=== PATIENT | male | born 1995 | race Caucasian/White ===

== ENCOUNTER → 2020-09-26 09:52 | Outpatient (CLI) | payer OTHER, SELFPAY ==
[2020-09-26 11:02] LABS: Erythrocyte Sedimentation Rate 7 mm/hr (0-20)
[2020-09-26 11:04] LABS: Absolute Lymphocyte Count 2.52 X10^3/uL (0.83-4.51); Absolute Neutrophil Count 4.2 X10^3/uL (2.0-7.7); Basophil# 0.08 X10^3/uL; Eosinophils% 3.9 % (0-5); Hematocrit 46.2 % (40-54); Lymphocyte # 2.52 X10^3/ul (4.0); Lymphocyte % 32.4 % (19-41); Mean Corp Hgb Conc 32.5 g/dL (32-36); Mean Corpuscular Hgb 28.1 pg (27.0-32.0); Mean Corpuscular Volume 86.7 fL (80-94); Mean Platelet Vol. 12.1 fl (6.2-12.0); Monocyte# 0.63 X10^3/uL; Monocyte% 8.1 % (0-10); NRBC Flagged by Analyzer 0 % (0-5); Neutrophil # 4.22 X10^3/uL (2.7-7.7); Neutrophil % 54.3 % (47-70); Platelet Count 230 K/mm3 (150-450); RBC Distribution Width CV 13.8 % (11.6-14.6); Red Blood Count 5.33 M/mm3 (4.6-6.2); White Blood Count 7.8 K/mm3 (4.4-11.0)
[2020-09-26 11:26] LABS: ALB/GLOB Ratio 1.4 RATIO (0.9-2.4); AST(SGOT) 19 U/L (15-37); Alanine Aminotransfer ALT/SGPT 36 U/L (16-61); Albumin, Serum 4.6 g/dL (3.2-5.0); Alkaline Phosphatase 58 U/L (45-117); Anion Gap 4 (5-15); BUN 12 mg/dL (7-18); BUN/Creat Ratio 13.7 RATIO (10-20); Calcium,Total 9.7 mg/dL (8.5-10.1); Chloride 107 mmol/L (98-107); Creatinine, Serum 0.88 mg/dL (0.70-1.30); EST Glomerular Filtration Rate 111 mL/min (>60); Est Glom Filt Rate - Afr Amer 134 mL/min (>60); Globulin 3.2 g/dL (2.2-4.2); Glucose 92 mg/dL (74-106); Potassium 3.8 mmol/L (3.5-5.1); Protein, Total 7.8 g/dL (6.4-8.2); Sodium Level 138 mmol/L (136-145)
[2020-09-27 16:08] LABS: Endomysial Antibody IgA Negative (Negative)
[2020-09-27 16:44] LABS: Immunoglobulin A 175 mg/dL (90-386); t-Transglutaminase IgA <2 U/mL (0-3)
== END ==
DX: R10.9 Unspecified abdominal pain (principal); R10.84 Generalized abdominal pain; R63.4 Abnormal weight loss
CPT/HCPCS: 36415; 80053; 82784; 83516; 85025; 85652; 86255

== ENCOUNTER 2021-09-11 15:45 | Emergency (ER) | payer OTHER, SELFPAY ==
[2021-09-11 15:46] VITALS: BP 162/94; PULSE 125; RESP 18; TEMP 36.7; O2SAT 97; BMI 30.8
[2021-09-11 16:06] LABS: Absolute Lymphocyte Count 1.36 X10^3/uL (0.83-4.51); Absolute Neutrophil Count 7.6 X10^3/uL (2.0-7.7); Basophil# 0.03 X10^3/uL; Basophil% 0.3 % (0-1); Hematocrit 45.6 % (40-54); Hemoglobin 15.7 g/dL (13.0-16.5); Lymphocyte # 1.36 X10^3/ul (0.83-4.51); Lymphocyte % 14.2 % (19-41); Mean Corp Hgb Conc 34.4 g/dL (32-36); Mean Corpuscular Hgb 28.8 pg (27.0-32.0); Mean Corpuscular Volume 83.7 fL (80-94); Mean Platelet Vol. 10.8 fl (6.2-12.0); Monocyte# 0.52 X10^3/uL; Monocyte% 5.4 % (0-10); NRBC Flagged by Analyzer 0 % (0-5); Neutrophil # 7.62 X10^3/uL (2.7-7.7); Neutrophil % 79.7 % (47-70); Platelet Count 296 K/mm3 (150-450); RBC Distribution Width CV 13.4 % (11.6-14.6); RBC Distribution Width SD 41.1 fl (35.1-43.9); Red Blood Count 5.45 M/mm3 (4.6-6.2); White Blood Count 9.6 K/mm3 (4.4-11.0)
[2021-09-11 16:19] LABS: Anion Gap 9 (5-15); BUN 12 mg/dL (7-18); BUN/Creat Ratio 11.3 RATIO (10-20); Calcium,Total 9.7 mg/dL (8.5-10.1); Chloride 103 mmol/L (98-107); Creatinine, Serum 1.06 mg/dL (0.70-1.30); EST Glomerular Filtration Rate 89 mL/min (>60); Est Glom Filt Rate - Afr Amer 107 mL/min (>60); Estimated Creatinine Clearance 108.08 ml/min; Glucose 106 mg/dL (74-106); Potassium 3.8 mmol/L (3.5-5.1); Sodium Level 137 mmol/L (136-145)
--- NOTE | 2021-09-11 16:30 | EDS_ITS ---
HPI HPI - GI History of Present Illness Chief Complaint: Abd Pain Detail of Chief Complaint: Abdominal pain Informant: patient Narrative Narrative: Is the emergency department complaint of abdominal pain that started this morning. Patient states that he has a history of chronic abdominal pain that he has been dealing with for about 6 and half years. Patient used to see a hemodialysis patient care specialist in [place] and that he moved to this area about a year ago. He was seeing a hemodialysis patient care specialist and [place] but then his insurance changed and he would like to follow-up with somebody here locally. Patient states that he has intermittent bouts of severe abdominal pain monthly or bimonthly. This pain is similar to other bouts he had in the past. Patient states that he had an upper and lower scope about 6 months ago that showed the beginning of ulcers in his stomach and some polyps that he had removed from his colon. Patient takes daily pantoprazole. Patient currently rates his pain a 6 out of 10. He describes nausea and vomiting. Patient also with history of chronic diarrhea. He denies any fevers. Patient states that normally he does not go to the hospital he gets these episodes. Patient also states that typically GI cocktail seem to be quite helpful in treating his pain. Prior similar symptoms: Yes PFSH PFSH Medical History no medical history Home Medications dicyclomine 20 mg PO TIDAC #20 capsule 09/11/21 [Rx Last Taken Unknown] lidocaine HCl [Lidocaine Viscous] 15 ml MUCOUS MEMBRANE Q8H PRN #100 ml 09/11/21 [Rx Last Taken Unknown] Allergy/AdvReac Type Severity Reaction Status Date / Time No Known Allergies Allergy Verified 09/11/21 15:48 Social History Smoking Status: Unknown if ever smoked ROS [facility] ED Constitutional Constitutional ED: Reports systems reviewed and no addt'l complaints, except as documented; Denies body ache(s), change in weight or chills Eyes Eyes: Denies acute decrease in peripheral vision, change in vision, double vision or loss of vision ENT ENT ED: Reports none; Denies ear pain, lip swelling, loss taste/smell, neck pain, otalgia or sore throat Cardiovascular Cardiovascular: Reports none; Denies abdominal pain, chest pain with activity, leg edema, lightheadedness, palpitations, rapid heart rate or syncope Respiratory/Chest Respiratory/Chest: Reports none; Denies change in mental status, dry cough, dyspnea, hemoptysis, shortness of breath at rest or shortness of breath with exertion Gastrointestinal Gastrointestinal: Reports none, abdominal pain, diarrhea, nausea and vomiting; Denies change in stool character, hematemesis, hematochezia, melena or rectal bleeding Genitourinary Genitourinary ED: Reports none; Denies abdominal discomfort, anuria, dysuria, genital pain or polyuria Musculoskeletal Musculoskeletal: Reports none; Denies arthralgias, back pain, difficulty walking, extremity pain, muscle weakness or myalgias Integumentary Reports none; Denies abscess or rash Neurologic Neurologic: Reports none; Denies abnormal gait, confusion, focal weakness, frequent falls, headache(s), loss of vision, numbness, paresthesias, radicular pain, vertigo or weakness Psychiatric Psychiatric: Reports systems reviewed and no addt'l complaints, except as documented and none; Denies behavioral changes, confusion, difficulty concentrating, hallucinations, suicidal ideation, tactile hallucinations or visual hallucinations Endocrine Endocrinology: Denies none, cold intolerance, excessive sweating, fatigue or heat intolerance Hematologic/Lymphatic Hematologic/Lymphatic: Reports none; Denies anemia, easy bleeding or easy bruising Allergic/Immunologic Allergic/Immunologic ED: Denies as per HPI, none, lip swelling, mouth swelling, throat swelling, tongue swelling or hives EXAM Physical Exam Const Vital Signs: 09/11/21 15:46 Temperature 98.1 F Temperature Source Temporal Pulse Rate 125 H Respiratory Rate 18 Blood Pressure 162/94 H Blood Pressure Mean 116 Pulse Ox 97 Oxygen Delivery Method Room Air Positive well nourished and well developed General Appearance ED: well developed and NAD HEENT Reports TM's clear and moist mucous membranes normocephalic and atraumatic; Negative for trauma or tenderness Tympanic Membrane ED: Yes TM's clear Eyes PERRL and EOMs intact bilaterally General Eye ED: Negative for pale conjunctiva or scleral icterus Neck no lymphadenopathy, supple and no JVD General: Negative for tenderness Chest Wall inspection of chest normal and palpation of chest normal Chest: Negative for tenderness Resp normal respiratory effort and clear to auscultation bilaterally Effort and Inspection: Negative for respiratory distress or pain with movement Auscultation: Negative for rhonchi, wheezes or diminished lung sounds Cardio regular rate, regular rhythm, S1 normal heart sound, S2 normal heart sound and no murmurs Peripheral Pulses: pulses 2+ throughout GI normal to inspection, nondistended, normoactive bowel sounds, soft to palpation, non-distended and no masses GI Narrative: Patient with diffuse tenderness over the epigastric region as well as the abdomen diffusely. There is no rebound, rigidity, or peritoneal signs. Palpation: tender Back/Spine no CVA tenderness and no thoracic nor lumbar tenderness Extremity normal to inspection General Extremety ED: Negative for edema General Extremity: Negative for edema Neuro oriented x3, CN's II-XII intact bilaterally, no sensory deficits noted and gait normal Sensorium / Orientation: awake, alert, oriented to person, oriented to place and oriented to time Motor Exam: strength 5/5 throughout and strength abnormal Psych mental status grossly normal Skin no rashes or lesions noted and no wounds MDM MDM MDM Narrative Medical decision making narrative: IV line established on arrival. Patient did receive a GI cocktail which did seem to help his pain but then the pain started come back and received 4 mg of morphine and [address] scan of the abdomen pelvis without contrast showed some thickening of the descending colon and sigmoid colon which could represent colitis versus nondistended bowel. Clinically I do not feel patient has colitis. Patient states that presentation of his symptoms are similar to what he has had over the last 6-1/2 years and typically the only thing that seems to help his GI cocktails. Patient used to be on Bentyl and ran out. Patient will be given a prescription for GI cocktails as well as Bentyl and referral to GI for follow-up. Patient advised to return if worsening pain, fever, bloody stools, or condition should worsen anyway. Lab Data Attestation: I reviewed the patient's lab results. Labs: Laboratory Results - last 24 hr 09/11/21 09/11/21 09/11/21 15:56 15:56 15:56 WBC 9.6 RBC 5.45 Hgb 15.7 Hct 45.6 MCV 83.7 MCH 28.8 MCHC 34.4 RDW Std Deviation 41.1 RDW Coeff of Misty 13.4 Plt Count 296 MPV 10.8 Immature Gran % (Auto) 0.400 Neut % (Auto) 79.7 H Lymph % (Auto) 14.2 L [place] % (Auto) 5.4 Eos % (Auto) 0.0 Baso % (Auto) 0.3 Absolute Neuts (auto) 7.6 Absolute Lymphs (auto) 1.36 Nucleated RBC % 0 Sodium 137 Potassium 3.8 Chloride 103 Carbon Dioxide 25.0 Anion Gap 9 BUN 12 Creatinine 1.06 Estim Creat Clear Calc 108.08 Est GFR (MDRD) Af Amer 107 Est GFR (MDRD) Non-Af 89 BUN/Creatinine Ratio 11.3 Glucose 106 Calcium 9.7 Total Bilirubin 0.40 Direct Bilirubin 0.12 AST 17 ALT 34 Alkaline Phosphatase 61 Total Protein 8.1 Albumin 4.7 Globulin 3.4 Lipase Urine Color Urine Clarity Urine pH Ur Specific [place] Urine Protein Urine Glucose (UA) Urine Ketones Urine Occult Blood Urine Nitrite Urine Bilirubin Urine Urobilinogen Ur Leukocyte Esterase Urine RBC Urine WBC Ur Squamous Epith Cells Urine Bacteria Urine Mucus 09/11/21 09/11/21 15:56 17:25 WBC RBC Hgb Hct MCV MCH MCHC RDW Std Deviation RDW Coeff of Misty Plt Count MPV Immature Gran % (Auto) Neut % (Auto) Lymph % (Auto) [place] % (Auto) Eos % (Auto) Baso % (Auto) Absolute Neuts (auto) Absolute Lymphs (auto) Nucleated RBC % Sodium Potassium Chloride Carbon Dioxide Anion Gap BUN Creatinine Estim Creat Clear Calc Est GFR (MDRD) Af Amer Est GFR (MDRD) Non-Af BUN/Creatinine Ratio Glucose Calcium Total Bilirubin Direct Bilirubin AST ALT Alkaline Phosphatase Total Protein Albumin Globulin Lipase 96 Urine Color Yellow Urine Clarity Clear Urine pH 7.0 Ur Specific [place] 1.010 Urine Protein 15 H Urine Glucose (UA) Normal Urine Ketones 15 H Urine Occult Blood Negative Urine Nitrite Negative Urine Bilirubin Negative Urine Urobilinogen Normal Ur Leukocyte Esterase Negative Urine RBC 0 SEEN Urine WBC 0 SEEN Ur Squamous Epith Cells 0 SEEN Urine Bacteria RARE Urine Mucus 0 SEEN Radiography Diagnostic Testing: Clinical Impression(s) from Imaging Studies Abdomen/Pelvis CT 09/11/21 17:53 IMPRESSION: Colitis of the descending and rectosigmoid colon versus artifact of under distention. Individualized dose optimization techniques were used for this CT. at 1847 Reported and signed by: Richmond Andrea MD Electronically Signed: Richmond Andrea MD at 18:46 EST Reading Location ID and State: [address] [place] [address] Tel , Service support , Discharge Plan Triage Chief Complaint: Abd Pain ED Provider: Barron Salazar Dx/Rx/DC Orders Clinical Impression: Abdominal pain Instructions: ED Abdominal Pain Unkn Cause Male... Prescriptions: New dicyclomine 10 MG capsule 20 mg PO TIDAC Qty: 20 RF: 0 lidocaine HCl [Lidocaine Viscous] 2 % solution 15 ml mucous membrane Q8H PRN (Reason: pain) Qty: 100 RF: 0 [facility] Referrals: Dov Mendoza DO [STAFF PHYSICIAN] - 3-[address] [facility] V[facility] [Primary Care Provider] - Disposition Disposition: Home, Self Care
[2021-09-11] MEDS: 0.9% Normal Saline 1,000 ML 999 ML IV (17:01)
[2021-09-11] MEDS: Ondansetron 4 MG/2 ML Vial IV ×2 (17:08→18:09)
[2021-09-11] MEDS: Mag Hydrox/Al Hydrox/Simeth 30 ML UDC PO (17:08)
[2021-09-11 17:28] LABS: AST(SGOT) 17 U/L (15-37); Alanine Aminotransfer ALT/SGPT 34 U/L (16-61); Albumin, Serum 4.7 g/dL (3.2-5.0); Alkaline Phosphatase 61 U/L (45-117); Bilirubin, Direct 0.12 mg/dL (0.00-0.30); Globulin 3.4 g/dL (2.2-4.2); Protein, Total 8.1 g/dL (6.4-8.2)
[2021-09-11 17:32] LABS: Lipase 96 U/L (73-393)
[2021-09-11 17:37] LABS: Mucous, Urine 0 SEEN /hpf (<or=2+); Red Blood Cells-Urine 0 SEEN /hpf (0-5); Squamous Epithelial Cells - UA 0 SEEN /hpf (0-5); White Blood Cells 0 SEEN /hpf (0-5)
--- NOTE | 2021-09-11 17:53 | CT_ITS ---
HISTORY: abdominal pain EXAMINATION: CT Abdomen And Pelvis W/O Contrast Injection TECHNIQUE: Multiple axial images were obtained of the abdomen and pelvis without oral or IV contrast. A radiation dose optimization technique was used for this scan. IV Contrast dosage and agent: None. Oral contrast: None. COMPARISON: None FINDINGS: LOWER CHEST: Lung bases are clear. No cardiomegaly or pericardial effusion. LIVER: Homogeneous. No focal mass. GALLBLADDER AND BILIARY TREE: No calcified gallstones. No gallbladder distension or wall edema. No intra- or extrahepatic biliary ductal dilation. PANCREAS: No focal cystic or solid mass. SPLEEN: Normal size without focal cystic or solid mass. ADRENAL GLANDS: No nodules. KIDNEYS AND URETERS: Normal renal size and position. No hydronephrosis or nephrolithiasis. PERITONEUM: No ascites or free air. BOWEL: Normal appendix. No stomach or bowel distension. Diffuse colonic wall thickening and minimal pericolonic stranding of the underdistended descending and rectosigmoid colon. LYMPH NODES: No enlarged mesenteric or retroperitoneal lymph nodes. VESSELS: Aorta is non-dilated. URINARY BLADDER: Unremarkable. REPRODUCTIVE ORGANS: No pelvic masses. ABDOMINAL WALL: No discrete abdominal or pelvic wall hernia. BONES: No acute or aggressive abnormality. CT/Abdomen/Pelvis without Cont IMPRESSION: Colitis of the descending and rectosigmoid colon versus artifact of under distention. Individualized dose optimization techniques were used for this CT. at 1847 Reported and signed by: Richmond Andrea MD Electronically Signed: Richmond Andrea MD at 18:46 EST ,
[2021-09-11 17:54] LABS: Color, Urine Yellow (Yellow); Glucose, Dipstick Normal (Normal); Ketone-Dipstick 15 mg/dl (Negative); Leukocyte Esterase-Dipstick Negative /ul (Negative); Nitrite-Dipstick Negative (Negative); Occult Blood-Urine Negative /ul (Negative); Protein-Dipstick 15 mg/dl (Negative); Urine Bilirubin Dipstick Negative (Negative); Urine Clarity Clear (Clear); Urine Urobilinogen Normal (Normal)
[2021-09-11] MEDS: Morphine 4 MG/ML Syringe IV (18:07)
[2021-09-11 18:10] LABS: Bacteria RARE /hpf (None Seen)
[2021-09-11 19:36] VITALS: BP 135/78; PULSE 90; RESP 18; O2SAT 98
== END 2021-09-11 19:37 | disposition home or self-care (01) ==
PROVIDERS: Emergency Provider Emergency Medicine; Visit Provider Emergency Medicine
DX: R10.9 Unspecified abdominal pain (principal); Z87.19 Personal history of other diseases of the digestive system; K52.9 Noninfective gastroenteritis and colitis, unspecified
CPT/HCPCS: 74176; 80048; 80076; 81001; 83690; 85025; 96361; 96374; 96375; 96376; 99283; A4216; J2405

== ENCOUNTER 2021-09-21 16:20 | Emergency (ER) | payer OTHER, SELFPAY ==
[2021-09-21 16:20] VITALS: BP 161/114; PULSE 103; RESP 18; TEMP 36.2; O2SAT 99; BMI 31.5
[2021-09-21 17:29] VITALS: BP 183/116; PULSE 83; RESP 19; TEMP 36.8; O2SAT 100
--- NOTE | 2021-09-21 17:50 | ED.VIS.GI ---
HPI HPI - GI History of Present Illness Chief Complaint: Abd Pain Informant: patient Abdominal Pain/Flank Pain Onset: Today Context: Sudden Onset Timing: Continuous Quality: Cramping Location: Epigastric and LLQ Worsened by: Nothing Relieved by: - (GI cocktail) Nausea/Vomiting/Emesis GI Symptom: Positive for Nausea and Vomiting Diarrhea/Melena/Hematochezia GI Symptom: Positive for Diarrhea Associated Symptoms Associated Symptoms: Negative for Dysuria, Frequency and Hematuria Narrative Narrative: Patient presents with abdominal pain that began today. Patient states he has had ongoing episodes of this for the past several years. Patient states his pain is cramping. Patient states it is over the left lower quadrant and epigastric area. Patient was seen here approximately 10 days ago and was given GI cocktail and IV medication at that time which helped. Patient states she is unable to keep anything down today. Patient states he is having dark emesis and is concerned about blood in his emesis. Patient states his stools have been somewhat dark as well. Patient denies any dysuria or hematuria. Patient denies any fevers or chills. PFSH PFS Medical History Colon wall thickening Home Medications lidocaine HCl [Lidocaine Viscous] 15 ml MUCOUS MEMBRANE Q8H PRN #100 ml 09/11/21 [Rx Last Taken Unknown] buspirone mg 09/21/21 [History Last Taken Unknown] dextroamphetamine-amphetamine PO 09/21/21 [History Last Taken Unknown] hydrocodone-acetaminophen 1 tab PO Q6H PRN PRN 3 Days #10 tablet 09/21/21 [Rx Last Taken Unknown] Allergy/AdvReac Type Severity Reaction Status Date / Time No Known Allergies Allergy Verified 09/21/21 16:22 Social History Smoking Status: Current every day smoker tobacco type: e-cigarettes ROS ROS ED Constitutional Constitutional ED: Denies chills or fever(s) Eyes Eyes: Denies blurry vision or change in vision ENT ENT ED: Denies rhinorrhea or sore throat Cardiovascular Cardiovascular: Denies chest pain or palpitations Respiratory/Chest Respiratory/Chest: Denies cough or dyspnea Gastrointestinal Gastrointestinal: Reports abdominal pain, diarrhea, nausea and vomiting Genitourinary Genitourinary ED: Denies dysuria or hematuria Musculoskeletal Musculoskeletal: Denies back pain or neck pain Integumentary Denies abscess or rash Neurologic Neurologic: Reports headache(s); Denies weakness Allergic/Immunologic Allergic/Immunologic ED: Denies mouth swelling or urticaria EXAM Physical Exam Const Vital Signs: 09/21/21 16:20 09/21/21 17:29 09/21/21 19:10 Temperature 97.1 F L 98.3 F Temperature Source Temporal Oral Pulse Rate 103 H 83 82 Respiratory Rate 18 19 H 16 Blood Pressure 161/114 H 183/116 H 154/116 H Blood Pressure Mean 129 138 128 Pulse Ox 99 100 97 Oxygen Delivery Method Room Air Room Air Room Air 09/21/21 21:20 Temperature Temperature Source Pulse Rate 92 Respiratory Rate 23 H Blood Pressure 144/96 H Blood Pressure Mean 112 Pulse Ox 98 Oxygen Delivery Method Room Air Positive well nourished and well developed General Appearance ED: well developed HEENT Reports moist mucous membranes Neck supple and no JVD Resp normal respiratory effort and clear to auscultation bilaterally Cardio regular rate, regular rhythm and no murmurs GI normal to inspection, nondistended, normoactive bowel sounds Palpation: soft and tender epigastric and LLQ; Negative for guarding or rebound tenderness present Extremity normal to inspection General Extremety ED: Negative for edema or tenderness General Extremity: Negative for edema Neuro oriented x3, CN's II-XII intact bilaterally and no sensory deficits noted Sensorium / Orientation: alert Motor Exam: strength 5/5 throughout Psych mental status grossly normal Skin no rashes or lesions noted MDM MDM MDM Narrative Medical decision making narrative: Patient was given IV fluids, morphine, Bentyl, and Zofran initially. CBC was within normal limits. Comprehensive metabolic profile showed a mild hypokalemia 3.2. Urinalysis shows urine ketones of 150 but there is no evidence of urinary tract infection. CT scan of the abdomen and pelvis was obtained. There is no acute intra-abdominal abnormality. This was interpreted by the radiologist and reviewed by myself. Patient still complaining of some pain and nausea after this. Patient was given a repeat dose of morphine and Zofran. Patient was advised of his findings. Patient states he has an appoint with Dr. Mendoza, card hand, at the end of this month. Patient was given a prescription for a short course of [place]. Patient was instructed to continue his pantoprazole as previously prescribed. Patient understood and was agreeable with the plan. All questions were answered. Lab Data Attestation: I reviewed the patient's lab results. Labs: Laboratory Results - last 24 hr 09/21/21 09/21/21 09/21/21 17:25 17:25 20:57 WBC 9.0 RBC 5.39 Hgb 15.2 Hct 45.7 MCV 84.8 MCH 28.2 MCHC 33.3 RDW Std Deviation 42.0 RDW Coeff of Misty 13.5 Plt Count 286 MPV 10.6 Immature Gran % (Auto) 0.200 Neut % (Auto) 85.3 H Lymph % (Auto) 9.3 L [place] % (Auto) 4.7 Eos % (Auto) 0.3 Baso % (Auto) 0.2 Absolute Neuts (auto) 7.7 Absolute Lymphs (auto) 0.83 Nucleated RBC % 0 Sodium 139 Potassium 3.2 L Chloride 105 Carbon Dioxide 27.0 Anion Gap 7 BUN 12 Creatinine 1.04 Estim Creat Clear Calc 110.16 Est GFR (MDRD) Af Amer 110 Est GFR (MDRD) Non-Af 91 BUN/Creatinine Ratio 11.5 Glucose 111 H Calcium 9.8 Total Bilirubin 0.60 Direct Bilirubin 0.19 AST 27 ALT 46 Alkaline Phosphatase 67 Total Protein 8.1 Albumin 4.6 Globulin 3.5 Albumin/Globulin Ratio 1.3 Urine Color Yellow Urine Clarity Sl. Cloudy Urine pH 8.0 Ur Specific [place] 1.015 Urine Protein 15 H Urine Glucose (UA) Normal Urine Ketones 150 A* Urine Occult Blood 10 H Urine Nitrite Negative Urine Bilirubin Negative Urine Urobilinogen Normal Ur Leukocyte Esterase Negative Urine RBC 0-5 SEEN Urine WBC 0 SEEN Ur Squamous Epith Cells 0-5 SEEN Amorphous Sediment 1+ PHOS Urine Bacteria 0 SEEN Urine Mucus 0 SEEN Radiography Diagnostic Testing: Clinical Impression(s) from Imaging Studies Abdomen/Pelvis CT 09/21/21 19:40 IMPRESSION: No acute intra-abdominal process. Small hiatal hernia. Electronically Signed: Vilma Espinoza MD at 20:02 EST , Discharge Plan Triage Chief Complaint: Abd Pain ED Provider: Schwiger,Jack Dx/Rx/DC Orders Clinical Impression: Abdominal pain of unknown cause Instructions: ED Abdominal Pain Unkn Cause Male... Prescriptions: New hydrocodone-acetaminophen [hydrocodone-acetaminophen] 1 TABLET tablet 1 tab PO Q6H PRN PRN (Reason: Pain) 3 Days Qty: 10 RF: 0 No Action lidocaine HCl [Lidocaine Viscous] 2 % solution 15 ml mucous membrane Q8H PRN (Reason: pain) Qty: 100 RF: 0 buspirone 10 mg tablet RF: 0 dextroamphetamine-amphetamine 25 mg capsule,extended release 24hr PO RF: 0 [facility] Referrals: Friend,DO Dov [STAFF PHYSICIAN] - Keep [place] [facility] - 3-5 Days Disposition Disposition: Home, Self Care
[2021-09-21 17:51] LABS: Absolute Lymphocyte Count 0.83 X10^3/uL (0.83-4.51); Absolute Neutrophil Count 7.7 X10^3/uL (2.0-7.7); Basophil# 0.02 X10^3/uL; Basophil% 0.2 % (0-1); Eosinophil# 0.03 X10^3/uL; Eosinophils% 0.3 % (0-5); Hematocrit 45.7 % (40-54); Hemoglobin 15.2 g/dL (13.0-16.5); Lymphocyte # 0.83 X10^3/ul (0.83-4.51); Lymphocyte % 9.3 % (19-41); Mean Corp Hgb Conc 33.3 g/dL (32-36); Mean Corpuscular Hgb 28.2 pg (27.0-32.0); Mean Corpuscular Volume 84.8 fL (80-94); Mean Platelet Vol. 10.6 fl (6.2-12.0); Monocyte# 0.42 X10^3/uL; Monocyte% 4.7 % (0-10); NRBC Flagged by Analyzer 0 % (0-5); Neutrophil # 7.65 X10^3/uL (2.7-7.7); Neutrophil % 85.3 % (47-70); Platelet Count 286 K/mm3 (150-450); RBC Distribution Width CV 13.5 % (11.6-14.6); Red Blood Count 5.39 M/mm3 (4.6-6.2)
[2021-09-21 17:58] LABS: ALB/GLOB Ratio 1.3 RATIO (0.9-2.4); AST(SGOT) 27 U/L (15-37); Alanine Aminotransfer ALT/SGPT 46 U/L (16-61); Albumin, Serum 4.6 g/dL (3.2-5.0); Alkaline Phosphatase 67 U/L (45-117); Anion Gap 7 (5-15); BUN 12 mg/dL (7-18); BUN/Creat Ratio 11.5 RATIO (10-20); Bilirubin, Direct 0.19 mg/dL (0.00-0.30); Calcium,Total 9.8 mg/dL (8.5-10.1); Chloride 105 mmol/L (98-107); Creatinine, Serum 1.04 mg/dL (0.70-1.30); EST Glomerular Filtration Rate 91 mL/min (>60); Est Glom Filt Rate - Afr Amer 110 mL/min (>60); Estimated Creatinine Clearance 110.16 ml/min; Globulin 3.5 g/dL (2.2-4.2); Glucose 111 mg/dL (74-106); Potassium 3.2 mmol/L (3.5-5.1); Protein, Total 8.1 g/dL (6.4-8.2); Sodium Level 139 mmol/L (136-145)
[2021-09-21] MEDS: Ondansetron 4 MG/2 ML Vial IV ×2 (18:01→19:57)
[2021-09-21] MEDS: Morphine 4 MG/ML Syringe IV ×2 (18:01→19:57)
[2021-09-21] MEDS: 0.9% Normal Saline 1,000 ML 1000 ML IV (18:02)
[2021-09-21] MEDS: Dicyclomine 20 MG/2 ML Vial IM (18:06)
--- NOTE | 2021-09-21 18:28 | ED.RN ---
PER PT REQUEST, THIS RN CONTACTED GIRLFRIEND DANIEL AT INFORMED HER OF PT DEPARTMENT IN ED.
[2021-09-21 19:10] VITALS: BP 154/116; PULSE 82; RESP 16; O2SAT 97
--- NOTE | 2021-09-21 19:40 | CT_ITS ---
STUDY: CT ABDOMEN AND PELVIS WITH CONTRAST REASON FOR EXAM: Male, 26 years old. Abdominal pain -- IV PO Contrast RADIATION DOSAGE (If Supplied By Facility): CTDIvol = ( 15.69 ) mGy, DLP = ( 1126.21 ) mGycm TECHNIQUE: Transaxial images were obtained from the dome of the diaphragm to the symphysis pubis without oral contrast. Oral and amp; IV Gastrografin and amp; 100mL Isovue-370 was administered. Sagittal and coronal images were reconstructed. Individualized dose optimization techniques were used for this CT. COMPARISON: 09/11/2021 FINDINGS: The visualized lung bases are unremarkable. The visualized portions of the heart are within normal limits. Normal liver. Normal gallbladder and extrahepatic biliary system. Normal spleen. Normal pancreas. Normal bilateral adrenal glands. Normal right kidney. Normal left kidney. There is a small hiatal hernia. Normal small intestine. Normal colon. The appendix is visualized and appears normal. Normal abdominal aorta. Normal inferior vena cava. Normal retroperitoneum. Normal urinary bladder. Normal abdominal wall. Normal osseous structures. CT/Abdomen/Pelvis WITH Contrast IMPRESSION: No acute intra-abdominal process. Small hiatal hernia. Electronically Signed: Vilma Espinoza MD at 20:02 EST ,
[2021-09-21 21:06] LABS: Bacteria 0 SEEN /hpf (None Seen); Mucous, Urine 0 SEEN /hpf (<or=2+); White Blood Cells 0 SEEN /hpf (0-5)
[2021-09-21 21:12] LABS: Color, Urine Yellow (Yellow); Glucose, Dipstick Normal (Normal); Leukocyte Esterase-Dipstick Negative /ul (Negative); Nitrite-Dipstick Negative (Negative); Occult Blood-Urine 10 /ul (Negative); Protein-Dipstick 15 mg/dl (Negative); Specific Gravity, Urine 1.015 (1.002-1.030); Urine Bilirubin Dipstick Negative (Negative); Urine Clarity Sl. Cloudy (Clear); Urine Urobilinogen Normal (Normal)
[2021-09-21 21:20] VITALS: BP 144/96; PULSE 92; RESP 23; O2SAT 98
[2021-09-21 21:20] LABS: Ketone-Dipstick 150 mg/dl (Negative)
[2021-09-21 21:21] LABS: Amorphous Sediment 1+ PHOS; Red Blood Cells-Urine 0-5 SEEN /hpf (0-5); Squamous Epithelial Cells - UA 0-5 SEEN /hpf (0-5)
[2021-09-21 23:31] VITALS: BP 129/89; PULSE 72; RESP 16; TEMP 36.9; O2SAT 98
== END 2021-09-21 23:32 | disposition home or self-care (01) ==
PROVIDERS: Emergency Provider Emergency Medicine; Visit Provider Emergency Medicine
DX: R10.9 Unspecified abdominal pain (principal); F17.210 Nicotine dependence, cigarettes, uncomplicated; R11.2 Nausea with vomiting, unspecified; R19.7 Diarrhea, unspecified; E87.6 Hypokalemia; K92.1 Melena
CPT/HCPCS: 74177; 80048; 80053; 80076; 81001; 85025; 96361; 96372; 96374; 96375; 96376; 99284; J7030; J7050; Q9967; A4216; J2405

== ENCOUNTER 2021-10-04 11:31 | Outpatient (CLI) | payer OTHER, SELFPAY ==
[2021-10-04 16:42] LABS: Absolute Lymphocyte Count 2.42 X10^3/uL (0.83-4.51); Absolute Neutrophil Count 3.6 X10^3/uL (2.0-7.7); Basophil# 0.05 X10^3/uL; Basophil% 0.7 % (0-1); Eosinophil# 0.13 X10^3/uL; Eosinophils% 1.9 % (0-5); Hematocrit 44.2 % (40-54); Hemoglobin 14.7 g/dL (13.0-16.5); Lymphocyte # 2.42 X10^3/ul (0.83-4.51); Lymphocyte % 35.4 % (19-41); Mean Corp Hgb Conc 33.3 g/dL (32-36); Mean Corpuscular Hgb 28.2 pg (27.0-32.0); Mean Corpuscular Volume 84.8 fL (80-94); Monocyte# 0.63 X10^3/uL; Monocyte% 9.2 % (0-10); NRBC Flagged by Analyzer 0 % (0-5); Neutrophil % 52.7 % (47-70); Platelet Count 286 K/mm3 (150-450); RBC Distribution Width CV 13.5 % (11.6-14.6); RBC Distribution Width SD 42.3 fl (35.1-43.9); Red Blood Count 5.21 M/mm3 (4.6-6.2); White Blood Count 6.8 K/mm3 (4.4-11.0)
[2021-10-04 17:18] LABS: Erythrocyte Sedimentation Rate 3 mm/hr (0-20)
[2021-10-04 17:32] LABS: ALB/GLOB Ratio 1.2 RATIO (0.9-2.4); AST(SGOT) 30 U/L (15-37); Alanine Aminotransfer ALT/SGPT 44 U/L (16-61); Albumin, Serum 4.1 g/dL (3.2-5.0); Alkaline Phosphatase 68 U/L (45-117); Anion Gap 3 (5-15); BUN 17 mg/dL (7-18); BUN/Creat Ratio 16.7 RATIO (10-20); CRP < 2.90 mg/L (0.0-3.0); Calcium,Total 8.8 mg/dL (8.5-10.1); Chloride 105 mmol/L (98-107); Creatinine, Serum 1.02 mg/dL (0.70-1.30); EST Glomerular Filtration Rate 93 mL/min (>60); Est Glom Filt Rate - Afr Amer 112 mL/min (>60); Globulin 3.5 g/dL (2.2-4.2); Glucose 93 mg/dL (74-106); LDH 224 U/L (87-241); Potassium 3.9 mmol/L (3.5-5.1); Protein, Total 7.6 g/dL (6.4-8.2); Sodium Level 138 mmol/L (136-145)
[2021-10-07 16:07] LABS: Anti-Centromere B Ab <0.2 AI (0.0-0.9); Anti-Chromatin <0.2 AI (0.0-0.9); Anti-Jo <0.2 AI (0.0-0.9); Anti-Scleroderma-70 AB <0.2 AI (0.0-0.9); RNP Ab <0.2 AI (0.0-0.9); SJOGREN'S Anti-SS-A test < 0.2 AI (0.0-0.9); SJOGREN'S Anti-SS-B test < 0.2 AI (0.0-0.9); Smith Ab <0.2 AI (0.0-0.9)
[2021-10-07 16:14] LABS: Anti-dsDNA Ab 1 IU/mL (0-9)
[2021-10-11 12:09] LABS: Albumin 4.4 g/dL (2.9-4.4); Alpha-1-Globulins 0.3 g/dL (0.0-0.4); Alpha-2-Globulins 0.7 g/dL (0.4-1.0); Endomysial Antibody IgA Negative (Negative); Gamma Globulin 0.9 g/dL (0.4-1.8); Immunoglobulin A 198 mg/dL (90-386); Immunoglobulin G 748 mg/dL (603-1613); Immunoglobulin M 80 mg/dL (20-172); PROEL- TOTAL PROTEIN 7.3 g/dL (6.0-8.5)
[2021-10-11 18:47] LABS: Cytoplasmic Ab (C-ANCA) <1:20 titer (Neg:<1:20); Immunoglobulin E 116 IU/mL (6-495); Perinuclear Ab (P-ANCA) <1:20 titer (Neg:<1:20); t-Transglutaminase IgA <2 U/mL (0-3)
== END 2021-10-04 23:59 | disposition home or self-care (01) ==
LOC: LAB 11:34
PROVIDERS: Visit Provider Internal Medicine Gastroenterology
DX: R10.9 Unspecified abdominal pain (principal)
CPT/HCPCS: 36415; 80053; 82784; 82785; 83516; 83615; 84165; 85025; 85652; 86140; 86225; 86235; 86255; 86256; 86334

== ENCOUNTER 2021-10-09 11:46 | Day surgery (SDC) | payer OTHER, SELFPAY ==
[2021-10-09] VITALS (7 sets, daily range): BP systolic 111–120; BP diastolic 70–80; PULSE 58–77; RESP 16–17; TEMP 36.3–36.6; O2SAT 97–100; BMI 32.8
[2021-10-09] MEDS: Lactated Ringers 1,000 ML 15 ML IV (13:02)
--- NOTE | 2021-10-09 13:15 | COLBX_PTH ---
PATIENT: ANGY CONWAY LOC: EN U#:[id number] AGE/SX: 26/M ROOM: RE10/09/[address]: Dr. Dov Mendoza DO : 1995 BED: DIS: 10/09/2021 SPEC #: [id number] RECD: 10/09/21 16:15 STATUS: BRANDEN PEYTON #: [id number] DARY: 10/09/21 13:[address]: Dov Mendoza DEPT: SURGICAL PATHOLOGY RECD BY: Christina Sousa ENTERED: 10/10/21 09:00 SP TYPE: COLON BX OTHR DR: [facility] Tissues: A - Ileum, NOS B - COLON BIOPSY Procedures: Surgery Specimen Level IV HEADER OPERATION: Colonoscopy (MAC), biopsy PRE-OP DIAGNOSIS: Ulcerative colitis TISSUE SUBMITTED: A ? Terminal ileum, B ? Random colonic biopsy MICROSCOPIC DIAGNOSIS A. Terminal ileum, biopsy: Fragments of small intestinal mucosa, no pathologic diagnosis. B. Colon, random biopsy: Fragments of colonic mucosa, no pathologic diagnosis. SONIA:gregorio 10/11/2021 MICROSCOPIC DESCRIPTION Slides are reviewed. GROSS DESCRIPTION A - Received in fixative is one container labeled with the patient's name and designated terminal ileum biopsy. The specimen consists of multiple irregular fragments of light [place] soft tissue that in aggregate measure 1 x 0.6 x 0.1 cm. The specimen is totally submitted in one cassette. B - Received in fixative is one container labeled with the patient's name and designated random colonic biopsy. The specimen consists of multiple irregular fragments of light [place] soft tissue that in aggregate measure 2 x 1 x 0.1 cm. The specimen is totally submitted in one cassette. / SONIA:gregorio 10/10/2021 TC:4 CPT: 06686 x2
--- NOTE | 2021-10-09 13:47 | HP.PCM_ITS ---
History and Physical Date of Admission: 10/09/21 HÉCTOR CONWAY, is a 26 M who presents to the office today for Evaluation of abdominal pain. Héctor has presented to [facility] ED 2.09.01 and 09.21.21 for abdominal pain/cramping that has been ongoing since approximately which flares one to two times a month. With abdominal pain he gets nausea and vomiting (sometimes dark), chills and afterward he will have diarrhea. Reports that showers used to help. Reports that not eating late help a lot. Food triggers are beer, whiskey, salads, undercooked red meat. Reports he does smoke marijuana 1-2 times a day, he has attempted to stop for six months and this made no difference. Previously seen by bike technician in [facility], however with insurance change he would like to be local. Currently taking protonix and sucralfate and finds this somewhat helpful. EGD and colonoscopy performed at another location in the summer of 2020 finding ulcers of the stomach and polyps in the colon. Unsure of results. CT abd/pel 2.09.01 found diffuse colonic wall thickening and minimal pericolonic stranding of the descending and rectosigmoid colon. Remaining exam without acute or chronic remark. CT abd/pel .07.02 found small hiatal hernia and normal small intestine and colon. Remaining exam without acute or chronic remark. Reports gastric emptying test about four years ago because he threw up the eggs for the test. ROS Const Constitutional: No anorexia, fatigue, fever(s), weight change or sleep problems Eyes Eyes: No change in vision ENT ENT: No abnormal hearing, difficulty swallowing, mouth lesions, tongue swelling or throat swelling Resp Respiratory: No cough or shortness of breath Cardio Cardiology: No chest pain at rest, chest pain with exertion, shortness of breath or dyspnea on exertion Gastro GI: No difficulty swallowing Genitourinary Male: No difficulty urinating or burning urination Musc Musculoskeletal: No joint pain, joint swelling, muscle weakness or decreased muscle mass Skin Skin: No hair loss in leg, yellowing of the eye, itchy eyes, rash, skin ulcer or skin swelling Neuro Neurology: No abnormal hearing, abnormal movements, confusion, unsteady gait/balance or memory loss Psych Psychiatric: No anxiety, No confusion and No memory loss Endo Endocrine: No fatigue or weight change Aller/Imm Allergy/Immunologic: No itchy eyes, throat swelling or tongue swelling Diallo/Lymp Hematologic/Lymphatic: No easy bleeding, easy bruising or enlarged lymph nodes Exam Const General: cooperative and comfortable Nutritional Appearance: average body habitus and well nourished [facility] Head: normal to inspection Ears: hearing grossly normal bilaterally Nose: external nose normal Face and sinus: normal facial exam Mouth: oral mucosae normal Throat: posterior oropharynx normal Eyes General: appearance normal, both eyes and all related structures Neck Neck: normal visual inspection Chest Chest palpation & inspection: normal inspection of the chest and normal palpation of entire chest wall Resp Effort & Inspection: normal respiratory effort Auscultation: Bilateral: Clear to Auscultation Cardio Palpation: normal PMI Rate: regular rate Rhythm: regular rhythm GI Inspection: normal to inspection Auscultation: normal bowel sounds Percussion: normal to percussion Palpation: no hepatosplenomegaly Skin General: no rashes or lesions noted Neuro General: patient alert Extrem General: normal to inspection Psych Affect: normal affect Quality Reporting Tobacco Screening ([facility] 138) Smoking Status: Current every day smoker Assessment and Plan Assessment and Plan (1) Ulcerative colitis: Status: Acute Plan - Dr. Monae Friend, DO: We will evaluate his colon due to the abnormalities that was seen on the CT scan. It showed putting partial thickening of the left side of the colon with loss of haustra. (2) Cannabis hyperemesis syndrome concurrent with and due to cannabis abuse: Status: Acute Plan - Dr. Monae Friend, DO: Patient says he will try to stop smoking marijuana I have re-examined the patient. There are no clinical changes since date of exam.
--- NOTE | 2021-10-09 14:17 | OP.COLON_ITS ---
Patient Name: Héctor Bah Procedure Date: 10/09/2021 1:40 PM Date of : 1995 Age: 26 Procedure: Colonoscopy Indications: Generalized abdominal pain, Generalized abdominal distress Providers: Dov Mendoza DO Medicines: See the Anesthesia note for documentation of the administered medications Patient Profile: This is a 26 year old male. Refer to note in patient chart for documentation of history and physical. Last Colonoscopy: none. The patient's first colonoscopy is today. Complications: No immediate complications. Procedure: Pre-Anesthesia Assessment: - Prior to the procedure, a History and Physical was performed, and patient medications and allergies were reviewed. The patient is competent. The risks and benefits of the procedure and the sedation options and risks were discussed with the patient. All questions were answered and informed consent was obtained. Patient identification and proposed procedure were verified by the physician in the pre-procedure area. Mental Status Examination: alert and oriented. Airway Examination: normal oropharyngeal airway and neck mobility. Respiratory Examination: clear to auscultation. CV Examination: normal. Prophylactic Antibiotics: The patient does not require prophylactic antibiotics. Prior Anticoagulants: The patient has taken no previous anticoagulant or antiplatelet agents. ASA Grade Assessment: II - A patient with mild systemic disease. After reviewing the risks and benefits, the patient was deemed in satisfactory condition to undergo the procedure. The anesthesia plan was to use moderate sedation / analgesia (conscious sedation). Immediately prior to administration of medications, the patient was re-assessed for adequacy to receive sedatives. The heart rate, respiratory rate, oxygen saturations, blood pressure, adequacy of pulmonary ventilation, and response to care were monitored throughout the procedure. The physical status of the patient was re-assessed after the procedure. After I obtained informed consent, the scope was passed under direct vision. Throughout the procedure, the patient's blood pressure, pulse, and oxygen saturations were monitored continuously. The pediatric colonoscope was introduced through the anus and advanced to the terminal ileum. The colonoscopy was performed without difficulty. The patient tolerated the procedure well. The quality of the bowel preparation was good. Moderate Sedation: Moderate (conscious) sedation was administered by the endoscopy nurse and supervised by the endoscopist. The patient's oxygen saturation, heart rate, blood pressure and response to care were monitored. Total physician intraservice time was 15 minutes. Scope In: 1:52:16 PM Scope Withdrawal Time 0 hours 9 minutes 38 seconds Scope Out: 2:10:01 PM Total Procedure Duration Time 0 hours 17 minutes 45 seconds Findings: The perianal and digital rectal examinations were normal. The colon (entire examined portion) appeared normal. Biopsies for histology were taken with a cold forceps from the ascending colon, right colon, left colon, transverse colon, right transverse colon, left transverse colon, descending colon, sigmoid colon, rectum and rectosigmoid colon for evaluation of microscopic colitis. Verification of patient identification for the specimen was done by the physician. Estimated blood loss was minimal. A scattered area of the terminal ileum was congested. Biopsies were taken with a cold forceps for histology. Verification of patient identification for the specimen was done. Estimated blood loss was minimal. Impression: - The entire examined colon is normal. Biopsied. - Congested mucosa in the terminal ileum. Biopsied. Recommendation: - Discharge patient to home. - Resume previous diet. - Continue present medications. - Await pathology results. - Repeat colonoscopy is recommended for surveillance. The colonoscopy date will be determined after pathology results from today's exam become available for review. Procedure Code(s): --- Professional --- 82932, Colonoscopy, flexible; with biopsy, single or multiple 14229, 59, Moderate sedation services provided by the same physician or other qualified health care coordination manager performing the diagnostic or therapeutic service that the sedation supports, requiring the presence of an independent trained observer to assist in the monitoring of the patient's level of consciousness and physiological status; initial 15 minutes of intraservice time, patient age 5 years or older CPT copyright 2017 [employer]. All rights reserved. The codes documented in this report are preliminary and upon tar roofer review may be revised to meet current compliance requirements. Dov Mendoza DO 10/09/2021 2:17:00 PM This report has been signed electronically. Number of Addenda: 1 Note Initiated On: 10/09/2021 1:40 PM Addendum Number: 1 Addendum Date: 05/08/2022 6:43:08 AM MAC was used as sedation for this procedure. Dov Mendoza DO 05/08/2022 6:43:12 AM This report has been signed electronically.
--- NOTE | 2021-10-09 14:18 | OP.CCLET_ITS ---
05/08/2022 Olive Vásquez [facility] Re : Colonoscopy procedure for [facility]ctor [facility] This procedure was performed on Saturday, October 09, 2021. My impressions and recommendations are as follows: Impressions : - The entire examined colon is normal. Biopsied. - Congested mucosa in the terminal ileum. Biopsied. Recommendations : - Discharge patient to home. - Resume previous diet. - Continue present medications. - Await pathology results. - Repeat colonoscopy is recommended for surveillance. The colonoscopy date will be determined after pathology results from today's exam become available for review. My findings are described in the full procedure note, which is enclosed. If I can be of further assistance, please feel free to contact me at . Sincerely, Dov Mendoza, 10/09/2021 2:17:00 PM This report has been signed electronically.
== END 2021-10-09 23:59 | disposition home or self-care (01) ==
LOC: EN 11:48 → AC 11:53
PROVIDERS: Visit Provider Internal Medicine Gastroenterology
PROC: 0DJD8ZZ Inspection of Lower Intestinal Tract, Via Natural or Artificial Opening Endoscopic (ICD-10-PCS; CPT 45378; principal; 2021-10-09 13:10)
DX: K51.90 Ulcerative colitis, unspecified, without complications (principal); F12.188 Cannabis abuse with other cannabis-induced disorder; F17.200 Nicotine dependence, unspecified, uncomplicated; F41.9 Anxiety disorder, unspecified; J45.909 Unspecified asthma, uncomplicated; F32.A Depression, unspecified; K21.9 Gastro-esophageal reflux disease without esophagitis; G25.81 Restless legs syndrome; Z79.899 Other long term (current) drug therapy
CPT/HCPCS: 45380; 88305; J7120

== ENCOUNTER 2022-10-14 12:57 | Emergency (ER) | payer MEDICAID, SELFPAY ==
[2022-10-14 12:57] VITALS: BP 179/121; PULSE 105; RESP 16; TEMP 36.3; O2SAT 100; BMI 35.3
--- NOTE | 2022-10-14 13:13 | US_ITS ---
STUDY: ABDOMINAL ULTRASOUND - RIGHT UPPER QUADRANT REASON FOR VISIT: Male, 27 years old . Sharp abdominal pain. TECHNIQUE: Ultrasound evaluation of the right upper quadrant was performed with real-time and static mckinney-scale imaging. TECHNICAL QUALITY: Adequate. COMPARISON: None. FINDINGS: Liver: The liver measures 16.6 cm. There is normal echogenicity of the liver. The bile ducts are within normal limits. There is hepatic color flow. The direction of portal flow is hepatopetal. There is no demonstrated mass lesion. Gallbladder: Normal distended gallbladder. The gallbladder wall measures 1.2 mm. There is a positive sonographic Owen''s sign. There is no pericholecystic fluid. There are no gallstones. Common Bile Duct (C.B.D.): The common bile duct measures 3.0 mm. Pancreas: Normal size of the head, body and tail of the pancreas. There is increased echogenicity of the pancreas. There is no demonstrated pancreatic mass or cyst. Right Kidney: Normal size of the right kidney. The right kidney measures 11.1 cm x 6.6 x 6.6 cm. Normal renal cortex. The right cortex measures 1.1 cm. There is no demonstrated renal mass or cyst. There is no right hydronephrosis. US/Gallbladder IMPRESSION: Positive sonographic Owen''s sign. No evidence of gallstones. Electronically Signed: Albert Del Real MD at 14:37 EST ,
--- NOTE | 2022-10-14 13:14 | EDS_ITS ---
HPI HPI - GI History of Present Illness Chief Complaint: Abd Pain Narrative Narrative: 27-year-old male states he has longstanding problems with abdominal pain. He is a patient of Dr. Fonseca but has not seen him in quite some time because he lost his insurance. He complains that this morning he ate a bowl of cereal and now has epigastric to right upper quadrant pain. He has nausea and vomiting and has vomited a few times. He states that when he had endoscopy performed he had ulcers previously. He used to take ondansetron and pantoprazole, but no longer takes ondansetron because he is out. He presents because of the nausea, vomiting, and upper abdominal pain, mainly epigastric to right upper quadrant. PFSH PFSH Medical History Alcohol use Anxiety Asthma Cannabis hyperemesis syndrome concurrent with and due to cannabis abuse Colon wall thickening Depression Gastric reflux History of ulceration Injury of back Injury of head and neck Marijuana use Nausea and vomiting Restless legs Vapes nicotine containing substance Home Medications buspirone 10 mg tablet 10 mg PO BID 09/21/21 [History Last Taken Unknown] hydroxyzine pamoate 50 mg capsule (Vistaril) 50 mg PO QHS 10/04/21 [History Last Taken Unknown] dextroamphetamine-amphetamine 5 mg tablet (Adderall) 5 mg PO 1500 10/05/21 [History Last Taken Unknown] dextroamphetamine-amphetamine ER 25 mg 24hr capsule,extend release (Adderall XR) 25 mg PO DAILY 10/05/21 [History Last Taken Unknown] lidocaine HCl 2 % mucosal solution 15 ml PO DAILY PRN pain #100 mL 10/26/21 [Rx Last Taken Unknown] dicyclomine 20 mg tablet 40 mg PO BID #360 tabs 12/11/21 [Rx Last Taken Unknown] ondansetron 8 mg disintegrating tablet 8 mg PO Q8H PRN nausea and vomiting #90 tabs 12/11/21 [Rx Last Taken Unknown] pantoprazole 40 mg tablet,delayed release 40 mg PO DAILY #90 tabs 12/11/21 [Rx Last Taken Unknown] dicyclomine 20 mg tablet 20 mg PO TID PRN abdominal pain #20 tabs 10/14/22 [Rx Last Taken Unknown] ondansetron 4 mg disintegrating tablet 4 mg PO Q6H PRN nausea and vomiting #20 tabs 10/14/22 [Rx Last Taken Unknown] Allergy/AdvReac Type Severity Reaction Status Date / Time No Known Allergies Allergy Verified 10/14/22 12:59 Surgical History History of esophagogastroduodenoscopy (EGD) History of shoulder surgery Hx of colonoscopy with polypectomy Social History Smoking Status: Current every day smoker tobacco type: e-cigarettes ROS ROS ED ROS Narrative Constitutional: No fever, no chills. HEENT: No sore throat. No neck pain. No loss of vision. No rhinorrhea. Cardiovascular: No chest pain. No palpitations. No pedal edema. Respiratory: No cough, no shortness of breath. Abdominal: Positive epigastric to right upper quadrant abdominal pain, positive nausea and vomiting. Pain in right upper quadrant radiates to back. Genitourinary: No dysuria. No hematuria. Musculoskeletal: No myalgias. No arthralgias. Neurologic: No headaches. No dizziness. No lightheadedness. Skin: No rash. No change in color. Psychiatric: No depression. No anxiety. EXAM Physical Exam Narrative Exam Narrative: Afebrile. Vital signs noted. HEENT: Normocephalic. Atraumatic. PERRL, EOMI. Neck soft and supple. No point tenderness or step off. Cardiovascular: Regular rate and rhythm. No murmurs, rubs, or gallops smith reciated. Respiratory: No tachypnea. Lungs clear to auscultation bilaterally. Gastrointestinal: Abdomen soft, mild tenderness to palpation right upper quadrant and epigastrium, negative Owen sign with normoactive bowel sounds. No rebound or guarding. Neurological: Awake. Alert. Nonfocal, nonlateralizing. Skin: No rash. Normal color. No pallor. Musculoskeletal: No pedal edema. Full range of motion extremities. Const Vital Signs: 10/14/22 12:57 Temperature 97.4 F L Temperature Source Temporal Pulse Rate 105 H Respiratory Rate 16 Blood Pressure 179/121 H Blood Pressure Mean 140 Pulse Ox 100 Oxygen Delivery Method Room Air MDM MDM MDM Narrative Medical decision making narrative: I reviewed the patient's prior ED records. Last year, he had the same symptoms, but mainly in the epigastrium and left lower quadrant. CT was negative at that time. I am concerned with pancreatitis versus gallbladder pathology/cholecystitis. Patient is intermittently tachycardic here. He will be given morphine and ondansetron. I will obtain a CBC, CMP, and lipase to look for signs of choledocholithiasis. Ultrasound imaging will be obtained. I do not feel CT imaging is indicated because he is not having pain in the lower quadrants, and it seems to be mainly epigastrium to right upper quadrant. In review of his laboratory work, he does have elevated white count of 16.4 which I think may be demargination from his vomiting. Hemoglobin normal at 15.4 with hematocrit 46.8. Normal platelet count of 370. CMP was reviewed and he has a glucose of 121 but a normal anion gap of 6. LFTs are normal with an AST of 22 and an ALT of 47, alk phos normal at 74. Lipase normal at 89. Ultrasound of the gallbladder report was reviewed and he does have a sonographic Owen sign, but common bile duct is nondilated. Gallbladder wall not thickened, no pericholecystic fluid, no gallstones. He states he pulled a muscle in his back when he was vomiting so he was administered Toradol. I discussed the patient with Dr. Enriquez with general surgery. He will follow-up as an outpatient. He was told he may need a HIDA scan for his right upper quadrant abdominal pain. Patient requested a GI cocktail and Zofran prior to discharge. He also requested a note for work. He did not want narcotic pain medications, stating he preferred not to have them. Hence, he will be given Bentyl and Zofran prescriptions. At this point in time, I do feel he can be discharged safely home with follow-up to general surgery as needed for his epigastric to right upper quadrant pain. Of note, he does have history of cannabis hyperemesis syndrome. I feel he can be discharged safely home. Return instructions were reviewed. Disposition is discharged in stable condition. History & Record Review Discussion w/independent historian: Patient Additional record(s) reviewed:: Prior ED visit and Prior labs Lab Data Attestation: I reviewed the patient's lab results. Labs: Laboratory Results - last 24 hr 10/14/22 10/14/22 10/14/22 13:03 13:03 15:15 WBC 16.4 H RBC 5.55 Hgb 15.4 Hct 46.8 MCV 84.3 MCH 27.7 MCHC 32.9 RDW Std Deviation 40.8 RDW Coeff of Misty 13.2 Plt Count 370 MPV 10.5 Immature Gran % (Auto) 0.500 Neut % (Auto) 86.3 H Lymph % (Auto) 9.4 L [place] % (Auto) 3.1 Eos % (Auto) 0.2 Baso % (Auto) 0.5 Absolute Neuts (auto) 14.2 H Absolute Lymphs (auto) 1.54 Nucleated RBC % 0 Sodium 138 Potassium 3.7 Chloride 102 Carbon Dioxide 30.0 Anion Gap 6 BUN 13 Creatinine 1.15 Estim Creat Clear Calc 98.74 Est GFR (MDRD) Af Amer 97 Est GFR (MDRD) Non-Af 80 BUN/Creatinine Ratio 11.3 Glucose 121 H Calcium 10.2 H Total Bilirubin 0.60 AST 22 ALT 47 Alkaline Phosphatase 74 Total Protein 8.3 H Albumin 4.5 Globulin 3.8 Albumin/Globulin Ratio 1.2 Lipase 89 Urine Color Yellow Urine Clarity Sl. Cloudy Urine pH 8.0 Ur Specific [place] 1.015 Urine Protein Negative Urine Glucose (UA) Normal Urine Ketones Negative Urine Occult Blood Negative Urine Nitrite Negative Urine Bilirubin Negative Urine Urobilinogen Normal Ur Leukocyte Esterase Negative Urine RBC 0 SEEN Urine WBC 0 SEEN Ur Squamous Epith Cells 0-5 SEEN Amorphous Sediment 2+ Urine Bacteria 0 SEEN Urine Mucus 0 SEEN Radiography Diagnostic Testing: Clinical Impression(s) from Imaging Studies Gallbladder Ultrasound 10/14/22 13:13 IMPRESSION: Positive sonographic Owen''s sign. No evidence of gallstones. Electronically Signed: Albert Del Real MD at 14:37 EST , Discharge Plan Triage Chief Complaint: Abd Pain ED Provider: Arnulfo Coon Dx/Rx/DC Orders Clinical Impression: Nausea and vomiting, Abdominal pain, Abdominal pain, RUQ Instructions: ED Pain, Acute, Uncertain Cause, ED Epigastric Pain Uncertain Cause, ED Abdominal Pain Unkn Cause Male... Prescriptions: New ondansetron 4 mg tablet,disintegrating 4 mg PO Q6H PRN (Reason: nausea and vomiting) Qty: 20 0RF dicyclomine 20 mg tablet 20 mg PO TID PRN (Reason: abdominal pain) Qty: 20 0RF No Action hydroxyzine pamoate [Vistaril] 50 mg capsule 50 mg PO QHS lidocaine HCl 2 % solution 15 ml PO DAILY PRN (Reason: pain) Qty: 100 2RF ondansetron 8 mg tablet,disintegrating 8 mg PO Q8H PRN (Reason: nausea and vomiting) Qty: 90 2RF pantoprazole 40 mg tablet,delayed release (DR/EC) 40 mg PO DAILY Qty: 90 3RF dicyclomine 20 mg tablet 40 mg PO BID Qty: 360 2RF buspirone 10 mg tablet 10 mg PO BID Label Comments: TAKE 1 TABLET BY MOUTH TWICE DAILY dextroamphetamine-amphetamine [Adderall] 5 mg Tablet 5 mg PO 1500 dextroamphetamine-amphetamine [Adderall XR] 25 mg Capsule,Extended Release 24hr 25 mg PO DAILY [facility]: Sundar Enri[facility] MD [Med Staff - Active Staff] - As soon as possible [facility] V[facility]quez [Primary Care Provider] - Disposition Disposition: Home, Self Care Discharge Date/Time: 10/14/22 15:46
[2022-10-14 13:32] LABS: Absolute Lymphocyte Count 1.54 X10^3/uL (0.83-4.51); Absolute Neutrophil Count 14.2 X10^3/uL (2.0-7.7); Basophil# 0.08 X10^3/uL; Basophil% 0.5 % (0-1); Eosinophil# 0.03 X10^3/uL; Eosinophils% 0.2 % (0-5); Hematocrit 46.8 % (40-54); Hemoglobin 15.4 g/dL (13.0-16.5); Lymphocyte # 1.54 X10^3/ul (0.83-4.51); Lymphocyte % 9.4 % (19-41); Mean Corp Hgb Conc 32.9 g/dL (32-36); Mean Corpuscular Hgb 27.7 pg (27.0-32.0); Mean Corpuscular Volume 84.3 fL (80-94); Mean Platelet Vol. 10.5 fl (6.2-12.0); Monocyte# 0.51 X10^3/uL; Monocyte% 3.1 % (0-10); NRBC Flagged by Analyzer 0 % (0-5); Neutrophil # 14.17 X10^3/uL (2.7-7.7); Neutrophil % 86.3 % (47-70); Platelet Count 370 K/mm3 (150-450); RBC Distribution Width CV 13.2 % (11.6-14.6); RBC Distribution Width SD 40.8 fl (35.1-43.9); Red Blood Count 5.55 M/mm3 (4.6-6.2); White Blood Count 16.4 K/mm3 (4.4-11.0)
[2022-10-14] MEDS: 0.9% Normal Saline 1,000 ML 1000 ML IV (13:34)
[2022-10-14] MEDS: Ondansetron 4 MG/2 ML Vial IV ×2 (13:34→15:31)
[2022-10-14] MEDS: Morphine 4 MG/ML Syringe IV (13:34)
[2022-10-14 13:48] LABS: ALB/GLOB Ratio 1.2 RATIO (0.9-2.4); AST(SGOT) 22 U/L (15-37); Alanine Aminotransfer ALT/SGPT 47 U/L (16-61); Albumin, Serum 4.5 g/dL (3.2-5.0); Alkaline Phosphatase 74 U/L (45-117); Anion Gap 6 (5-15); BUN 13 mg/dL (7-18); BUN/Creat Ratio 11.3 RATIO (10-20); Calcium,Total 10.2 mg/dL (8.5-10.1); Chloride 102 mmol/L (98-107); Creatinine, Serum 1.15 mg/dL (0.70-1.30); EST Glomerular Filtration Rate 80 mL/min (>60); Est Glom Filt Rate - Afr Amer 97 mL/min (>60); Estimated Creatinine Clearance 98.74 ml/min; Globulin 3.8 g/dL (2.2-4.2); Glucose 121 mg/dL (74-106); Lipase 89 U/L (73-393); Potassium 3.7 mmol/L (3.5-5.1); Protein, Total 8.3 g/dL (6.4-8.2); Sodium Level 138 mmol/L (136-145)
[2022-10-14] MEDS: Ketorolac 30 MG/ML Syringe IV (15:12)
[2022-10-14 15:25] LABS: Bacteria 0 SEEN /hpf (None Seen); Mucous, Urine 0 SEEN /hpf (<or=2+); Red Blood Cells-Urine 0 SEEN /hpf (0-5); White Blood Cells 0 SEEN /hpf (0-5)
[2022-10-14 15:27] LABS: Color, Urine Yellow (Yellow); Glucose, Dipstick Normal (Normal); Ketone-Dipstick Negative (Negative); Leukocyte Esterase-Dipstick Negative /ul (Negative); Nitrite-Dipstick Negative (Negative); Occult Blood-Urine Negative /ul (Negative); Protein-Dipstick Negative (Negative); Specific Gravity, Urine 1.015 (1.002-1.030); Urine Bilirubin Dipstick Negative (Negative); Urine Clarity Sl. Cloudy (Clear); Urine Urobilinogen Normal (Normal)
[2022-10-14] MEDS: Mag Hydrox/Al Hydrox/Simeth 30 ML UDC PO (15:30)
[2022-10-14 15:36] LABS: Amorphous Sediment 2+; Squamous Epithelial Cells - UA 0-5 SEEN /hpf (0-5)
== END 2022-10-14 15:46 | disposition home or self-care (01) ==
PROVIDERS: Emergency Provider Emergency Medicine; Visit Provider Emergency Medicine
DX: R10.11 Right upper quadrant pain (principal); R10.13 Epigastric pain; R11.2 Nausea with vomiting, unspecified; F17.290 Nicotine dependence, other tobacco product, uncomplicated; J45.909 Unspecified asthma, uncomplicated; Z87.19 Personal history of other diseases of the digestive system
CPT/HCPCS: 76705; 80053; 81001; 83690; 85025; 96361; 96374; 96375; 96376; 99283; J7030; A4216; J2405

== ENCOUNTER 2022-11-07 10:28 | Emergency (ER) | payer MEDICAID, SELFPAY ==
[2022-11-07 10:29] VITALS: BP 121/87; PULSE 148; RESP 20; TEMP 36.4; O2SAT 148; BMI 34.4
--- NOTE | 2022-11-07 10:45 | ED.VIS.BACK ---
HPI History of Present Illness Chief Complaint: Back Informant: patient Onset/Context/Timing Onset: Today and Yesterday Context: Gradual Onset Injury: - (Patient has chronic abdominal pain. Had nausea and vomiting and believes he pulled muscles in his back.) Timing: Continuous Quality: Aching Location: Thoracic and Lumbar Current Severity: Mild Maximum Severity: Mild Worsened by: improves with Movement and Bending Relieved by: Remaining Still Associated Symptoms Associated Symptoms: Negative for Numbness, Tingling, Radiation to Right Leg, Radiation to Left Leg, Abdominal Pain, Dysuria, Unable to Ambulate, Unable to Transfer, Urinary Retention, Constipation or Fecal Incontinence Narrative Narrative: 27-year-old male has chronic abdominal pain from colitis and ulcers. Sees Dr. Mendoza for that. States last couple days he had some nausea and vomiting ADC pulled muscles in his back he is complaining of pain on his right lower thoracic spine and his lower back. No weakness or numbness. No fever. No hematemesis or melena. Prior similar symptoms: Yes Recent Illness/Hospitalization: No PFSH PFSH Medical History Alcohol use Anxiety Asthma Cannabis hyperemesis syndrome concurrent with and due to cannabis abuse Colon wall thickening Depression Gastric reflux History of ulceration Injury of back Injury of head and neck Marijuana use Nausea and vomiting Restless legs Vapes nicotine containing substance Home Medications buspirone 10 mg tablet 10 mg PO BID 09/21/21 [History Last Taken Unknown] hydroxyzine pamoate 50 mg capsule (Vistaril) 50 mg PO QHS 10/04/21 [History Last Taken Unknown] dextroamphetamine-amphetamine 5 mg tablet (Adderall) 5 mg PO 1500 10/05/21 [History Last Taken Unknown] dextroamphetamine-amphetamine ER 25 mg 24hr capsule,extend release (Adderall XR) 25 mg PO DAILY 10/05/21 [History Last Taken Unknown] lidocaine HCl 2 % mucosal solution 15 ml PO DAILY PRN pain #100 mL 10/26/21 [Rx Last Taken Unknown] dicyclomine 20 mg tablet 40 mg PO BID #360 tabs 12/11/21 [Rx Last Taken Unknown] ondansetron 8 mg disintegrating tablet 8 mg PO Q8H PRN nausea and vomiting #90 tabs 12/11/21 [Rx Last Taken Unknown] pantoprazole 40 mg tablet,delayed release 40 mg PO DAILY #90 tabs 12/11/21 [Rx Last Taken Unknown] dicyclomine 20 mg tablet 20 mg PO TID PRN abdominal pain #20 tabs 10/14/22 [Rx Last Taken Unknown] ondansetron 4 mg disintegrating tablet 4 mg PO Q6H PRN nausea and vomiting #20 tabs 10/14/22 [Rx Last Taken Unknown] metaxalone 800 mg tablet 800 mg PO TID 7 days #21 tabs 11/07/22 [Rx Last Taken Unknown] Allergy/AdvReac Type Severity Reaction Status Date / Time No Known Allergies Allergy Verified 11/07/22 10:46 Surgical History History of esophagogastroduodenoscopy (EGD) History of shoulder surgery Hx of colonoscopy with polypectomy Social History Smoking Status: Current every day smoker tobacco type: e-cigarettes ROS ROS ED ROS Narrative Back pain. Nausea and vomiting. Review of Systems ROS Unobtainable: Denies due to encephalopathy Constitutional Constitutional ED: Denies chills or fever(s) Eyes Eyes: Denies blurry vision ENT ENT ED: Denies ear pain Cardiovascular Cardiovascular: Denies chest pain Respiratory/Chest Respiratory/Chest: Denies dyspnea or dyspnea on exertion Gastrointestinal Gastrointestinal: Reports abdominal pain, nausea and vomiting Genitourinary Genitourinary ED: Denies dysuria or hematuria Musculoskeletal Musculoskeletal: Reports back pain; Denies arthralgias or neck pain Integumentary Denies abscess Neurologic Neurologic: Denies headache(s) Psychiatric Psychiatric: Denies anxiety or depression Endocrine Endocrinology: Denies cold intolerance or heat intolerance Hematologic/Lymphatic Hematologic/Lymphatic: Denies easy bleeding or easy bruising Allergic/Immunologic Allergic/Immunologic ED: Denies mouth swelling or tongue swelling EXAM Physical Exam Narrative Exam Narrative: Well-appearing 27-year-old male. Vital signs are stable. He is afebrile. He does not look septic or toxic. Initial blood pressure 121/87. H EENT exam unremarkable. Neck nontender. Lungs clear to auscultation bilaterally. Heart regular rhythm rate about 100. Abdomen soft, nontender, nondistended normal bowel sounds no peritoneal signs. Chest wall is nontender except his left lower rib cage. There is no signs of trauma. Moving all 4 extremities. Neurovascular intact. Nontender no edema. Normal muscle strength and sensation. Back is reproducible musculoskeletal pain consistent with a muscle strain on his lower thoracic spine on the right. Parathoracic. And also along his iliac crest. Neurologically is awake and alert with normal motor strength and sensation. Const Vital Signs: 11/07/22 10:29 Temperature 97.5 F L Temperature Source Temporal Pulse Rate 148 H Respiratory Rate 20 H Blood Pressure 121/87 H Blood Pressure Mean 98 Pulse Ox 148 Oxygen Delivery Method Room Air Positive well nourished and well developed; Negative for obese, cachectic, contractures or unkempt General Appearance ED: well developed; Negative for unkempt, cachectic, contractures or pallor Nutritional Appearance: Negative for cachectic or obese HEENT Reports moist mucous membranes; Denies dry mucous membranes Negative for trauma or tenderness Mouth ED: No dry mucous membranes Mouth: No dry mucous membranes Eyes PERRL and EOMs intact bilaterally General Eye ED: Negative for pale conjunctiva or scleral icterus Neck no lymphadenopathy, supple and no JVD General: Negative for tenderness Thyroid: Negative for other Chest Wall Chest: Negative for other Resp normal respiratory effort and clear to auscultation bilaterally Resp Narrative: Left lower rib cage chest wall tenderness consistent with a myofascial strain. No bony deformity. No crepitus. Auscultation: Negative for rales, rhonchi or wheezes Cardio regular rate, regular rhythm, S1 normal heart sound, S2 normal heart sound and no murmurs Cardio Narrative: Rates around 100. I think the triage vital signs are tachycardia I will have them recheck that. GI normal to inspection, nondistended, normoactive bowel sounds, soft to palpation, non-tender, non-distended and no masses Inspection: Negative for abdominal distention Auscultation: Negative for hyperactive bowel sounds Palpation: Negative for tender or guarding Back/Spine normal to inspection and no thoracic nor lumbar tenderness Back/Spine Narrative: Parathoracic soft tissue tenderness on the right and also along the iliac crest consistent with a myofascial strain. No bruising or signs of trauma. No spine tenderness. No redness or warmth. Cervical Spine: Negative for cervical spine tenderness Thoracic Spine / Upper Back: paraspinal muscle tenderness Lumbar Spine / Lower Back: straight leg raise negative bilaterally Extremity normal to inspection and no clubbing, cyanosis or edema General Extremety ED: Negative for edema or tenderness General Extremity: Negative for edema Neuro oriented x3 and no sensory deficits noted Sensorium / Orientation: alert; Negative for confused, lethargic or stuporous Motor Exam: strength 5/5 throughout; Negative for strength abnormal Psych mental status grossly normal Appearance: Negative for unkempt Attitude: No agitated Mood & Affect: Negative for depressed, sad or tearful Skin no rashes or lesions noted and no wounds General Skin Exam: Negative for jaundice or pallor Lesions: No lesion noted Rashes: No rashes noted Trauma: Negative for abrasion or puncture Wounds: Negative for wounds noted Image ED - Body Diagram Man: 1. Right lower parathoracic soft tissue tenderness 2. Lower paralumbar soft tissue tenderness. MDM MDM MDM Narrative Medical decision making narrative: 19-year-old male has chronic abdominal pain with nausea vomiting. Its not new. Pulled his back with vomiting the other day. His exam is consistent with parathoracic and paralumbar soft tissue strain and spasm. Been written for prescription of Skelaxin. He does not use NSAIDs due to his GI issues. He does not need any imaging or blood work. Other than soft tissue tenderness exam is benign. History & Record Review Discussion w/independent historian: Patient Discharge Plan Triage Chief Complaint: Back ED Provider: Kash Frederick Dx/Rx/DC Orders Clinical Impression: Muscle strain, Back spasm Instructions: ED Back Spasm, No Trauma Prescriptions: New metaxalone 800 mg tablet 800 mg PO TID 7 Days Qty: 21 0RF No Action hydroxyzine pamoate [Vistaril] 50 mg capsule 50 mg PO QHS lidocaine HCl 2 % solution 15 ml PO DAILY PRN (Reason: pain) Qty: 100 2RF ondansetron 8 mg tablet,disintegrating 8 mg PO Q8H PRN (Reason: nausea and vomiting) Qty: 90 2RF pantoprazole 40 mg tablet,delayed release (DR/EC) 40 mg PO DAILY Qty: 90 3RF dicyclomine 20 mg tablet 40 mg PO BID Qty: 360 2RF buspirone 10 mg tablet 10 mg PO BID Label Comments: TAKE 1 TABLET BY MOUTH TWICE DAILY dextroamphetamine-amphetamine [Adderall] 5 mg Tablet 5 mg PO 1500 dextroamphetamine-amphetamine [Adderall XR] 25 mg Capsule,Extended Release 24hr 25 mg PO DAILY ondansetron 4 mg tablet,disintegrating 4 mg PO Q6H PRN (Reason: nausea and vomiting) Qty: 20 0RF dicyclomine 20 mg tablet 20 mg PO TID PRN (Reason: abdominal pain) Qty: 20 0RF Primary Care Provider: [facility] Olive Nguyen Referrals: [facility] Olive Nguyen [Primary Care Provider] - 1 Week if not improving Activity Restrictions/Additional Instructions: Hot shower, warm bath and massage to help relax the muscles in your back. The Muscle relaxant Skelaxin 1 pill 3 times a day for a week. Follow-up with your doctor if not improving. Disposition Disposition: Home, Self Care
== END 2022-11-07 11:30 | disposition home or self-care (01) ==
PROVIDERS: Emergency Provider Emergency Medicine; Visit Provider Emergency Medicine
DX: S39.012A Strain of muscle, fascia and tendon of lower back, initial encounter (principal); R10.9 Unspecified abdominal pain; F17.290 Nicotine dependence, other tobacco product, uncomplicated; R11.2 Nausea with vomiting, unspecified; G89.29 Other chronic pain; X58.XXXA Exposure to other specified factors, initial encounter
CPT/HCPCS: 99282

== ENCOUNTER 2022-11-20 20:38 | Emergency (ER) | payer MEDICAID, SELFPAY ==
[2022-11-20 20:39] VITALS: BP 149/99; PULSE 120; RESP 16; TEMP 36.7; O2SAT 98; BMI 35.7
--- NOTE | 2022-11-20 21:08 | RAD_ITS ---
INDICATION: Injury/Pain EXAMINATION/TECHNIQUE: X-RAY - LEFT XR Shoulder Min 2 Views 5 VIEWS COMPARISON: None. FINDINGS: SOFT TISSUES: No soft tissue swelling or gas. No radiopaque foreign body. BONES/JOINTS: No acute fracture or subluxation. Glenohumeral, acromioclavicular, coracoclavicular relationships are maintained. No sclerotic or destructive changes observed. RAD/Shoulder min 2 Views IMPRESSION: Negative. Electronically Signed: Johnny Martinez MD at 21:26 EDT ,
--- NOTE | 2022-11-20 22:16 | EDS_ITS ---
HPI History of Present Illness HPI Narrative: Patient presents with left shoulder pain that began yesterday after doing yard work. Patient states it came on rather suddenly. Patient describes as aching and stabbing. Patient states it has been constant since yesterday. Patient states it is worse with movement. Patient states nothing seems to help with the pain. Patient denies any paresthesias or weakness. Patient denies any specific trauma or injury. Chief Complaint: Upper Extremity Injury Informant: patient Onset/Context/Timing Onset: Yesterday Context: Sudden Onset Timing: Continuous Quality of Pain: Aching and Stabbing Location: Left shoulder Worsened by: Movement Relieved by: Nothing Associated Symptoms Associated Symptoms: Negative for Parasthesia, Weakness or Loss of Funtion PFSH PFSH Medical History Alcohol use Anxiety Asthma Cannabis hyperemesis syndrome concurrent with and due to cannabis abuse Colon wall thickening Depression Gastric reflux History of ulceration Injury of back Injury of head and neck Marijuana use Nausea and vomiting Restless legs Vapes nicotine containing substance Home Medications buspirone 10 mg tablet 10 mg PO BID 09/21/21 [History Last Taken Unknown] hydroxyzine pamoate 50 mg capsule (Vistaril) 50 mg PO QHS 10/04/21 [History Last Taken Unknown] dextroamphetamine-amphetamine 5 mg tablet (Adderall) 5 mg PO 1500 10/05/21 [History Last Taken Unknown] dextroamphetamine-amphetamine ER 25 mg 24hr capsule,extend release (Adderall XR) 25 mg PO DAILY 10/05/21 [History Last Taken Unknown] lidocaine HCl 2 % mucosal solution 15 ml PO DAILY PRN pain #100 mL 10/26/21 [Rx Last Taken Unknown] dicyclomine 20 mg tablet 40 mg PO BID #360 tabs 12/11/21 [Rx Last Taken Unknown] ondansetron 8 mg disintegrating tablet 8 mg PO Q8H PRN nausea and vomiting #90 tabs 12/11/21 [Rx Last Taken Unknown] pantoprazole 40 mg tablet,delayed release 40 mg PO DAILY #90 tabs 12/11/21 [Rx Last Taken Unknown] dicyclomine 20 mg tablet 20 mg PO TID PRN abdominal pain #20 tabs 10/14/22 [Rx Last Taken Unknown] ondansetron 4 mg disintegrating tablet 4 mg PO Q6H PRN nausea and vomiting #20 tabs 10/14/22 [Rx Last Taken Unknown] metaxalone 800 mg tablet 800 mg PO TID 7 days #21 tabs 11/07/22 [Rx Last Taken Unknown] Allergy/AdvReac Type Severity Reaction Status Date / Time No Known Allergies Allergy Verified 11/20/22 20:42 Surgical History History of esophagogastroduodenoscopy (EGD) History of shoulder surgery Hx of colonoscopy with polypectomy Social History Smoking Status: Former smoker ROS ROS ED Constitutional Constitutional ED: Denies chills or fever(s) Eyes Eyes: Denies blurry vision or change in vision ENT ENT ED: Denies rhinorrhea or sore throat Cardiovascular Cardiovascular: Denies chest pain or palpitations Respiratory/Chest Respiratory/Chest: Denies cough or dyspnea Gastrointestinal Gastrointestinal: Denies nausea or vomiting Genitourinary Genitourinary ED: Denies dysuria or hematuria Musculoskeletal Musculoskeletal: Denies back pain or neck pain Integumentary Denies abscess or rash Neurologic Neurologic: Denies headache(s) or weakness Allergic/Immunologic Allergic/Immunologic ED: Denies mouth swelling or urticaria EXAM Physical Exam Const Vital Signs: 11/20/22 20:39 Temperature 98.0 F Temperature Source Temporal Pulse Rate 120 H Respiratory Rate 16 Blood Pressure 149/99 H Blood Pressure Mean 115 Pulse Ox 98 Oxygen Delivery Method Room Air Positive well nourished and well developed General Appearance ED: well developed and NAD HEENT Reports moist mucous membranes Neck full ROM and supple Extremity Extremity Narrative: There is tenderness over the left shoulder. There is no edema or ecchymosis. There is no bony crepitance or step-off. Range of motion was limited in all motion to the left shoulder secondary to pain. There is no obvious deformity noted. Radial pulses are equal bilaterally. Sensation was intact to light touch in all digits. Capillary refill was less than 2 seconds in all digits. Neuro oriented x3, CN's II-XII intact bilaterally, moves all extremities, no focal motor deficits and no sensory deficits noted Sensorium / Orientation: alert Motor Exam: strength 5/5 throughout Psych mental status grossly normal MDM MDM MDM Narrative Medical decision making narrative: Differential diagnosis includes AC separation, degenerative arthritis, tendinitis, labral tear, and soft tissue injury. X-rays of the left shoulder will be obtained to assess for degenerative changes. Radiography Diagnostic Testing: Clinical Impression(s) from Imaging Studies Shoulder X-Ray 11/20/22 21:08 IMPRESSION: Negative. Electronically Signed: Johnny Martinez MD at 21:26 EDT Reading Location ID and State: [facility] / [place] Tel , Service support , X-rays of the left shoulder were obtained. There are 5 views. On my independent interpretation, there is no acute fracture or dislocation. There is no evidence of AC separation. There are no degenerative changes noted. Radiologist also interpreted the x-rays and agrees. Treatment and Re-Evaluation Narrative: Patient was advised of his findings. Patient was ordered a dose of Naprosyn here. Patient was instructed to use ice to the area. Patient was given a prescription for Naprosyn. Patient was given a referral for orthopedics. Patient was also instructed to follow-up with his primary care physician in 5 to 7 days. Patient understood and was agreeable with the plan. All questions were answered. Upon discharge, patient told the nurse that he has a history of stomach ulcers and cannot take NSAIDs. Because of this, patient was instructed to take Tylenol as needed for pain. The prescription for Naprosyn will be canceled. Patient understands and is agreeable with the plan. All questions were answered. Discharge Plan Triage Chief Complaint: Upper Extremity Injury ED Provider: Jack Contreras Dx/Rx/DC Orders Clinical Impression: Strain of left shoulder Instructions: ED Shoulder Pain, Uncertain Cause Prescriptions: No Action hydroxyzine pamoate [Vistaril] 50 mg capsule 50 mg PO QHS lidocaine HCl 2 % solution 15 ml PO DAILY PRN (Reason: pain) Qty: 100 2RF ondansetron 8 mg tablet,disintegrating 8 mg PO Q8H PRN (Reason: nausea and vomiting) Qty: 90 2RF pantoprazole 40 mg tablet,delayed release (DR/EC) 40 mg PO DAILY Qty: 90 3RF dicyclomine 20 mg tablet 40 mg PO BID Qty: 360 2RF buspirone 10 mg tablet 10 mg PO BID Label Comments: TAKE 1 TABLET BY MOUTH TWICE DAILY dextroamphetamine-amphetamine [Adderall] 5 mg Tablet 5 mg PO 1500 dextroamphetamine-amphetamine [Adderall XR] 25 mg Capsule,Extended Release 24hr 25 mg PO DAILY ondansetron 4 mg tablet,disintegrating 4 mg PO Q6H PRN (Reason: nausea and vomiting) Qty: 20 0RF dicyclomine 20 mg tablet 20 mg PO TID PRN (Reason: abdominal pain) Qty: 20 0RF metaxalone 800 mg tablet 800 mg PO TID 7 Days Qty: 21 0RF Referrals: Peewee Cesar DO [Med Staff - Active Staff] - 5-7 Days Disposition Disposition: Home, Self Care Discharge Date/Time: 11/20/22 22:44
== END 2022-11-20 22:44 | disposition home or self-care (01) ==
PROVIDERS: Emergency Provider Emergency Medicine; Visit Provider Emergency Medicine
DX: S46.912A Strain of unspecified muscle, fascia and tendon at shoulder and upper arm level, left arm, initial encounter (principal); Z87.891 Personal history of nicotine dependence; X58.XXXA Exposure to other specified factors, initial encounter
CPT/HCPCS: 73030; 99282

== ENCOUNTER 2023-01-09 08:49 | Day surgery (SDC) | payer MEDICAID, SELFPAY ==
[2023-01-09] VITALS (7 sets, daily range): BP systolic 127–154; BP diastolic 80–111; PULSE 60–91; RESP 16–18; TEMP 36.4–36.8; O2SAT 94–99; BMI 35.1
[2023-01-09] MEDS: Lactated Ringers 1,000 ML 15 ML IV ×2 (09:24→14:05)
[2023-01-09] MEDS: Cefazolin 2 GM in 0.9% Normal Saline 100 ML IV (10:48)
[2023-01-09] MEDS: Epinephrine (1 mg/ml) 1 MG/ML VIAL (11:35)
--- NOTE | 2023-01-09 14:00 | DCINST_ITS ---
Discharge Instructions Follow Up Care Test Results: Test results from this visit will be discussed in further detail at your follow- up appointment, if applicable. Discharge Plan Admission Attending Provider: Shai Beckford Primary Care Provider: Olive Vásquez Instructions Additional Instructions / Restrictions: Follow preprinted instructions from your surgeons office. Discharge Orders/Prescriptions Prescriptions: New oxycodone 5 mg tablet 5 mg PO Q4H PRN (Reason: pain) 7 Days Qty: 42 0RF Continued hydroxyzine pamoate [Vistaril] 50 mg capsule 50 mg PO BID pantoprazole 40 mg tablet,delayed release (DR/EC) 40 mg PO DAILY Qty: 90 3RF buspirone 10 mg tablet 10 mg PO BID Label Comments: TAKE 1 TABLET BY MOUTH TWICE DAILY dextroamphetamine-amphetamine [Adderall] 5 mg Tablet 5 mg PO 1500 dextroamphetamine-amphetamine [Adderall XR] 25 mg Capsule,Extended Release 24hr 30 mg PO DAILY Referrals / Follow Up: Shai Beckford DO [Med Staff - Active Staff] - Olive Vásquez [Primary Care Provider] - Disposition Disposition (needs filled in before D/C Order can be placed): Home, Self Care
--- NOTE | 2023-01-09 14:17 | OP.PCM_ITS ---
Report of Operation Date of Procedure: 01/09/23 Description of Surgical Findings:: Preoperative diagnosis: 1. Left shoulder posterior labral tear 2. Left shoulder paralabral cyst 3. Symptomatic acromioclavicular joint osteoarthritis left shoulder Postoperative diagnosis: 1. Left shoulder posterior labral tear 2. Left shoulder paralabral cyst 3. 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 Diagnostic and operative left shoulder arthroscopy with labral repair and paralabral cyst debridement 2. Mini open distal clavicle excision [place] procedure Primary Surgeon: Shai Beckford DO Database Admin: Cari Alexander PA-C Anesthesia: General LMA with interscalene block Anesthesiologist: Dr. Clement Complications: None apparent Specimen: None Estimated blood loss: 50 cc IV fluids: 1 L crystalloid Urine output: None Packing/drains: None Implants: Arthrex fiber tack anchors x3, bio composite push lock anchor x1 Intraoperative findings: 1+ posterior glenohumeral instability with exam under anesthesia, diminutive posterior labrum with tearing from the 2:00 to 5:00 positions. Visualized debris from paralabral cyst following decompression of cyst. Preoperative indications: This is a 27-year-old male seen in the outpatient setting for left shoulder pain and instability. MRI was obtained by another provider which showed posterior labral tearing and paralabral cyst formation as well as acromioclavicular joint osteoarthrosis. Patient failed nonoperative management form of immobilization, physical therapy. Patient had prior instability in his right shoulder which was treated with a labral repair. He is doing well without side. He was to proceed with labral pair on the left side. We also discussed debridement of the paralabral cyst and performing a distal clavicle excision. I reviewed the risks, benefits, alternatives the procedure with the patient. Risks included but were not limited to bleeding, infection, loss of life or limb, nonhealing labrum, persistent pain or instability, persistent weakness, stiffness, need for prolonged immobilization, prolonged therapy, DVT or PE, risk of anesthesia, neurovascular injury, need for additional surgery. Patient expressed understanding these risks and wished to proceed with surgery. Description of procedure: Patient was identified in the preoperative holding area by name, medical record number, and date of . Informed consent was confirmed with the patient. The operative extremity was marked with a surgical marker. All questions were answered to the patient's satisfaction. An interscalene block was administered prior to the procedure by the anesthesia staff. At time of his procedure, patient was was brought to the operative suite and positioned supine on a standard operating table. General anesthesia was induced and LMA placed. Patient was then positioned in the lateral decubitus position with all bony prominences well-padded and an axillary roll was placed. He was held in position with a beanbag. We spun the bed approximately 20 degrees. We then prepped and draped the operative upper extremity in a normal, sterile orthopedic fashion. We performed a timeout with all parties in attendance in agreement with the side, site, and operation be performed. No concerns were voiced and we elected to proceed. 2 g Ancef was administered prior to the incision by anesthesia staff. Operative upper extremity was placed in traction utilizing a traction sleeve. 15 pounds was applied to the left upper extremity throughout the majority of the case. I first outlined the bony landmarks of the shoulder. I established a standard posterior portal with an 11 blade scalpel. Blunt tipped trocar in cannula was inserted into the glenohumeral joint. The joint was insufflated with normal saline solution with epinephrine in the first 2 bags. Trocar was removed and diagnostic arthroscopy was commenced. I established a standard interval portal anteriorly with localization via spinal needle. Skin was sharply incised with 11 blade scalpel. I then placed a switching stick and the incision, dilated the capsulotomy and placed a rigid cannula in the anterior portal for tenodesis suture passage and hardware placement. Diagnostic arthroscopy was commenced. Rotator cuff tissue appeared pristine from the articular surface. Biceps anchor was pristine and stable. Anterior labrum appeared intact. Posterior labrum was probed and demonstrated tearing from the 2:00 to 5:00 positions. I then proceeded with placing a rigid cannula in the posterior portal. I established an accessory posterior portal under direct visualization for planned anchor placement near the 4 o'clock position of the glenoid labrum. Rigid cannula was placed in this portal as well. I then placed the arthroscope in the anterior portal. I elevated the labrum from the glenoid face. The perilabral cyst was opened with an angled tissue elevator and serosanguineous fluid and debris were evacuated from the cyst. I then proceeded with labral repair. I drilled sequentially for 3 separate fiber tack anchors in staged fashion. These were placed at the 2:00, 3:00, and 5:00 positions. Working suture was passed via the suture lasso after posterior labral tissue and posterior capsular tissue was imbricated. Suture was passed through the locking mechanism and achieved improved tension in the posterior capsule and improved bumper effect of the torn labrum. At the 4 o'clock position I was unable to achieve appropriate trajectory with the drill guide for the fiber tack and elected to place a push lock anchor at this position. In similar fashion, suture lasso was used to im bricate posterior capsule and capture the remaining posterior labrum at which time the labral tape was passed through the tissue utilizing the nitinol wire within the suture lasso. Sutures were placed within the eyelet of the push lock anchor. We drilled for the push lock anchor, tension sutures and placed the push lock anchor in standard fashion. Sutures were cut flush with the anchors. Final arthroscopic images were obtained. I then turned my attention to the subacromial space. Arthroscopic instruments were removed. I entered the subacromial space with a blunt tipped trocar. I established a standard lateral portal with a spinal needle. Significant subacromial bursitis was encountered. This tissue was significantly friable and excessive bleeding was encountered. I was unable to significantly visualize the subacromial space, likely due to fluid extrusion during labral repair. I made the decision to convert to a mini open distal clavicle excision [place] procedure. A 2 cm incision was made in line with the AC joint. Full-thickness skin flaps were developed down to level of the fascia. Hemostasis achieved with Bovie cautery. The superior AC joint capsule was opened with the Bovie cautery and carefully elevated off the distal clavicle. Approximately 8 mm of distal clavicle was removed with the arthroscopic bur and subsequent rongeur. I then repaired the AC joint capsule in [id number] fashion with an 0 Vicryl suture. Wounds were copiously irrigated with normal saline solution. [place] incision was closed with horizontal mattress 4-0 nylon suture. Prtal sites were closed in interrupted [id number] fashion with 4-0 nylon suture. Sterile compression dressing was applied. Patient was then placed in UltraSling. He was able to be safely extubated in the operative suite. He was transferred to his gurney and subsequently to PACU in stable condition. Need for skilled clinical services assistant: Cari Alexander PA-C was critical to the outcome of the case. During the course of the procedure the physician clinical services assistant played a vital role. Her intimate knowledge of my steps in the procedure aided in safe and expedient completion of the procedure. The PA played a vital role in positioning particularly in obtaining the appropriate positioning. The PA was also vital in the retraction of soft tissues during the exposure and protecting vital structures. The PA was also vital and obtaining labral reduction and assisting with hardware placement. She also played a vital role in closure and sling application with my direct supervision. Postoperative plan: Patient will be nonweightbearing to the operative extremity. He should maintain his sling at all times unless to shower. He may shower on postoperative day #2 if no significant drainage. He will follow up in approximately 2 weeks for suture removal. We will plan to initiate twice daily aspirin for DVT prophylaxis starting tomorrow. Prescription for oxycodone was sent to his pharmacy for postoperative analgesia.
[2023-01-09] MEDS: oxyCODONE 5 MG Tablet PO (15:24)
== END 2023-01-09 16:01 | disposition home or self-care (01) ==
LOC: SDC 08:52 → AC 08:53
PROVIDERS: Referring Provider Student in an Organized Health Care Education/Training Program; Visit Provider Student in an Organized Health Care Education/Training Program
PROC: (CPT 29806; principal; 2023-01-09 10:25)
DX: S43.432A Superior glenoid labrum lesion of left shoulder, initial encounter (principal); M19.012 Primary osteoarthritis, left shoulder; M25.312 Other instability, left shoulder; S46.012A Strain of muscle(s) and tendon(s) of the rotator cuff of left shoulder, initial encounter; M75.22 Bicipital tendinitis, left shoulder; R03.0 Elevated blood-pressure reading, without diagnosis of hypertension; E66.8 Other obesity; Z68.35 Body mass index [BMI] 35.0-35.9, adult; Z87.891 Personal history of nicotine dependence
CPT/HCPCS: 29806; 23120; 01630; 64415; C1713; J7120; J2405

== ENCOUNTER 2023-03-19 11:25 | Observation (INO) | payer MEDICAID, SELFPAY ==
[2023-03-19 11:26] VITALS: PULSE 111; RESP 18; TEMP 36.4; O2SAT 100; BMI 34.4
[2023-03-19 11:27] VITALS: BP 177/123
--- NOTE | 2023-03-19 11:53 | EDS_ITS ---
HPI History of Present Illness Chief Complaint: Nausea/Vomiting Informant: patient Narrative Narrative: Presents with vomiting diarrhea for the past 4 days. Vomiting too many to count today mild streaks of blood. He states loose stools at times. No recent antib iotics. No sick contacts no recent travel. Epigastric discomfort. He has had previous cannabis hyperemesis syndrome and gastric ulcer. He is followed by Dr. Mendoza. EGD reported a year ago finding ulcers and hiatal hernia. He ran out of his pantoprazole. He states last use of cannabis was 2 months ago. Denies any allergies. Denies fevers or chills. Denies urinary symptoms. Patient denies any bloody stools or black tarry stools. Prior similar symptoms: Yes PFSH PFS Medical History ADHD Alcohol use Anxiety Asthma Cannabis hyperemesis syndrome concurrent with and due to cannabis abuse Colitis Colon wall thickening Depression Gastric reflux History of ulceration Injury of back Injury of head and neck Marijuana use Nausea and vomiting Restless legs Vapes nicotine containing substance Wears partial dentures Home Medications buspirone 10 mg tablet 10 mg PO BID 09/21/21 [History Last Taken Unknown] hydroxyzine pamoate 50 mg capsule (Vistaril) 50 mg PO BID 10/04/21 [History Last Taken Unknown] dextroamphetamine-amphetamine 5 mg tablet (Adderall) 5 mg PO 1500 10/05/21 [History Last Taken Unknown] dextroamphetamine-amphetamine ER 25 mg 24hr capsule,extend release (Adderall XR) 30 mg PO DAILY 10/05/21 [History Last Taken Unknown] pantoprazole 40 mg tablet,delayed release 40 mg PO DAILY #90 tabs 12/11/21 [Rx Last Taken Unknown] oxycodone 5 mg tablet 5 mg PO Q4H PRN pain 7 days #42 tabs 01/09/23 [Rx Last Taken Unknown] Allergy/AdvReac Type Severity Reaction Status Date / Time No Known Allergies Allergy Verified 03/19/23 11:27 Surgical History History of esophagogastroduodenoscopy (EGD) History of shoulder surgery Hx of colonoscopy with polypectomy Social History Smoking Status: Former smoker ROS ROS ED Constitutional Constitutional ED: Denies chills, fever(s) or sweats Eyes Eyes: Denies change in vision ENT ENT ED: Denies dysphagia or sore throat Cardiovascular Cardiovascular: Denies chest pain, leg edema, palpitations or racing heartbeat Respiratory/Chest Respiratory/Chest: Denies cough, dyspnea or dyspnea on exertion Gastrointestinal Gastrointestinal: Reports abdominal pain, diarrhea, nausea and vomiting Genitourinary Genitourinary ED: Denies dysuria, hematuria or urinary frequency Musculoskeletal Musculoskeletal: Denies back pain, extremity pain or neck pain Integumentary Denies rash or wounds Neurologic Neurologic: Denies headache(s), paresthesias or weakness EXAM Physical Exam Const Vital Signs: 03/19/23 11:26 03/19/23 11:27 03/19/23 13:06 Temperature 97.6 F L Temperature Source Temporal Pulse Rate 111 H 105 H Respiratory Rate 18 20 H Blood Pressure 177/123 H 165/115 H Blood Pressure Mean 141 131 Pulse Ox 100 94 Oxygen Delivery Method Room Air Room Air 03/19/23 13:38 Temperature Temperature Source Pulse Rate 110 H Respiratory Rate 16 Blood Pressure 144/97 H Blood Pressure Mean 112 Pulse Ox Oxygen Delivery Method Room Air Positive well nourished and well developed General Appearance ED: well developed and NAD HEENT HEENT Narrative: Mild dry mucosal membranes normocephalic and atraumatic Eyes PERRL, EOMs intact bilaterally and conjunctivae normal General Eye ED: Yes normal appearance of both eyes Neck no lymphadenopathy and supple General: Negative for tenderness Chest Wall Chest: Negative for tenderness Resp normal respiratory effort and normal air movement Effort and Inspection: symmetric chest movement; Negative for respiratory distress Cardio regular rhythm and no murmurs Rate: tachycardic Peripheral Pulses: pulses 2+ throughout GI normal to inspection, nondistended, normoactive bowel sounds GI Narrative: Epigastric tenderness, negative Owen's and McBurney's tenderness. Palpation: Negative for guarding or rebound tenderness present Back/Spine no CVA tenderness and no thoracic nor lumbar tenderness Extremity normal to inspection General Extremety ED: Negative for edema or tenderness General Extremity: Negative for edema Neuro oriented x3 and no sensory deficits noted Sensorium / Orientation: awake and alert Skin no rashes or lesions noted and no wounds MDM MDM MDM Narrative Medical decision making narrative: Interventions / MDM: Differential diagnosis: Cannabis hyperemesis syndrome, cyclic vomiting, gastritis, gastric ulcer, hematemesis Diagnosis considered but do not suspect: Perforation however CT negative. My EKG interpretation: N/A Imaging independently reviewed and interpreted by myself: CT no acute process, fatty liver, small hiatal hernia also read by radiology. External documents reviewed: N/A Test considered but not ordered:N/A ED course: Patient tachycardic on arrival epigastric tenderness on exam. Reported last THC use was 2 months ago. IV established abdominal labs fluids was ordered along with Zofran, Protonix, GI cocktail. 1250: Patient with significant hematemesis evaluated call back to room is 250 cc of output. Ordered for additional Reglan IV. I did speak with his GI doctor, Dr. Mendoza, would like to add Ativan, Protonix drip. Will plan for admission. CT abdomen pelvis ordered rule out perforation was negative. On reevaluation patient resting no current emesis. Toxicology screen did return positive for THC. He was adamant his last use was 2 months ago. Secondary to amount of hematemesis, I did speak with hospitalist Dr. Arechiga for admission. Blood pressure remained stable. Re-evaluation: stable Disposition discussed with patient/family/significant other: Patient Case discussed with consulting clinician: Dr. Reji WESLEY, hospitalist This note was generated with [employer] dictation software. It may contain incorrect words, spelling, and punctuation that were not noted in checking the note before signing. Lab Data Attestation: I reviewed the patient's lab results. Labs: Laboratory Results - last 24 hr 03/19/23 03/19/23 11:45 13:15 WBC 7.9 RBC 5.48 Hgb 15.3 Hct 45.7 MCV 83.4 MCH 27.9 MCHC 33.5 RDW Std Deviation 41.1 RDW Coeff of Misty 13.5 Plt Count 310 MPV 10.7 Immature Gran % (Auto) 1.100 H Neut % (Auto) 75.7 H Lymph % (Auto) 15.1 L Garza % (Auto) 7.2 Eos % (Auto) 0.1 Baso % (Auto) 0.8 Absolute Neuts (auto) 6.0 Absolute Lymphs (auto) 1.20 Nucleated RBC % 0 Sodium 137 Potassium 3.7 Chloride 100 Carbon Dioxide 29.0 Anion Gap 8 BUN 14 Creatinine 1.19 Estim Creat Clear Calc 94.57 Est GFR (MDRD) Af Amer 93 Est GFR (MDRD) Non-Af 77 BUN/Creatinine Ratio 11.8 Glucose 127 H Calcium 10.5 H Total Bilirubin 0.60 AST 27 ALT 59 Alkaline Phosphatase 73 Total Protein 8.2 Albumin 4.4 Globulin 3.8 Albumin/Globulin Ratio 1.2 Lipase 47 Urine Opiates Screen NEGATIVE Urine Methadone Screen NEGATIVE Ur Barbiturates Screen NEGATIVE Ur Phencyclidine Scrn NEGATIVE Ur Amphetamines Screen NEGATIVE MDMA (Ecstasy) Screen NEGATIVE U Benzodiazepines Scrn NEGATIVE Urine Cocaine Screen NEGATIVE U Cannabinoids Screen POSITIVE H Ur Drug Screen Comment Radiography Diagnostic Testing: Clinical Impression(s) from Imaging Studies Abdomen/Pelvis CT 03/19/23 13:14 IMPRESSION: Fatty infiltration of the liver. Small hiatal hernia. Electronically Signed: Albert Del Real MD at 14:03 EDT Reading Location ID and State: [facility] / [place] , Service support , Discharge Plan Triage Chief Complaint: Nausea/Vomiting ED Provider: Alphonse Mccarthy Dx/Rx/DC Orders Clinical Impression: Gastrointestinal hemorrhage with hematemesis, Abdominal pain, Sinus tachycardia, Tetrahydrocannabinol (THC) use disorder, mild, abuse [facility]
[2023-03-19] MEDS: 0.9% Normal Saline 1,000 ML 1000 ML IV (11:57)
[2023-03-19] MEDS: Ondansetron 4 MG/2 ML Vial IV ×2 (11:58→16:46)
[2023-03-19 11:59] LABS: Basophil# 0.06 X10^3/uL; Basophil% 0.8 % (0-1); Eosinophil# 0.01 X10^3/uL; Eosinophils% 0.1 % (0-5); Hematocrit 45.7 % (40-54); Hemoglobin 15.3 g/dL (13.0-16.5); Lymphocyte % 15.1 % (19-41); Mean Corp Hgb Conc 33.5 g/dL (32-36); Mean Corpuscular Hgb 27.9 pg (27.0-32.0); Mean Corpuscular Volume 83.4 fL (80-94); Mean Platelet Vol. 10.7 fl (6.2-12.0); Monocyte# 0.57 X10^3/uL; Monocyte% 7.2 % (0-10); NRBC Flagged by Analyzer 0 % (0-5); Neutrophil % 75.7 % (47-70); Platelet Count 310 K/mm3 (150-450); RBC Distribution Width CV 13.5 % (11.6-14.6); RBC Distribution Width SD 41.1 fl (35.1-43.9); Red Blood Count 5.48 M/mm3 (4.6-6.2); White Blood Count 7.9 K/mm3 (4.4-11.0)
[2023-03-19 12:11] LABS: ALB/GLOB Ratio 1.2 RATIO (0.9-2.4); AST(SGOT) 27 U/L (15-37); Alanine Aminotransfer ALT/SGPT 59 U/L (16-61); Albumin, Serum 4.4 g/dL (3.2-5.0); Alkaline Phosphatase 73 U/L (45-117); Anion Gap 8 (5-15); BUN 14 mg/dL (7-18); BUN/Creat Ratio 11.8 RATIO (10-20); Calcium,Total 10.5 mg/dL (8.5-10.1); Chloride 100 mmol/L (98-107); Creatinine, Serum 1.19 mg/dL (0.70-1.30); EST Glomerular Filtration Rate 77 mL/min (>60); Est Glom Filt Rate - Afr Amer 93 mL/min (>60); Estimated Creatinine Clearance 94.57 ml/min; Globulin 3.8 g/dL (2.2-4.2); Glucose 127 mg/dL (74-106); Lipase 47 U/L (13-75); Potassium 3.7 mmol/L (3.5-5.1); Protein, Total 8.2 g/dL (6.4-8.2); Sodium Level 137 mmol/L (136-145)
[2023-03-19] MEDS: Mag Hydrox/Al Hydrox/Simeth 30 ML UDC PO (12:23)
--- NOTE | 2023-03-19 12:41 | ED.RN ---
Patient vomited moderate amount of dark red blood. Denies use of marijuana x 1 month. Instructed to give urine sample when able, verbalized understanding. EMD at bedside.
[2023-03-19] MEDS: Metoclopramide 10 MG/2 ML Vial 5 MG IV (12:45)
[2023-03-19] MEDS: LORazepam 2 MG/ML Syringe 1 MG IV (12:57)
[2023-03-19 13:06] VITALS: BP 165/115; PULSE 105; RESP 20; O2SAT 94
--- NOTE | 2023-03-19 13:14 | CT_ITS ---
STUDY: CT ABDOMEN AND PELVIS WITHOUT CONTRAST REASON FOR EXAM: Male, 28 years old. Four-day history of vomiting. RADIATION DOSAGE (If Supplied By Facility): CTDIvol = ( 17.93 ) mGy, DLP = ( 981.16 ) mGycm TECHNIQUE: Transaxial images were obtained from the dome of the diaphragm to the symphysis pubis without oral contrast, and without intravenous contrast. Sagittal and coronal images were reconstructed. Individualized dose optimization techniques were used for this CT. COMPARISON: Comparison is made with prior study of September 21, 2021. FINDINGS: The visualized lung bases are unremarkable. The visualized portions of the heart are within normal limits. There is decreased attenuation of the liver consistent with steatosis. Normal gallbladder and extrahepatic biliary system. Normal spleen. Normal pancreas. Normal bilateral adrenal glands. Normal right kidney. Normal left kidney. There is a small hiatal hernia. Small amount of residual oral contrast is seen in the distal ileum. Normal colon. The appendix is visualized and appears normal. Normal abdominal aorta. Normal inferior vena cava. There is borderline retroperitoneal lymphadenopathy with enlarged nodes no greater than 10mm in the short axis diameter. Normal urinary bladder. Normal abdominal wall. Normal osseous structures. CT/Abdomen/Pelvis without Cont IMPRESSION: Fatty infiltration of the liver. Small hiatal hernia. Electronically Signed: Albert Del Real MD at 14:03 EDT ,
[2023-03-19 13:38] VITALS: BP 144/97; PULSE 110; RESP 16
[2023-03-19 13:45] LABS: Amphetamine Urine VISTA NEGATIVE (<1000 ng/mL); Barbiturate Urine VISTA NEGATIVE (< 200 ng/mL); Benzodiazepine Urine VISTA NEGATIVE (< 200 ng/mL); Cocaine Urine VISTA NEGATIVE (< 300 ng/mL); Ecstacy Urine VISTA NEGATIVE (< 500 ng/mL); Methadone Urine VISTA NEGATIVE (< 300 ng/mL); PCP Urine VISTA NEGATIVE (< 25 ng/mL); THC Urine VISTA POSITIVE (< 50 ng/mL); Vista UDS pH Range 7
--- NOTE | 2023-03-19 14:24 | NURSING ---
323 OBS TERELETSKY HEMATEMESIS, CYCLIC VOMITING
--- NOTE | 2023-03-19 15:41 | PCM.HP.STD ---
HPI - General General Date of Admission: 03/19/23 Date of Service: 03/19/23 Chief Complaint: Nausea and vomiting, hematemesis HPI Narrative ANGY CONWAY, is a 28 M who presents to the emergency room at [facility] with chief complaint of persistent nausea and vomiting with hematemesis over the last 4 days. He is also complaining of some mid abdominal pain. Labs obtained in the emergency room included a CBC which was unremarkable, patient's chemistry panel was also essentially unremarkable. CT of the abdomen and pelvis without contrast showed fatty infiltration of the liver and a small hiatal hernia. Patient had a history of hyperemesis from cannabis usage, he has not used any cannabis in 2 months however. Gastroenterology was contacted and requested the patient be admitted for hematemesis, he will need to undergo an endoscopy. Patient was placed on a Protonix drip. [facility] Medical History ADHD Alcohol use Anxiety Asthma Cannabis hyperemesis syndrome concurrent with and due to cannabis abuse Colitis Colon wall thickening Depression Gastric reflux History of ulceration Injury of back Injury of head and neck Marijuana use Nausea and vomiting Restless legs Vapes nicotine containing substance Wears partial dentures Home Medications buspirone 10 mg tablet 10 mg PO BID 09/21/21 [History Last Taken Unknown] hydroxyzine pamoate 50 mg capsule (Vistaril) 50 mg PO BID 10/04/21 [History Last Taken Unknown] dextroamphetamine-amphetamine 5 mg tablet (Adderall) 5 mg PO 1500 10/05/21 [History Last Taken Unknown] dextroamphetamine-amphetamine ER 25 mg 24hr capsule,extend release (Adderall XR) 30 mg PO DAILY 10/05/21 [History Last Taken Unknown] pantoprazole 40 mg tablet,delayed release 40 mg PO DAILY #90 tabs 12/11/21 [Rx Last Taken Unknown] oxycodone 5 mg tablet 5 mg PO Q4H PRN pain 7 days #42 tabs 01/09/23 [Rx Last Taken Unknown] Allergy/AdvReac Type Severity Reaction Status Date / Time No Known Allergies Allergy Verified 03/19/23 11:27 Surgical History History of esophagogastroduodenoscopy (EGD) History of shoulder surgery Hx of colonoscopy with polypectomy Social History Smoking Status: Former smoker ROS Constitutional Constitutional: Denies anorexia, change in weight, chills, fatigue, fever(s), malaise, night sweats or weakness Eyes Eyes: Denies blurry vision, change in vision, discharge from eye(s) or eye pain Cardiovascular Cardiovascular: Denies chest pain, claudication, dyspnea on exertion, edema, lightheadedness or palpitations Respiratory/Chest Respiratory/Chest: Denies cough, excessive phlegm production, hemoptysis, productive cough, shortness of breath at rest or shortness of breath with exertion Gastrointestinal Gastrointestinal: Reports abdominal pain, coffee ground emesis, hematemesis, nausea and vomiting; Denies constipation, diarrhea, hematochezia or melena Genitourinary Genitourinary: Denies dysuria, hematuria, urinary frequency, urinary hesitancy, urinary incontinence or urinary urgency Musculoskeletal Musculoskeletal: Denies back pain, joint pain, joint stiffness, joint swelling, myalgias or neck pain Neurologic Neurologic: Denies abnormal gait, abnormal speech, confusion, disequilibrium, dizziness, focal weakness, headache(s), loss of vision, numbness, other visual disturbances, paresthesias, syncope or tingling Psychiatric Psychiatric: Denies anxiety, cognitive impairment, depression, irritability, mood swings or suicidal ideation Endocrine Endocrinology: Denies change in body appearance, cold intolerance, excessive sweating, heat intolerance, polydipsia or polyuria Hematologic/Lymphatic Hematologic/Lymphatic: Denies none, anemia, easy bleeding, easy bruising or lymphadenopathy Allergic/Immunologic Allergic/Immunologic: Denies rhinitis, urticaria, eczemia or asthma Vital Signs Vital Signs Vital Signs: 03/19/23 11:26 03/19/23 11:27 03/19/23 13:06 Temperature 97.6 F L Temperature Source Temporal Pulse Rate 111 H 105 H Respiratory Rate 18 20 H Blood Pressure 177/123 H 165/115 H Blood Pressure Mean 141 131 Pulse Ox 100 94 Oxygen Delivery Method Room Air Room Air 03/19/23 13:38 Temperature Temperature Source Pulse Rate 110 H Respiratory Rate 16 Blood Pressure 144/97 H Blood Pressure Mean 112 Pulse Ox Oxygen Delivery Method Room Air Weight Weight: 108.862 kg Body Mass Index (BMI) 34.4 Physical Exam Const alert, oriented x3, no apparent distress, average body habitus and healthy appearing General Appearance: cooperative, well kempt and well developed Orientation / Consciousness: awake, oriented to person, oriented to place and oriented to time HEENT normocephalic, head/scalp atraumatic, hearing grossly normal bilaterally and moist oral mucous membranes Eyes PERRL, EOMs intact bilaterally and conjunctivae normal Neck supple, no JVD, thyroid normal and no carotid bruits General: trachea midline Resp normal respiratory effort, no retractions, no use of accessory muscles and clear to auscultation bilaterally Auscultation: Negative for rales, rhonchi or wheezes Cardio regular rate, regular rhythm, S1 normal heart sound, S2 normal heart sound, no murmurs, no rub and no gallops GI normal to inspection, nondistended, normoactive bowel sounds, soft to palpation and non-distended GI Narrative: Patient has some slight abdominal tenderness to palpation in the mid abdominal area above the umbilicus Extremity no clubbing, cyanosis or edema Skin no rashes or lesions noted General Skin Exam: no breakdown Neuro oriented x3, CN's II-XII intact bilaterally, moves all extremities, no focal motor deficits and no sensory deficits noted Sensorium / Orientation: awake, alert, oriented to person, oriented to place and oriented to time Speech: speech normal Psych affect normal Results Lab / Micro Data 03/19/23 11:45 03/19/23 11:45 Labs: Laboratory Results - last 24 hr 03/19/23 11:45: WBC 7.9, RBC 5.48, Hgb 15.3, Hct 45.7, MCV 83.4, MCH 27.9, MCHC 33.5, RDW Std Deviation 41.1, RDW Coeff of Misty 13.5, Plt Count 310, MPV 10.7, Immature Gran % (Auto) 1.100 H, Neut % (Auto) 75.7 H, Lymph % (Auto) 15.1 L, Douglas % (Auto) 7.2, Eos % (Auto) 0.1, Baso % (Auto) 0.8, Absolute Neuts (auto) 6.0, Absolute Lymphs (auto) 1.20, Nucleated RBC % 0, Sodium 137, Potassium 3.7, Chloride 100, Carbon Dioxide 29.0, Anion Gap 8, BUN 14, Creatinine 1.19, Estim Creat Clear Calc 94.57, Est GFR (MDRD) Af Amer 93, Est GFR (MDRD) Non-Af 77, BUN/Creatinine Ratio 11.8, Glucose 127 H, Calcium 10.5 H, Total Bilirubin 0.60, AST 27, ALT 59, Alkaline Phosphatase 73, Total Protein 8.2, Albumin 4.4, Globulin 3.8, Albumin/Globulin Ratio 1.2, Lipase 47 03/19/23 13:15: Urine Opiates Screen NEGATIVE, Urine Methadone Screen NEGATIVE, Ur Barbiturates Screen NEGATIVE, Ur Phencyclidine Scrn NEGATIVE, Ur Amphetamines Screen NEGATIVE, MDMA (Ecstasy) Screen NEGATIVE, U Benzodiazepines Scrn NEGATIVE, Urine Cocaine Screen NEGATIVE, U Cannabinoids Screen POSITIVE H, Ur Drug Screen Comment Radiology Impression Abdomen/Pelvis CT 03/19/23 13:14 IMPRESSION: Fatty infiltration of the liver. Small hiatal hernia. Electronically Signed: Albert Del Real MD at 14:03 EDT , Assessment & Plan Assessment/Plan (1) Nausea and vomiting: PLAN: Plan 1. Persistent nausea and vomiting with hematemesis-patient will be admitted to [facility] 3, serial H&H's will be obtained, patient will be maintained on a Protonix drip, patient will be seen in consultation by gastroenterology, patient will be n.p.o. #2 chronic anxiety-patient is on BuSpar at home, I will place him on Ativan as needed #3 ADHD-I will hold the patient's ADHD medications while he is hospitalized due to his n.p.o. status Total clinical time spent by myself addressing the patient's medical issues, reviewing all of his data, and collaborating with patient's care team: 55 minutes Charges/Coding Visit Charges Inpatient E&M: 39280 Init Hosp L2
[2023-03-19 15:56] LABS: Hematocrit 40.3 % (40-54); Hemoglobin 13.3 g/dL (13.0-16.5)
[2023-03-19 16:06] VITALS: BMI 35.2
[2023-03-19 16:30] VITALS: BP 149/115; PULSE 117; RESP 18; TEMP 36.7; O2SAT 99
[2023-03-19] MEDS: 0.9% Normal Saline 1,000 ML 150 ML IV (16:46)
[2023-03-19] MEDS: Morphine 4 MG/ML Syringe IV ×2 (16:52→21:16)
--- NOTE | 2023-03-19 17:25 | EX.PCM.CON.G ---
HPI Consult Data Date of Consult: 03/19/23 HPI Narrative Reason for Consultation: nausea and vomiting HPI Narrative: ANGY CONWAY, is a 28 M who presents with vomiting diarrhea for the past 4 days. He also complains of vomiting mild streaks of blood. He states loose stools at times. No recent antibiotics. No sick contacts no recent travel. He has had previous cannabis hyperemesis syndrome and gastric ulcer. EGD reported a year ago finding ulcers and hiatal hernia. He ran out of his pantoprazole. He states last use of cannabis was 2 months ago. Denies any allergies. Denies fevers or chills. Denies urinary symptoms. Patient denies any bloody stools or black tarry stools. He has not been seen in clinic for a year and a half. He was taking dicyclomine 40 mg QAM along with pantoprazole 40 mg daily; he does gets pain at corners of colon--RUQ, LUQ, LLQ. Symptoms are worse when he is cold. Increased stress lately. Episodes can be triggered by beer. At last visit we discussed the results of his colonoscopy which were benign. We also discussed his normal biochemical work-up, which was negative for celiac disease, inflammatory bowel disease, and included normal blood count, metabolic panel, liver panel, immune labs, CHON comprehensive. We discussed marijuana hyperemesis, he does not think that can be the cause since he did go for 6 months without marijuana and he still had symptoms. He states his brother is in medical school and his brother thinks marijuana is the problem. Continue to work on managing anxiety. 10/09/21 Colonoscopy: Impression: - The entire examined colon is normal. Biopsied. - Congested mucosa in the terminal ileum. Biopsied. Biopsies: no pathology colon, no pathology terminal ileum EGD and colonoscopy performed at another location in the summer of 2020 finding ulcers of the stomach and polyps in the colon. Unsure of results. CT abd/pel 2.09.01 found diffuse colonic wall thickening and minimal pericolonic stranding of the descending and rectosigmoid colon. Remaining exam without acute or chronic remark. CT abd/pel 2.07.02 found small hiatal hernia and normal small intestine and colon. Remaining exam without acute or chronic remark. [facility] Medical History (Updated 03/19/23 @ 16:15 by Tyra Betancur) ADHD Alcohol use Anxiety Asthma Back pain due to injury Cannabis hyperemesis syndrome concurrent with and due to cannabis abuse Chronic headaches Colitis Colon wall thickening Depression Gastric reflux History of ulceration Injury of back Injury of head and neck Marijuana use Nausea and vomiting Restless legs Vapes nicotine containing substance Wears partial dentures Home Medications buspirone 10 mg tablet 10 mg PO BID 09/21/21 [History Last Taken Unknown] hydroxyzine pamoate 50 mg capsule (Vistaril) 50 mg PO Q8H PRN anxiety 10/04/21 [History Last Taken Unknown] dextroamphetamine-amphetamine 5 mg tablet (Adderall) 5 mg PO 1500 10/05/21 [History Last Taken Unknown] dextroamphetamine-amphetamine ER 25 mg 24hr capsule,extend release (Adderall XR) 30 mg PO DAILY 10/05/21 [History Last Taken Unknown] Allergy/AdvReac Type Severity Reaction Status Date / Time No Known Allergies Allergy Verified 03/19/23 11:27 Surgical History (Updated 03/19/23 @ 16:15 by Tyra Betancur) History of esophagogastroduodenoscopy (EGD) History of shoulder surgery Hx of colonoscopy with polypectomy Social History Smoking Status: Current some day smoker tobacco type: e-cigarettes ROS Constitutional Constitutional: Denies anorexia, change in weight, chills, fatigue, fever(s), malaise, night sweats or weakness Eyes Eyes: Denies blurry vision, change in vision, discharge from eye(s) or eye pain Cardiovascular Cardiovascular: Denies chest pain, claudication, dyspnea on exertion, edema, lightheadedness or palpitations Respiratory/Chest Respiratory/Chest: Denies cough, excessive phlegm production, hemoptysis, productive cough, shortness of breath at rest or shortness of breath with exertion Gastrointestinal Gastrointestinal: Reports abdominal pain, coffee ground emesis, hematemesis, nausea and vomiting; Denies constipation, diarrhea, hematochezia or melena Genitourinary Genitourinary: Denies dysuria, hematuria, urinary frequency, urinary hesitancy, urinary incontinence or urinary urgency Musculoskeletal Musculoskeletal: Denies back pain, joint pain, joint stiffness, joint swelling, myalgias or neck pain Neurologic Neurologic: Denies abnormal gait, abnormal speech, confusion, disequilibrium, dizziness, focal weakness, headache(s), loss of vision, numbness, other visual disturbances, paresthesias, syncope or tingling Psychiatric Psychiatric: Denies anxiety, cognitive impairment, depression, irritability, mood swings or suicidal ideation Endocrine Endocrinology: Denies change in body appearance, cold intolerance, excessive sweating, heat intolerance, polydipsia or polyuria Hematologic/Lymphatic Hematologic/Lymphatic: Denies none, anemia, easy bleeding, easy bruising or lymphadenopathy Allergic/Immunologic Allergic/Immunologic: Denies rhinitis, urticaria, eczemia or asthma Physical Exam Const alert, oriented x3, no apparent distress, average body habitus and healthy appearing General Appearance: cooperative, well kempt and well developed Orientation / Consciousness: awake, oriented to person, oriented to place and oriented to time HEENT normocephalic, head/scalp atraumatic, hearing grossly normal bilaterally and moist oral mucous membranes Eyes PERRL, EOMs intact bilaterally and conjunctivae normal Neck supple, no JVD, thyroid normal and no carotid bruits General: trachea midline Resp normal respiratory effort, no retractions, no use of accessory muscles and clear to auscultation bilaterally Auscultation: Negative for rales, rhonchi or wheezes Cardio regular rate, regular rhythm, S1 normal heart sound, S2 normal heart sound, no murmurs, no rub and no gallops GI normal to inspection, nondistended, normoactive bowel sounds, soft to palpation and non-distended GI Narrative: Patient has some slight abdominal tenderness to palpation in the mid abdominal area above the umbilicus Extremity no clubbing, cyanosis or edema Skin no rashes or lesions noted General Skin Exam: no breakdown Neuro oriented x3, CN's II-XII intact bilaterally, moves all extremities, no focal motor deficits and no sensory deficits noted Sensorium / Orientation: awake, alert, oriented to person, oriented to place and oriented to time Speech: speech normal Psych affect normal Lab / Micro Data 03/19/23 15:43 03/19/23 11:45 Labs: Laboratory Results - last 24 hr 03/19/23 11:45: WBC 7.9, RBC 5.48, Hgb 15.3, Hct 45.7, MCV 83.4, MCH 27.9, MCHC 33.5, RDW Std Deviation 41.1, RDW Coeff of Misty 13.5, Plt Count 310, MPV 10.7, Immature Gran % (Auto) 1.100 H, Neut % (Auto) 75.7 H, Lymph % (Auto) 15.1 L, Miller % (Auto) 7.2, Eos % (Auto) 0.1, Baso % (Auto) 0.8, Absolute Neuts (auto) 6.0, Absolute Lymphs (auto) 1.20, Nucleated RBC % 0, Sodium 137, Potassium 3.7, Chloride 100, Carbon Dioxide 29.0, Anion Gap 8, BUN 14, Creatinine 1.19, Estim Creat Clear Calc 94.57, Est GFR (MDRD) Af Amer 93, Est GFR (MDRD) Non-Af 77, BUN/Creatinine Ratio 11.8, Glucose 127 H, Calcium 10.5 H, Total Bilirubin 0.60, AST 27, ALT 59, Alkaline Phosphatase 73, Total Protein 8.2, Albumin 4.4, Globulin 3.8, Albumin/Globulin Ratio 1.2, Lipase 47 03/19/23 13:15: Urine Opiates Screen NEGATIVE, Urine Methadone Screen NEGATIVE, Ur Barbiturates Screen NEGATIVE, Ur Phencyclidine Scrn NEGATIVE, Ur Amphetamines Screen NEGATIVE, MDMA (Ecstasy) Screen NEGATIVE, U Benzodiazepines Scrn NEGATIVE, Urine Cocaine Screen NEGATIVE, U Cannabinoids Screen POSITIVE H, Ur Drug Screen Comment 03/19/23 15:43: Hgb 13.3, Hct 40.3 Radiology Impression Abdomen/Pelvis CT 03/19/23 13:14 IMPRESSION: Fatty infiltration of the liver. Small hiatal hernia. Electronically Signed: Albert Del Real MD at 14:03 EDT , Assessment & Plan Assessment/Plan (1) Nausea and vomiting: PLAN: Plan 28-year-old with history of marijuana hyperemesis, presents with abdominal pain followed by nausea vomiting with hematemesis Persistent nausea and vomiting with hematemesis-agree with Protonix drip. As needed Zofran or metoclopramide. I gave him 1 mg of Ativan in the ED and he will undergo an upper endoscopy in the morning. N.p.o. past midnight. Charges/Coding Visit Charges Inpatient E&M: 25808 Init Hosp L3
[2023-03-19 19:33] LABS: Hematocrit 38.2 % (40-54); Hemoglobin 12.5 g/dL (13.0-16.5)
[2023-03-19] MEDS: proCHLORPERazine 10 MG/2 ML Vial IV (20:35)
[2023-03-19] MEDS: 0.9% Saline Lock 10 ML Syringe IV (20:38)
[2023-03-19 21:11] VITALS: BP 115/56; PULSE 91; RESP 16; TEMP 37; O2SAT 94
[2023-03-19 23:23] LABS: Hematocrit 35.9 % (40-54); Hemoglobin 11.6 g/dL (13.0-16.5)
[2023-03-20] MEDS: 0.9% Normal Saline 1,000 ML 150 ML IV (03:16)
[2023-03-20 03:25] VITALS: BP 112/68; PULSE 80; RESP 16; TEMP 36.6; O2SAT 95
--- NOTE | 2023-03-20 05:28 | NURSING ---
attempted to call ac to transfer the pt down there but phone just rang. will check back later
[2023-03-20] MEDS: Lactated Ringers 1,000 ML 15 ML IV (06:01)
--- NOTE | 2023-03-20 07:05 | OP.CCLET_ITS ---
03/20/2023 Olive Vásquez [facility] Re : Upper GI endoscopy procedure for [facility] This procedure was performed on March. My impressions and recommendations are as follows: Impressions : - LA Grade B reflux esophagitis. - Deidra-Lucas tear. Clips were placed. - No gross lesions in the stomach. - Normal second portion of the duodenum. - No specimens collected. Recommendations : - Discharge patient to home. - Resume previous diet. - Continue present medications. My findings are described in the full procedure note, which is enclosed. If I can be of further assistance, please feel free to contact me at . Sincerely, Dov Mendoza, 03/20/2023 7:04:21 AM This report has been signed electronically.
--- NOTE | 2023-03-20 07:05 | OP.EGD_ITS ---
Patient Name: Héctor Bah Procedure Date: 03/20/2023 6:17 AM Date of : 1995 Age: 28 Procedure: Upper GI endoscopy Indications: Hematemesis Providers: Dov Mendoza DO Medicines: Monitored Anesthesia Care Patient Profile: This is a 28 year old male. Refer to note in patient chart for documentation of history and physical. Patient has symptoms of acute vomiting. Complications: No immediate complications. Procedure: Pre-Anesthesia Assessment: - Prior to the procedure, a History and Physical was performed, and patient medications and allergies were reviewed. The risks and benefits of the procedure and the sedation options and risks were discussed with the patient. All questions were answered and informed consent was obtained. Patient identification and proposed procedure were verified by the physician. Mental Status Examination: normal. Prophylactic Antibiotics: The patient does not require prophylactic antibiotics. Prior Anticoagulants: The patient has taken no previous anticoagulant or antiplatelet agents. ASA Grade Assessment: II - A patient with mild systemic disease. After reviewing the risks and benefits, the patient was deemed in satisfactory condition to undergo the procedure. The anesthesia plan was to use monitored anesthesia care (MAC). Immediately prior to administration of medications, the patient was re-assessed for adequacy to receive sedatives. The heart rate, respiratory rate, oxygen saturations, blood pressure, adequacy of pulmonary ventilation, and response to care were monitored throughout the procedure. The physical status of the patient was re-assessed after the procedure. After obtaining informed consent, the endoscope was passed under direct vision. Throughout the procedure, the patient's blood pressure, pulse, and oxygen saturations were monitored continuously. The Endoscope was introduced through the mouth, and advanced to the second part of duodenum. The upper GI endoscopy was accomplished without difficulty. The patient tolerated the procedure well. Scope In: 6:50:56 AM Scope Out: 6:56:11 AM Total Procedure Duration Time 0 hours 5 minutes 15 seconds Findings: LA Grade B (one or more mucosal breaks greater than 5 mm, not extending between the tops of two mucosal folds) esophagitis with no bleeding was found 38 to 40 cm from the incisors. A 19 mm bleeding Deidra-Lucas tear with stigmata of recent bleeding was found. To repair the defect, the tissue edges were approximated and two hemostatic clips were successfully placed. Closure of the defect was successful. There was no bleeding at the end of the procedure. No gross lesions were noted in the entire examined stomach. The second portion of the duodenum was normal. Impression: - LA Grade B reflux esophagitis. - Deidra-Lucas tear. Clips were placed. - No gross lesions in the stomach. - Normal second portion of the duodenum. - No specimens collected. Recommendation: - Discharge patient to home. - Resume previous diet. - Continue present medications. Procedure Code(s): --- Professional --- 43380, Esophagogastroduodenoscopy, flexible, transoral; diagnostic, including collection of specimen(s) by brushing or washing, when performed (separate procedure) CPT copyright 2021 [employer]. All rights reserved. The codes documented in this report are preliminary and upon trim carpenter review may be revised to meet current compliance requirements. Dov Mendoza DO 03/20/2023 7:04:21 AM This report has been signed electronically. Number of Addenda: 0 Note Initiated On: 03/20/2023 6:17 AM
[2023-03-20 07:06] VITALS: BP 109/79; BP 112/68; PULSE 84; RESP 18; TEMP 36.2; O2SAT 96
[2023-03-20 07:10] VITALS: BP 112/68; BP 116/71; PULSE 94; RESP 18; O2SAT 99
[2023-03-20 07:17] VITALS: BP 108/79; BP 112/68; PULSE 93; RESP 18; O2SAT 98
[2023-03-20 07:19] VITALS: BP 110/77; BP 112/68; PULSE 78; RESP 18; TEMP 36.4; O2SAT 97
--- NOTE | 2023-03-20 07:59 | PN.HOSP_ITS ---
Reason for Visit Reason for Visit: Diagnoses Nausea with vomiting, unspecified (03/19/23) Objective Data Objective Data Vital Signs: Vital Signs Temp Pulse Resp BP Pulse Ox O2 Del Method 97.5 F L 78 18 110/77 97 Room Air 03/20/23 07:19 03/20/23 07:19 03/20/23 07:19 03/20/23 07:19 03/20/23 07:19 03/20/23 07:19 Oxygen Delivery Method Room Air Weight: 245 lb 2.464 oz Body Mass Index (BMI) 35.2 Intake & Output: Intake and Output for Last 24 Hours 03/18/23 03/19/23 03/20/23 23:59 23:59 23:59 Intake Total 2210 / 2310 462.5 / 462.5 Output Total 0 / 0 Balance 2210 / 2310 462.5 / 462.5 Lab / Micro Data 03/19/23 23:16 03/19/23 11:45 Labs: Laboratory Results - last 24 hr 03/19/23 11:45: WBC 7.9, RBC 5.48, Hgb 15.3, Hct 45.7, MCV 83.4, MCH 27.9, MCHC 33.5, RDW Std Deviation 41.1, RDW Coeff of Misty 13.5, Plt Count 310, MPV 10.7, Immature Gran % (Auto) 1.100 H, Neut % (Auto) 75.7 H, Lymph % (Auto) 15.1 L, Reynolds % (Auto) 7.2, Eos % (Auto) 0.1, Baso % (Auto) 0.8, Absolute Neuts (auto) 6.0, Absolute Lymphs (auto) 1.20, Nucleated RBC % 0, Sodium 137, Potassium 3.7, Chloride 100, Carbon Dioxide 29.0, Anion Gap 8, BUN 14, Creatinine 1.19, Estim Creat Clear Calc 94.57, Est GFR (MDRD) Af Amer 93, Est GFR (MDRD) Non-Af 77, BUN/Creatinine Ratio 11.8, Glucose 127 H, Calcium 10.5 H, Total Bilirubin 0.60, AST 27, ALT 59, Alkaline Phosphatase 73, Total Protein 8.2, Albumin 4.4, Globulin 3.8, Albumin/Globulin Ratio 1.2, Lipase 47 03/19/23 13:15: Urine Opiates Screen NEGATIVE, Urine Methadone Screen NEGATIVE, Ur Barbiturates Screen NEGATIVE, Ur Phencyclidine Scrn NEGATIVE, Ur Amphetamines Screen NEGATIVE, MDMA (Ecstasy) Screen NEGATIVE, U Benzodiazepines Scrn NEGATIVE, Urine Cocaine Screen NEGATIVE, U Cannabinoids Screen POSITIVE H, Ur Drug Screen Comment 03/19/23 15:43: Hgb 13.3, Hct 40.3 03/19/23 19:20: Hgb 12.5 L, Hct 38.2 L 03/19/23 23:16: Hgb 11.6 L, Hct 35.9 L Radiography Diagnostic Testing: Radiology Impression Abdomen/Pelvis CT 03/19/23 13:14 IMPRESSION: Fatty infiltration of the liver. Small hiatal hernia. Electronically Signed: Albert Del Real MD at 14:03 EDT Reading Location ID and State: [facility] / [place] , Service support , Assessment & Plan Assessment/Plan (1) Nausea and vomiting: PLAN: Plan 28-year-old gentleman was admitted with a chief complaint of persistent nausea and vomiting and then hematemesis, mainly mild streak of blood over the last 4 days. He also had loose stool. Mild abdominal pain. No recent antibiotic intake. 1. Persistent nausea and vomiting with hematemesis-patient will be admitted to [facility] 3, serial H&H's will be obtained, patient will be maintained on a Protonix drip, patient will be seen in consultation by gastroenterology, patient will be n.p.o. In the ED was done on 02/08/2022 reported LA grade B reflux esophagitis, Deidra- Lucas tear clips placed. No gross lesions in the stomach. Normal D2. #2 chronic anxiety-patient is on BuSpar at home, I will place him on Ativan as needed #3 ADHD-I will hold the patient's ADHD medications while he is hospitalized due to his n.p.o. status
--- NOTE | 2023-03-20 08:01 | PCM.DC ---
Discharge Instructions Diet Discharge Diet: Light diet - advance as tolerated (Soft diet for 3 days and then full diet) Activity Discharge Activity: Return to Normal Activity Weight Bearing Status: Weight bearing as tolerated Dressing / Incision Call your doctor if you observe: Fever of 101 or Higher, Coldness, Increased Pain, Numbness or Tingling, Change in Color, Inability to urinate, Inability to have a bowel movement, Shortness of breath, Dizziness, Fainting spells, Swelling in the ankles, Chest pain, Prolonged hiccupping, Increased palpitations (irregular heartbeat) and Calf discomfort Follow Up Care When: IN 2 WEEKS Test Results: Test results from this visit will be discussed in further detail at your follow-up appointment, if applicable. Discharge Plan Admission Admit Date/Time: 03/19/23 14:33 Primary Reason for Your Visit: Upper GI bleed, Deidra-Lucas tear Attending Provider: Gonzalez Bolden [facility] Consulting Providers: Alexander Arechiga Discharge Orders/Prescriptions Prescriptions: New pantoprazole [Protonix] 40 mg tablet,delayed release (DR/EC) 40 mg PO DAILY Qty: 30 1RF metoclopramide HCl 10 mg tablet 10 mg PO Q6H PRN (Reason: nausea and vomiting) 30 Days Qty: 30 0RF Continued hydroxyzine pamoate [Vistaril] 50 mg capsule 50 mg PO Q8H PRN (Reason: anxiety) buspirone 10 mg tablet 10 mg PO BID Patient Comments: TAKE 1 TABLET BY MOUTH TWICE DAILY dextroamphetamine-amphetamine [Adderall] 5 mg Tablet 5 mg PO 1500 dextroamphetamine-amphetamine [Adderall XR] 25 mg Capsule,Extended Release 24hr 30 mg PO DAILY Referrals / Follow Up: Dov Mendoza DO [Med Staff - Active Staff] - Within 1 Month (for Deidra-Lucas tear) [facility] - Disposition Disposition (needs filled in before D/C Order can be placed): Home, Self Care
[2023-03-20 08:04] VITALS: BP 113/80; PULSE 76; RESP 18; TEMP 36.9; O2SAT 96
--- NOTE | 2023-03-20 08:18 | NURSING ---
Pt is back from [facility] at this time. Pt feels hungry. Will start pt on clear liquid diet. Pt complains of STAPLES and complains of upper mid abd pain.
[2023-03-20] MEDS: Ondansetron 4 MG/2 ML Vial IV (08:36)
--- NOTE | 2023-03-20 09:58 | DS.PCM_ITS ---
Providers Date of Admission: 03/19/23 Date of Discharge: 03/20/23 Primary Care Physician: [facility] Consultations 03/19/23 15:21 Consult: Gastroenterology Routine Consulting Provider: Pamela Gastroenter[facility] Reason for Consult: hematemesis EMERGENT Consult: No MD Notified: Yes Date Notified: 03/19/23 Time Notified: 14:37 Method of Notification: Verbal Reason For Visit: HEMATEMESIS, CYCLIC VOMITING Diagnosis Discharge Diagnosis (1) Nausea and vomiting: Status: Acute Code(s): R11.2 - Nausea with vomiting, unspecified Plan 28-year-old gentleman was admitted with a chief complaint of persistent nausea and vomiting and then hematemesis, mainly mild streak of blood over the last 4 days. He also had loose stool. Mild abdominal pain. No recent antibiotic intake. 1. Persistent nausea and vomiting with hematemesis due to Deidra-Lucas tear: [facility] Patient was resuscitated with IV fluid, Protonix IV. Sinus tachycardia resolved. GI was consulted and EGD was done reported LA grade B reflux esophagitis, Deidra-Lucas tears, clips were applied. No gross lesion in stomach or duodenum found. Patient was given Protonix before the Protonix regimen. He said Reglan better controls his nausea and vomiting therefore prescription for pantoprazole and the metoclopramide was given. I think intractable nausea and vomiting probably due to cannabis therefore advised to quit it. Acute blood loss anemia due to upper GI bleed: Patient baseline hemoglobin is about 14.5 dropped to 11.6. No requirement for GI bleed. Prescription for ferrous sulfate and ascorbic acid given. #2 chronic anxiety-patient is on BuSpar at home, continued #3 ADHD-on Adderall. Discharge medication reconciliation done. Discharge follow-up instructions completed. Discharge process discussed with the patient and all questions were answered to patient's satisfaction. Total time spent, exact 35 minutes on discharge meds reconciliation, examination, coordination of care with nurses and ancillary staff, review of imaging and blood test and discussion with the patient on follow-up instructions. Medications at Discharge Home Medications buspirone 10 mg tablet 10 mg PO BID 09/21/21 hydroxyzine pamoate 50 mg capsule (Vistaril) 50 mg PO Q8H PRN anxiety 10/04/21 dextroamphetamine-amphetamine 5 mg tablet (Adderall) 5 mg PO 1500 10/05/21 dextroamphetamine-amphetamine ER 25 mg 24hr capsule,extend release (Adderall XR) 30 mg PO DAILY 10/05/21 ascorbic acid (vitamin C) 500 mg tablet 500 mg PO BID #60 tabs 03/20/23 ferrous sulfate 325 mg (65 mg iron) tablet (FeroSul) 325 mg PO DAILY #30 tabs 03/20/23 metoclopramide HCl 10 mg tablet 10 mg PO Q6H PRN nausea and vomiting 30 days #30 tabs 03/20/23 pantoprazole 40 mg tablet,delayed release (Protonix) 40 mg PO DAILY #30 tabs 03/20/23 Physical Exam Narrative seen and examined Nausea and vomiting controlled patient had EGD in the morning. General: Alert, Oriented x3, Cooperative HEENT: Atraumatic, PERRLA, EOMI, Normocephalic Oral: Moist. No Gingival or Mucosal Lesions/ Ulcerations Neck: Supple, No JVD, Negative Carotid Bruits Lungs: Air entry diminished in bilateral lung bases. No crepitation/rhonchi Cardiovascular: Regular rate, Regular Rhythm, Normal S1, Normal S2, No murmurs Abdomen: Bowel Sounds Present, Soft, Non Tender, Non-Distended : No renal angle tenderness. No suprapubic tenderness. Extremities: No edema, Capillary Refill Less than 3 Seconds Skin: No rashes, No breakdown Musculoskeletal: No Tenderness to Palpation of Joints or Extremities Neurological: Cranial nerves II-XII grossly intact, DTR 2+/4. No acute focal neurological deficit. Psych/Mental Status: Normal Affect, Appropriate. Weight / BMI Weight Weight: 245 lb 2.464 oz Body Mass Index (BMI) 35.2 ABG / Lab / Microbiology Data 03/19/23 23:16 03/19/23 11:45 Laboratory: Laboratory Results - last 24 hr 03/19/23 11:45: WBC 7.9, RBC 5.48, Hgb 15.3, Hct 45.7, MCV 83.4, MCH 27.9, MCHC 33.5, RDW Std Deviation 41.1, RDW Coeff of Misty 13.5, Plt Count 310, MPV 10.7, Immature Gran % (Auto) 1.100 H, Neut % (Auto) 75.7 H, Lymph % (Auto) 15.1 L, Pitt % (Auto) 7.2, Eos % (Auto) 0.1, Baso % (Auto) 0.8, Absolute Neuts (auto) 6.0, Absolute Lymphs (auto) 1.20, Nucleated RBC % 0, Sodium 137, Potassium 3.7, Chloride 100, Carbon Dioxide 29.0, Anion Gap 8, BUN 14, Creatinine 1.19, Estim Creat Clear Calc 94.57, Est GFR (MDRD) Af Amer 93, Est GFR (MDRD) Non-Af 77, BUN/Creatinine Ratio 11.8, Glucose 127 H, Calcium 10.5 H, Total Bilirubin 0.60, AST 27, ALT 59, Alkaline Phosphatase 73, Total Protein 8.2, Albumin 4.4, Globulin 3.8, Albumin/Globulin Ratio 1.2, Lipase 47 03/19/23 13:15: Urine Opiates Screen NEGATIVE, Urine Methadone Screen NEGATIVE, Ur Barbiturates Screen NEGATIVE, Ur Phencyclidine Scrn NEGATIVE, Ur Amphetamines Screen NEGATIVE, MDMA (Ecstasy) Screen NEGATIVE, U Benzodiazepines Scrn NEGATIVE, Urine Cocaine Screen NEGATIVE, U Cannabinoids Screen POSITIVE H, Ur Drug Screen Comment 03/19/23 15:43: Hgb 13.3, Hct 40.3 03/19/23 19:20: Hgb 12.5 L, Hct 38.2 L 03/19/23 23:16: Hgb 11.6 L, Hct 35.9 L Radiography Diagnostic Testing: Radiology Impression Abdomen/Pelvis CT 03/19/23 13:14 IMPRESSION: Fatty infiltration of the liver. Small hiatal hernia. Electronically Signed: Albert Del Real MD at 14:03 EDT , D/C Instructions Discharge Diet: Light diet - advance as tolerated (Soft diet for 3 days and then full diet) Weight Bearing Status: Weight bearing as tolerated Call your doctor if you observe: Fever of 101 or Higher, Coldness, Increased Pain, Numbness or Tingling, Change in Color, Inability to urinate, Inability to have a bowel movement, Shortness of breath, Dizziness, Fainting spells, Swelling in the ankles, Chest pain, Prolonged hiccupping, Increased palpitations (irregular heartbeat) and Calf discomfort When: IN 2 WEEKS Meaningful Use Info Meaningful Use Diagnoses (Choose all that apply): None applicable Discharge Plan Admission Admit Date/Time: 03/19/23 14:33 Primary Reason for Your Visit: Upper GI bleed, Deidra-Lucas tear Attending Provider: Gonzalez Bolden [facility] Providers: Alexander Arechiga Discharge Orders/Prescriptions Prescriptions: New pantoprazole [Protonix] 40 mg tablet,delayed release (DR/EC) 40 mg PO DAILY Qty: 30 1RF metoclopramide HCl 10 mg tablet 10 mg PO Q6H PRN (Reason: nausea and vomiting) 30 Days Qty: 30 0RF ferrous sulfate [FeroSul] 325 mg (65 mg iron) tablet 325 mg PO DAILY Qty: 30 2RF ascorbic acid (vitamin C) 500 mg tablet 500 mg PO BID Qty: 60 2RF Continued hydroxyzine pamoate [Vistaril] 50 mg capsule 50 mg PO Q8H PRN (Reason: anxiety) buspirone 10 mg tablet 10 mg PO BID Patient Comments: TAKE 1 TABLET BY MOUTH TWICE DAILY dextroamphetamine-amphetamine [Adderall] 5 mg Tablet 5 mg PO 1500 dextroamphetamine-amphetamine [Adderall XR] 25 mg Capsule,Extended Release 24hr 30 mg PO DAILY Referrals / Follow Up: Friend,DO Dov [Med Staff - Active Staff] - Within 1 Month (for Deidra- Lucas tear) [facility] - Disposition Disposition (needs filled in before D/C Order can be placed): Home, Self Care Charges/Coding Visit Charges Inpatient E&M: 06843 Disch Hosp >30min
--- NOTE | 2023-03-20 10:54 | CASEMGMT ---
Social Work SW met with pt as pt currently has no health insurance. Pt states he started on Medicaid in October but it was stopped in February and he does not know why. SW encouraged pt to call [facility] to discuss. Pt open to conversation with rTey regarding Medicaid. Email sent ot Trey. Resources provided for prescription assistance, [facility], [facility] and [employer]. Pt denies any further needs. VIKASH Walker
--- NOTE | 2023-03-20 11:54 | CHAPLAIN ---
Type of Pastoral Visit _x__ Initial Visit ___ Follow-up Visit ___ On-call Visit ___ General Patient Visit ___ Spiritual Assessment ___ Family Conference ___ Bereavement ___ Rapid Response ___ Code Blue ___ Other (describe below) Pastoral Care Referral From _x__ Patient ___ Family ___ Nurse ___ Physician ___ Powertrain Engineer ___ Technical Implementation Lead ___ Other (describe below) Sacrament/Intervention _x__ Active listening ___ Anointing ___ Adventism ___ Bereavement ___ Communion ___ Tiffani exploration ___ ___ Life review ___ Prayer ___ Reconciliation ___ Sacrament of Sick ___ Supportive presence ___ Wedding ___ Other (describe below) Pastoral Comments patient reports that he is being discharged today; pt states that this is all that he needed to know and that he is fine; there is casual conversation for personal support
== END 2023-03-20 12:25 | disposition home or self-care (01) ==
LOC: ED 11:57 → MS3 14:39
PROVIDERS: Internal Medicine Gastroenterology; Admitting Provider Internal Medicine; Emergency Provider Emergency Medicine; Visit Provider Internal Medicine
PROC: 0DJ08ZZ Inspection of Upper Intestinal Tract, Via Natural or Artificial Opening Endoscopic (ICD-10-PCS; CPT 43235; principal; 2023-03-20 06:25)
DX: K22.6 Gastro-esophageal laceration-hemorrhage syndrome (principal); K21.01 Gastro-esophageal reflux disease with esophagitis, with bleeding; R10.13 Epigastric pain; F90.9 Attention-deficit hyperactivity disorder, unspecified type; Z87.891 Personal history of nicotine dependence; F17.290 Nicotine dependence, other tobacco product, uncomplicated; Z79.899 Other long term (current) drug therapy; J45.909 Unspecified asthma, uncomplicated; F32.A Depression, unspecified; F41.9 Anxiety disorder, unspecified; R00.0 Tachycardia, unspecified; D62 Acute posthemorrhagic anemia
CPT/HCPCS: 43235; 36415; 74176; 80053; 80307; 83690; 85014; 85018; 85025; 96361; 96365; 96366; 96375; 96376; 99221; 99282; 99406; J7030; J7120; A4216; G0378; J2405

== ENCOUNTER → 2023-09-22 | Outpatient (CLI) | payer OTHER, MEDICAID, SELFPAY ==
--- OUTSIDE RECORDS SUMMARY | 2023-09-22 20:30 | XMS RPT_ITS | CCD ---
Author Name Unknown Address [address] [place] [address] Organization [facility] Care Team Providers Care Lamination Operator Name Role Phone Nila Workman Unavailable No, Physician Unavailable Unavailable NO, PHYSICIAN Unavailable Unavailable MAYA HAMPTON Unavailable Unavai MARLON Encarnacion Unavailable Unavailab le Chidi Workman Primary Care Provider Unava ilable Chidi Workman Primary Care Provider NILA WORKMAN Primary Care Unavailable CAM ESPINAL Attending Unavailable NILA WORKMAN Attending Unavailable SHANTE NILA X Primary Care Unavailable SHANTE NILA X Primary Care Unavailable RUBENS SUTTON Attending Unavailable MARII DUQUE Referring Unavailable NILA WORKMAN Primary Care Unavailable Chidi Workman Primary Care Provider [phone] Unavailable Primary Care Provider Unavailabl e Unavailable Primary Care Provider Unavailabl e Medications Current Medications Medication Drug Class(es) Dates Sig (Normalized) Sig (Original) dexamethasone 1 mg/ml / neomycin 3.5 mg/ml / polymyxin b 61576 unt/ml ophthalmic suspension (7 sources) Aminoglycoside Antibacterial, Polymyxin-class Antibacterial, Corticosteroid take 1 drop(s) into the eye(s) twice daily neomycin-polymyxi n-dexamethasone (MAXITROL) 3.5mg/mL-10,000 unit/mL-0.1 % ophthalmic suspension Apply 1 drop to eye 2 (two) times a day. 0 Active fluconazole 200 mg oral tablet (1 source) Azole Antifungal Start: 01-01-2019 take 1 tablet by mouth every week, then take 1 tablet by mouth fluconazole (DIFLUCAN) 200 MG tablet Indications: Tinea versicolor Take 1 (one) tablet (200 mg total) by mouth once a week . Use for a total of 4 weeks (4 doses) . 4 tablet 0 01/01/2019 Active ketoconazole 20 mg/ml medicated shampoo (1 source) Azole Antifungal Start: 01-01-2019 ketoconazole (NIZORAL) 2 % shampoo Indications: Tinea versicolor Apply topically 2-3 times weekly, use to wash the chest and back. Leave on for 5-10 minutes and then rinse. . 120 mL 2 01/01/2019 Active ondansetron 4 mg oral tablet (15 sources) Serotonin-3 Receptor Antagonist Start: 12-04-2017 take 1 tablet by mouth every eight hours as needed ondansetron (ZOFRAN) 4 MG tablet Take 1 (one) tablet (4 mg total) by mouth every 8 (eight) hours as needed for nausea. 10 tablet 0 12/04/2017 Active Completed/Discontinued Medications Medication Drug Class(es) Dates Sig (Normalized) Sig (Original) acetaminophen 325 mg oral tablet (1 source) Start: 12-13-2018 End: 12-13-2018 acetaminophen (TYLENOL) tablet 975 mg acetaminophen 325 mg / HYDROcodone bitartrate 5 mg oral tablet (2 sources) Opioid Agonist Start: 12-13-2018 End: 12-13-2018 HYDROcodone-acetamin ophen (NORCO) 5-325 mg per tablet 1 tablet Problems Active Problems Problem Classification Problem Date Documented Date Episodic/Chronic Cardiac dysrhythmias (1 source) Tachycardia; Translations: [Tachycardia, unspecified] Episodic Disorders of teeth and jaw (2 sources) Infection of tooth; Translations: [Toothache] Episodic Esophageal disorders (3 sources) Gastroesophageal reflux disease; Translations: [GERD (gastroesophageal reflux disease)] Onset: 06-01-2018 06-01-2018 Chronic Nausea and vomiting (4 sources) Nausea with vomiting, unspecified; Translations: [Nausea and vomiting] Onset: 09-10-2017 Episodic Open wounds of extremities (1 source) Laceration of hand Episodic Spondylosis; intervertebral disc disorders; other back problems (1 source) Backache; Translations: [Dorsalgia, unspecified] Episodic Past or Other Problems Problem Classification Problem Date Documented Da te Episodic/Chronic Abdominal pain (1 source) Epigastric pain Episodic Allergic reactions (1 source) Allergic contact dermatitis due to metal; Translations: [Allergic contact dermatitis due to metals] Episodic Mycoses (1 source) Pityriasis versicolor; Translations: [Tinea versicolor] Episodic Noninfectious gastroenteritis (3 sources) Chronic diarrhea; Translations: [Chronic diarrhea] Onset: 06-01-2018 06-01-2018 Episodic Other congenital anomalies (1 source) Keratosis pilaris; Translations: [Keratosis pilaris] Episodic Other disorders of stomach and duodenum (8 sources) Cyclical vomiting syndrome; Translations: [Cyclical vomiting] Onset: 09-10-2017 09-10-2017 Episodic Other nutritional; endocrine; and metabolic disorders (1 source) Weight change finding; Translations: [Unintentional weight change] Onset: 06-01-2018 06-01-2018 Episodic Residual codes; unclassified (2 sources) Other general symptoms and signs; Translations: [Unintentional weight change] Onset: 06-01-2018 06-01-2018 Episodic Results Test Name Value Interpretation Reference Range Facil it Vital Signs Date Time Vital Sign Value Performing Clinician Evert amador 11-07-2022 09:46-0400 Body temperature 98.6 [degF] Delfina Peters APRN.[facility] Work Phone: [facility] 11-07-2022 09:46-0400 Body weight 108.23 kg Delfina Peters APRN.[facility] Work Phone: [facility] 11-07-2022 09:46-0400 Diastolic blood pressure 100 mm[Hg] Delfina Peters APRN.[facility] Work Phone: [facility] 11-07-2022 09:46-0400 Heart rate 145 /min Delfina Peters APRN.[facility] Work Phone: [facility] 11-07-2022 09:46-0400 Respiratory rate 20 /min Delfina Peters APRN.[facility] Work Phone: [facility] 11-07-2022 09:46-0400 SaO2% (BldA) [Mass fraction] 95 % Delfina Peters APRN.[employer] Work Phone: [facility] 11-07-2022 09:46-0400 Systolic blood pressure 110 mm[Hg] Delfina Peters APRN.[employer] Work Phone: [facility] 12-13-2018 20:14-0400 BP Diastolic 83 mm[Hg] Camkiran Espinal [facility] 12-13-2018 20:14-0400 BP Systolic 129 mm[Hg] Cam Espinal [facility] 12-13-2018 20:14-0400 Pulse (Heart Rate) 97 /min Camkiran Espinal [facility] 12-13-2018 20:14-0400 Pulse Oximetry 96 % Camkirna Espinal [facility] 12-13-2018 20:14-0400 Respiratory Rate 18 /min Camkiran Espinal [facility] 12-13-2018 19:30-0400 BMI (Body Mass Index) 27.85 kg/m2 Camkiran Espinal [facility] 12-13-2018 19:30-0400 Body Temperature 100.2 [degF] Cam Espinal [facility] 12-13-2018 19:30-0400 Height 177.8 cm [facility] 12-13-2018 19:30-0400 Weight 88.03 kg Camkiran Espinal [facility] 10-08-2018 14:20-0500 BMI (Body Mass Index) 27.69 kg/m2 [facility] 10-08-2018 14:20-0500 Body Temperature 98.6 [degF] [facility] 10-08-2018 14:20-0500 BP Diastolic 72 mm[Hg] [facility] 10-08-2018 14:20-0500 BP Systolic 118 mm[Hg] [facility] 10-08-2018 14:20-0500 Pulse (Heart Rate) 83 /min [facility] 10-08-2018 14:20-0500 Weight 87.54 kg [facility] 03-03-2018 01:35-0400 BP Diastolic 68 mm[Hg] Lindsey Murraycuauhtemoc [facility] 03-03-2018 01:35-0400 BP Systolic 105 mm[Hg] [facility]-03-2018 01:35-0400 Pulse (Heart Rate) 71 /min [facility] 03-03-2018 01:35-0400 Pulse Oximetry 97 % [facility] 03-03-2018 01:35-0400 Respiratory Rate 16 /min [facility] 03-03-2018 00:03-0400 BMI (Body Mass Index) 28.44 kg/m2 [facility] 03-03-2018 00:03-0400 Body Temperature 98.2 [degF] [facility] 03-03-2018 00:03-0400 Height 177.8 cm [facility] 03-03-2018 00:03-0400 Weight 89.9 kg [facility] 01-01-2018 09:10-0400 BMI (Body Mass Index) 30.86 kg/m2 [facility] 01-01-2018 09:10-0400 Body Temperature 97.81 [degF] [facility] 01-01-2018 09:10-0400 BP Diastolic 89 mm[Hg] [facility] 01-01-2018 09:10-0400 BP Systolic 135 mm[Hg] [facility] 01-01-2018 09:10-0400 Height 177.8 cm [facility] 01-01-2018 09:10-0400 Pulse (Heart Rate) 89 /min [facility] 01-01-2018 09:10-0400 Respiratory Rate 17 /min [facility] 01-01-2018 09:10-0400 Weight 97.57 kg [facility] 12-04-2017 14:28-0400 BP Diastolic 97 mm[Hg] Merlin [facility] 12-04-2017 14:28-0400 BP Systolic 153 mm[Hg] Merlin [facility] 12-04-2017 14:28-0400 Pulse (Heart Rate) 58 /min [facility] 12-04-2017 14:28-0400 Pulse Oximetry 98 % [facility] 12-04-2017 14:28-0400 Respiratory Rate 16 /min Merlin [facility] 12-04-2017 11:55-0400 BMI (Body Mass Index) 31.74 kg/m2 Merlin Bird [facility] 12-04-2017 11:55-0400 Body Temperature 98.01 [degF] Merlin Bird [facility] 12-04-2017 11:55-0400 Height 177.8 cm Merlin Bird [facility] 12-04-2017 11:55-0400 Weight 100.34 kg Merlin Bird [facility] 09-11-2017 07:54-0500 Body Temperature 98.01 [degF] Monet Rae [facility] Work Phone: 09-11-2017 07:54-0500 BP Diastolic 82 mm[Hg] Monet Rae [facility] Work Phone: 09-11-2017 07:54-0500 BP Systolic 134 mm[Hg] Monet Rae [facility] Work Phone: 09-11-2017 07:54-0500 Pulse (Heart Rate) 66 /min Monet Rae [facility] Work Phone: 09-11-2017 07:54-0500 Pulse Oximetry 97 % Monet Rae [facility] Work Phone: 09-11-2017 07:54-0500 Respiratory Rate 14 /min Monet Rae [facility] Work Phone: 09-10-2017 17:45-0500 BMI (Body Mass Index) 31.57 kg/m2 Monet Rae [facility] Work Phone: 09-10-2017 17:45-0500 Height 177.8 cm Monet Rae [facility] Work Phone: 09-10-2017 17:45-0500 Weight 99.79 kg Monet Rae [facility] Work Phone: 06-02-2017 22:36-0400 BP Diastolic 79 mm[Hg] Calvin Hillker [facility] Work Phone: 06-02-2017 22:36-0400 BP Systolic 130 mm[Hg] Calvin Skinner [facility] Work Phone: 06-02-2017 22:36-0400 Pulse (Heart Rate) 64 /min Calvin Skinner [facility] Work Phone: 06-02-2017 22:36-0400 Pulse Oximetry 99 % Calvin Skinner [facility] Work Phone: 06-02-2017 22:36-0400 Respiratory Rate 16 /min Calvin Skinner [facility] Work Phone: 06-02-2017 19:53-0400 Body Temperature 97.5 [degF] Calvin Skinner [facility] Work Phone: 06-02-2017 16:56-0400 BMI (Body Mass Index) 31.21 kg/m2 Calvin Skinner [facility] Work Phone: 06-02-2017 16:56-0400 Height 180.3 cm Calvin Skinner [facility] Work Phone: 06-02-2017 16:56-0400 Weight 101.52 kg Calvin Skinner [facility] Work Phone: Encounters Encounter Date Encounter Type Care Provider Facility Start: 11-07-2022 End: 11-07-2022 ambulatory Facility:[facility] Start: 11-07-2022 End: 11-07-2022 Patient encounter procedure Delfina Peters APRN.CNP Work Phone: [facility] Procedures Date Procedure Procedure Detail Performing Clinician Start: 02-01-2021 Drug screen class list a Miller Muñiz MD Work Phone: Start: 03-03-2018 End: 03-03-2018 LACERATION REPAIR John Broussard Work Phone: Plan of Treatment Date Care Activity Detail Author Start: 08-11-2022 DEPRESSION ASSESSMENT DEPRESSION ASSESSMENT [facility] Start: 04-11-2022 Influenza vaccination INFLUENZA (#1) [facility] Start: 04-11-2019 Influenza vaccination given SEQUENTIAL INFLUENZA VACCINE (Season Ended) [facility] Start: 02-05-2019 End: 02-05-2019 Office Visit 02/05/2019 Office Visit Dermatology Rubens Sutton, DO [address] [place] [address] [phone] [facility] D[facility] Start: 01-01-2019 End: 01-01-2019 Office Visit 01/01/2019 Office Visit Dermatology Rubens Sutton, DO [address] [place] [address] [phone] [facility] Dermatology Start: 12-03-2018 End: 12-03-2018 Office Visit 12/03/2018 Office Visit Gastroenterology [facility] Start: 04-14-2018 End: 04-14-2018 Ambulatory 04/14/2018 Office Visit Primary Care Nila Workman, DO [address] [place] [address] [phone] [facility] Start: 04-11-2018 Influenza vaccination [facility] Start: 04-11-2018 Influenza vaccination given SEQUENTIAL INFLUENZA VACCINE (#1) [facility] Start: 04-11-2017 Influenza vaccination SEQUENTIAL INFLUENZA VACCINE (#1) [facility] Work Phone: Start: 2013 Urine microalbumin profile DTAP,TDAP,TD (1 - Tdap) [facility] Start: 02-20-2012 HEPATITIS C SCREENING HEPATITIS C SCREENING [facility] Start: 02-20-2012 HIV SCREENING HIV SCREENING [facility] Start: 02-20-2000 PNEUMOCOCCAL (1 - PCV) PNEUMOCOCCAL (1 - PCV) [facility] Start: 1997 History and physical examination, annual for health maintenance Wellness Visit [facility] Start: 1994 HEPATITIS B (1 of 3 - 3-dose series) HEPATITIS B (1 of 3 - 3-dose series) [facility] Start: 1994 Tetanus vaccination TETANUS EVERY 10 YR [facility] Work Phone: End: 10-08-2019 Colonoscopy Colonoscopy Routine Intractable cyclical vomiting with nausea 1 Occurrences starting 10/08/2018 until 10/08/2019 [facility] Immunizations Immunization Date Immunization Notes Care Provider Fa cility NEGATED: Highlighted row has not occurred!03-03-2018 tetanus toxoid, reduced diphtheria toxoid, and acellular pertussis vaccine, adsorbed; Translations: [TDAP] Lindsey Partida [facility] Payers Date Payer Category Payer Medicaid [employer]M MEDICAID [employer] [facility] MEDICAID [facility] [id number] 2022-Present [phone] [address] [place] [address] Medicaid [id number] 2022 Medicaid [id number] 2016 Medicaid [id number] 2016 Medicaid [employer] [facility] MEDICAID [employer] MEDICAID xxxxxxxxxxx 2016-Present xxxxxxxxxxx [id number] 1994 Unknown [id number] 1994 Unknown [id number] 1994 Unknown [id number] 1994 Unknown [id number] Social History Date Type Detail Facility Start: 01-01-2018 End: 01-01-2019 Tobacco smoking status PAIS Current every day smoker [facility] Work Phone: History of tobacco use Cigarette Smoker [employer] Phone: Start: 01-01-2018 End: 01-01-2019 Cigarettes smoked current (pack per day) - Reported [employer] Phone: Start: 1994 Sex Assigned At Not on file [employer] Phone: Start: 02-12-2017 Alcohol Comment occ [facility] Start: 11-07-2022 Tobacco smoking stat us NHIS Occasional tobacco smoker [facility] History of tobacco use Pipe Smoker [facility] History of tobacco use Passive smoker [facility] Start: 11-07-2022 Tobacco use and exposure Smokeless tobacco non-user [facility] Progress note 11-07-2022 Note Date & Type Note Facility 11-07-2022 Note HNO ID: [id number] Author: Delfina Peters APRN.[employer] Service: ? Author Type: Nurse Practitioner Type: Progress Notes Filed: 11/07/2022 10:18 AM Note Text: Subjective Vomiting Associated symptoms include abdominal pain. Pertinent negatives include no chills, no cough and no fever. Héctor Conway is a 27 year old male who presents with pain between his shoulder blades and vomiting for the past 2 days. He rates his pain 7/10. He has not taken any medication for his pain other than his dicyclomine which he takes for his stomach. He has been seeing Dr. Mendoza for management of cyclical vomiting syndrome for the past 7 years. With questioning, he admits that it feels like my heart is going to jump out of my chest and has had right jaw pain and pain in his right shoulder the past 2 days but this is intermittent. Also has some left upper quadrant pain. Review of Systems Constitutional: Negative for chills and fever. Respiratory: Positive for shortness of breath. Negative for cough. Cardiovascular: Positive for chest pain and palpitations. Gastrointestinal: Positive for abdominal pain, nausea and vomiting. Musculoskeletal: Positive for back pain. BP 110/100 Pulse (!) 145 Temp 37 ?C (98.6 ?F) Resp 20 Wt 108.2 kg (238 lb 9.6 oz) SpO2 95% No past medical history on file. No past surgical history on file. ALLERGIES Patient has no allergy information on record. MEDICATIONS dicyclomine (BENTYL) 10 mg capsule Take 10 mg by mouth. busPIRone (BUSPAR) 10 mg tablet amphetamine-dextroamphetamine XR (ADDERALL XR) 30 mg 24 hr capsule hydrOXYzine pamoate (VISTARIL) 50 mg capsule take 1 capsule by mouth three times a day if needed for anxiety ondansetron orally disintegrating (ZOFRAN ODT) 4 mg disintegrating tablet Take 4 mg by mouth three times daily as needed. No family history on file. Social History Tobacco Use Smoking status: Some Days Types: Pipe Passive exposure: Current Smokeless tobacco: Never Objective Physical Exam Vitals and nursing note reviewed. Constitutional: General: He is in acute distress (in visible pain, wincing with movements). Appearance: He is not toxic-appearing. Cardiovascular: Rate and Rhythm: Regular rhythm. Tachycardia present. Pulmonary: Effort: Pulmonary effort is normal. No respiratory distress. Breath sounds: Normal breath sounds. No wheezing or rales. Abdominal: Tenderness: There is abdominal tenderness in the left upper quadrant. Neurological: Mental Status: He is alert. ASSESSMENT/PLAN: 1. Tachycardia - ICD9: 785.0, ICD10: R00.0 (primary diagnosis) 2. Vomiting, unspecified vomiting type, unspecified whether nausea present - ICD9: 787.03, ICD10: R11.10 3. Upper back pain - ICD9: 724.5, ICD10: M54.9 - referred to ER for further evaluation and treatment. Concern for cholecystitis vs. Cardiac etiology. Patient offered ambulance transport but states he will drive himself to [place] [facility] or [place] [facility]. He is concerned to go directly to ER. Delfina Peters APRN.[facility] History of Present illness Narrative 11-07-2022 Delfina Peters APRN.[facility]ILY - 11/07/2022 10:13 AM EDT Note Date & Type Note Facility 11-07-2022 History of Presen t illness Narrative Subjective Vomiting Associated symptoms include abdominal pain. Pertinent negatives include no chills, no cough and no fever. Héctor Conway is a 27 year old male who presents with pain between his shoulder blades and vomiting for the past 2 days. He rates his pain 7/10. He has not taken any medication for his pain other than his dicyclomine which he takes for his stomach. He has been seeing Dr. Mendoza for management of cyclical vomiting syndrome for the past 7 years. With questioning, he admits that it feels like my heart is going to jump out of my chest and has had right jaw pain and pain in his right shoulder the past 2 days but this is intermittent. Also has some left upper quadrant pain. Review of Systems Constitutional: Negative for chills and fever. Respiratory: Positive for shortness of breath. Negative for cough. Cardiovascular: Positive for chest pain and palpitations. Gastrointestinal: Positive for abdominal pain, nausea and vomiting. Musculoskeletal: Positive for back pain. BP 110/100 Pulse (!) 145 Temp 37 C (98.6 F) Resp 20 Wt 108.2 kg (238 lb 9.6 oz) SpO2 95% No past medical history on file. No past surgical history on file. ALLERGIES Patient has no allergy information on record. MEDICATIONS dicyclomine (BENTYL) 10 mg capsule Take 10 mg by mouth. busPIRone (BUSPAR) 10 mg tablet amphetamine-dextroamphetamine XR (ADDERALL XR) 30 mg 24 hr capsule hydrOXYzine pamoate (VISTARIL) 50 mg capsule take 1 capsule by mouth three times a day if needed for anxiety ondansetron orally disintegrating (ZOFRAN ODT) 4 mg disintegrating tablet Take 4 mg by mouth three times daily as needed. No family history on file. Social History Tobacco Use Smoking status: Some Days Types: Pipe Passive exposure: Current Smokeless tobacco: Never Objective Physical Exam Vitals and nursing note reviewed. Constitutional: General: He is in acute distress (in visible pain, wincing with movements). Appearance: He is not toxic-appearing. Cardiovascular: Rate and Rhythm: Regular rhythm. Tachycardia present. Pulmonary: Effort: Pulmonary effort is normal. No respiratory distress. Breath sounds: Normal breath sounds. No wheezing or rales. Abdominal: Tenderness: There is abdominal tenderness in the left upper quadrant. Neurological: Mental Status: He is alert. ASSESSMENT/PLAN: 1. Tachycardia - ICD9: 785.0, ICD10: R00.0 (primary diagnosis) 2. Vomiting, unspecified vomiting type, unspecified whether nausea present - ICD9: 787.03, ICD10: R11.10 3. Upper back pain - ICD9: 724.5, ICD10: M54.9 - referred to ER for further evaluation and treatment. Concern for cholecystitis vs. Cardiac etiology. Patient offered ambulance transport but states he will drive himself to [place] [facility] or [place] [facility]. He is concerned to go directly to ER. Delfina Peters APRN.[employer] documented in this encounter [facility] Evaluation note Note Date & Type Note Facility documented in this encounter [facility] Instructions * Patient Instructions - Gemma Larios MA - 01/01/2018 9:11 AM EDT Please call your nurse, Marianne Solis at [phone] Option 5 if you need to leave a message for your doctor. You may also leave a message for your doctor through your [facility] account. For urgent needs, call [phone] Option # 2 to speak with the triage nurse during business hours. For urgent calls when the office is closed, call the office at [phone] option # 1 and you will be connected with [employer] personnel who will route your comments to the appropriate provider. For medication refills, please have your pharmacy fax the request to our office at [phone]. Please allow 3 business days for processing requests. If you have any labs drawn today and do not receive a call with your results within 7 days please call your nurse or you may view any test results on [facility] after the physician reviews them. If you do not have an active [facility] account you may use the code on this AVS to activate it. If you need assistance signing up please ask a dietitian or Hot Metal Mixer Operator for help. If you receive a survey in the mail about today's visit please take a moment to complete it and send it in. YOUR VOICE MATTERS. Please let us know any positive and/or negative experiences you had today at any part of your visit. YOUR VOICE = CHANGE Today your evaluated for your nausea and vomiting, medicines were prescribed for you to help with stomach upset. If his symptoms get worse last longer than several hours, or do not resolve space please seek emergency medical care immediately as you may require fluids and stronger medicines. If you start noticing increased amount of blood in your sputum/spit please seek emergency medical care. in this encounter* Patient Instructions* Darío Garrett MA - 10/08/2018 2:21 PM EST Please call your nurse, Marianne Solis at [phone] Option 5 if you need to leave a message for your doctor. You may also leave a message for your doctor through your [facility] account. For urgent needs, call [phone] Option # 2 to speak with the triage nurse during business hours. For urgent calls when the office is closed, call the office at [phone] option # 1 and you will be connected with [employer] personnel who will route your comments to the appropriate provider. Our goal is to provide you with exceptional patient care, and we strive to do this for every patient, every visit. Since we care about you and your experience, you may receive a patient satisfaction survey in the mail or via email from [employer]. We truly welcome your feedback and ask that you complete the survey to let us know how we are doing. If you have applied for HCAP/Medicaid, you may call [phone] to inquire about the status and orto have a letter mailed to you. For medication refills, please have your pharmacy fax the request to our office at [phone]. Please allow 3 business days for processing requests. If you have any labs drawn today and do not receive a call with your results within 7 days please call your nurse or you may view any test results on [facility] after the physician reviews them. If you do not have an active [facility] account you may use the code on this AVS to activate it. If you need assistance signing up please ask a dietitian or Hot Metal Mixer Operator for help. in this encounter* Patient Instructions* Darío Garrett MA - 01/01/2019 10:45 AM EDT The rash on your chest and back is called tinea versicolor: - Start treatment with fluconazole 200 mg once weekly for 4 weeks (4 doses total), take this medication on the same day every week. Can take this medication each Friday (Fungal Fridays) - Start treatment with ketoconazole 2% shampoo, use this medication 2-3 times weekly to wash the chest and back - F/U in 4 weeks The rash on your abdomen is allergic contact dermatitis most likely due to nickel: - Start treatment with triamcinolone 0.1% ointment twice daily until the rash resolves The rash on the back of your arms is called keratosis pilaris: - You can purchase on OTC product such as CeraVe with SA, Goldbond ultimate rough and bumpy or Amlactin to put on the skin at least once daily. Please call , if you need to leave a message for your doctor. You may also leave a message for your doctor through your [facility] account. For urgent needs, call [phone] Option # 2 tospeak with the triage nurse during business hours. For urgent calls when the office is closed, callthe office at [phone] option # 1 and you will be connected with [employer]ista personnel who will route your comments to the appropriate provider. For medication refills for DERM ONLY have your pharmacy fax request to [phone] If you need a prior authorization or any medication that has been prescribed is not covered please call me so that I can resolve this issue for you. Call the Derm Nurse Marianne [phone] #5 for questions on conerns Thank you for letting us care for you today. If you have applied for HCAP/Medicaid, you may call [phone] to inquire about the status and orto have a letter mailed to you. Our goal is to provide you with exceptional patient care, and we strive to do this for every patient, every visit. Since we care about you and your experience, you may receive a patient satisfaction survey in the mail or via email from [employer]. We truly welcome your feedback and ask that you complete the survey to let us know how we are doing. It was Great to see you today, If you have any questions about today's visit please feel free to ask. Thanks JESSY Menendez ([facility]) documented in this encounter Assessments Diagnosis Intractable cyclical vomitin g with nausea - Primary Encounter to establish care Diagnosis Intractable cyclical vomitin g with nausea - Primary Diagnosis Nausea and vomiting, intract ability of vomiting not specified, unspecified vomiting type - Primary Diagnosis Laceration of left hand with out foreign body, initial encounter - Primary Diagnosis Nausea and vomiting, intract ability of vomiting not specified, unspecified vomiting type - Primary Epigastric pain Abdominal pain, epigastric Diagnosis Intractable cyclical vomiting with nausea Diagnosis Dental infection- Primary Dentalgia Unspecified disorder of the teeth and supporting structures Diagnosis Tinea versicolor- Primary 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 Will call pt in am if accepted and appt date. * Merlin Bird MD - 12/04/2017 Learning About Cyclic Vomiting Syndrome What is it? An adult or child who has cyclic vomiting syndrome (CVS) has repeated bouts of severe vomiting and nausea. Between the vomiting episodes, the person's health is normal. The cause of CVS isn't known, but it may be related to migraine headaches. What happens when you have CVS? CVS causes severe nausea, vomiting, and drooling. You may not be able to walk or talk during an episode. You may look pale. You may have a fever and feel very tired and thirsty. Some people with CVS have belly pain and diarrhea. Bouts of vomiting can last for a few hours or a few days. People with this condition tend to have atypical pattern of attacks. For example, one person may have bouts of CVS 4 times a year and alwaysin the morning. Another person may have 8 bouts a year and always in the evening. Some people with CVS have triggers that set off the vomiting. People have reported an infection, such as a cold, as a trigger. Other triggers include stress, menstrual cycles, and certain foods like chocolate or cheese. Children tend to have more triggers than adults do. How is CVS treated? Treatment is centered around easing the nausea and vomiting. The doctor may prescribe medicine. During very bad bouts of vomiting, your doctor may want you to stay in the hospital for a while. You may get fluids through a vein (IV) to prevent dehydration. Dehydration can be serious. Your body needs fluids to make enough blood. Without a good supply of blood, vital organs such as the heart andbrain can't work as well as they should. When should you call for help? Call your doctor now or seek immediate medical care if: You have new or worse belly pain. You have a fever. You are vomiting. You cannot pass stools or gas. You have symptoms of dehydration, such as: Dry eyes and a dry mouth. Passing only a little urine. Feeling thirstier than usual. Watch closely for changes in your health, and be sure to contact your doctor if you have any problems. Follow-up care is a hall part of your treatment and safety. Be sure to make and go to all appointments, and call your doctor if you are having problems. It's also a good idea to know your test resultsand keep a list of the medicines you take. Where can you learn more? Log into your personal health record on [email or web address] and enter G167 in the Education box to learn more about Learning About Cyclic Vomiting Syndrome. Current as of: December 20, 2016 Content Version: 11.6 7493-6247 Etacts. Care instructions adapted under license by your healthcare professional. If you have questions about a medical condition or this instruction, always ask your healthcare professional. [employer] disclaims any warranty or liability for your use of this information. in this encounter* Bridget Adan, CLAY MIXER - 09/11/2017 Nausea and Vomiting: Care Instructions Your Care Instructions When you are nauseated, you may feel weak and sweaty and notice a lot of saliva in your mouth. Nausea often leads to vomiting. Most of the time you do not need to worry about nausea and vomiting, butthey can be signs of other illnesses. Two common causes of nausea and vomiting are stomach flu and food poisoning. Nausea and vomiting from viral stomach flu will usually start to improve within 24 hours. Nausea and vomiting from food poisoning may last from 12 to 48 hours. The doctor has checked you carefully, but problems can develop later. If you notice any problems ornew symptoms, get medical treatment right away. Follow-up care is a hall part of your treatment and safety. Be sure to make and go to all appointments, and call your doctor if you are having problems. It's also a good idea to know your test resultsand keep a list of the medicines you take. How can you care for yourself at home? To prevent dehydration, drink plenty of fluids, enough so that your urine is light yellow or clear like water. Choose water and other caffeine-free clear liquids until you feel better. If you have kidney, heart, or liver disease and have to limit fluids, talk with your doctor before you increase the amount of fluids you drink. Rest in bed until you feel better. When you are able to eat, try clear soups, mild foods, and liquids until all symptoms are gone for 12 to 48 hours. Other good choices include dry toast, crackers, cooked cereal, and gelatin dessert, such as Jell-O. When should you call for help? Call 911 anytime you think you may need emergency care. For example, call if: You passed out (lost consciousness). Call your doctor now or seek immediate medical care if: You have symptoms of dehydration, such as: Dry eyes and a dry mouth. Passing only a little dark urine. Feeling thirstier than usual. You have new or worsening belly pain. You have a new or higher fever. You vomit blood or what looks like coffee grounds. Watch closely for changes in your health, and be sure to contact your doctor if: You have ongoing nausea and vomiting. Your vomiting is getting worse. Your vomiting lasts longer than 2 days. You are not getting better as expected. Where can you learn more? Log into your personal health record on [email or web address] and enter H591 in the Education box to learn more about Nausea and Vomiting: Care Instructions. Current as of: January 05, 2016 Content Version: 11.2 6759-7600 Etacts. Care instructions adapted under license by your healthcare professional. If you have questions about a medical condition or this instruction, always ask your healthcare professional. Et[employer] disclaims any warranty or liability for your use of this information. in this encounter* John Broussard, CLAY MIXER - 03/03/2018 Formatting of this note may be different from the original. Cuts on the Hand Closed With Stitches: Care Instructions Your Care Instructions A cut on your hand can be on your fingers, your thumb, or the front or back of your hand. Sometimesa cut can injure the tendons, blood vessels, or nerves of your hand. The doctor used stitches to close the cut. Using stitches also helps the cut heal and reduces scarring. The doctor may have given you a splint to help prevent you from moving your hand, fingers, or thumb. If the cut went deep and through the skin, the doctor put in two layers of stitches. The deeper layer brings the deep part of the cut together. These stitches will dissolve and don't need to be removed. The stitches in the upper layer are the ones you see on the cut. You will probably have a bandage. You will need to have the stitches removed, usually in 7 to 14 days. The doctor may suggest that you see a hand specialist if the cut is very deep or if you have trouble moving your fingers or have less feeling in your hand. The doctor has checked you carefully, but problems can develop later. If you notice any problems ornew symptoms, get medical treatment right away. Follow-up care is a hall part of your treatment and safety. Be sure to make and go to all appointments, and call your doctor if you are having problems. It's also a good idea to know your test resultsand keep a list of the medicines you take. How can you care for yourself at home? Keep the cut dry for the first 24 to 48 hours. After this, you can shower if your doctor okays it. Pat the cut dry. Don't soak the cut, such as in a bathtub. Your doctor will tell you when it's safe to get the cut wet. If your doctor told you how to care for your cut, follow your doctor's instructions. If you did notget instructions, follow this general advice: After the first 24 to 48 hours, wash around the cut with clean water 2 times a day. Don't use hydrogen peroxide or alcohol, which can slow healing. You may cover the cut with a thin layer of petroleum jelly, such as Vaseline, and a nonstick bandage. Apply more petroleum jelly and replace the bandage as needed. Prop up the sore hand on a pillow anytime you sit or lie down during the next 3 days. Try to keep it above the level of your heart. This will help reduce swelling. Avoid any activity that could cause your cut to reopen. Do not remove the stitches on your own. Your doctor will tell you when to come back to have the stitches removed. Be safe with medicines. Take pain medicines exactly as directed. If the doctor gave you a prescription medicine for pain, take it as prescribed. If you are not taking a prescription pain medicine, ask your doctor if you can take an swsg-cfm-cbosifc medicine. When should you call for help? Call your doctor now or seek immediate medical care if: ? You have new pain, or your pain gets worse. ? The skin near the cut is cold or pale or changes color. ? You have tingling, weakness, or numbness near the cut. ? The cut starts to bleed, and blood soaks through the bandage. Oozing small amounts of blood is normal. ? You have trouble moving the area of the hand near the cut. ? You have symptoms of infection, such as: Increased pain, swelling, warmth, or redness around the cut. Red streaks leading from the cut. Pus draining from the cut. A fever. ?Watch closely for changes in your health, and be sure to contact your doctor if: ? You do not get better as expected. Where can you learn more? Log into your personal health record on [email or web address] and enter T250 in the Education box to learn more about Cuts on the Hand Closed With Stitches: Care Instructions. Current as of: June 30, 2017 Content Version: 11.6 6965-9063 Etacts. Care instructions adapted under license by your healthcare professional. If you have questions about a medical condition or this instruction, always ask your healthcare professional. [employer] disclaims any warranty or liability for your use of this information. in this encounter The following attachments cannot be sent through Care Everywhere. * ABDOMINAL PAIN (ERITREAN) * NAUSEA AND VOMITING (ERITREAN) * DRUG USE: MARIJUANA (ERITREAN) * CANNABIS USE DISORDER: GENERAL INFO (ERITREAN) in this encounter* Attachments The following attachments cannot be sent through Care Everywhere. * Tooth and Gum Pain ([place]) documented in this encounter Summary Purpose Family History No Family History Records FoundNo Family History Records FoundNo Family History Records FoundNo Family History Records FoundNo Family History Records FoundNo Family History Records Found Advance Directives No Advanced Directives Records FoundLatest Code Status on File Code Status Date Activated Date Inactivated Comments Full Code - Unverified 09/10/2017 5:49 PM 12/04/2017 11: 51 AM Documents on File Type Date Recorded Patient Wrapper Sorter Expl anation Advance Directives and Daisy gorman Will 12/13/2018 7:48 PM History of Present Illness * Dieter Barrios MD - 10/08/2018 3:13 PM EST [facility] Out[facility] Visit Note Patient Name: Héctor Conway : 1995 Assessment and Plan Héctor Conway is a 23 y.o. male with PMH of cannabis hyperemesis syndrome, migraines, chronic diarrhea, GERD. He presents today for evaluation of endoscopy in the setting of ongoing nausea, vomiting, diarrhea, weight loss. Nausea and vomiting Unclear etiology. Possibly due to cannabis hyperemesis syndrome or cyclic vomiting syndrome. Atopicgastroenteritis should also be considered given exacerbating foods and rash that consistently precedes symptom onset. Uncontrolled gastritis may also be contributing though would not likely explain severity of symptoms. Abdominal angioedema also possible. - Cyclic, episodic for past 3 years. Episodes occur ~q1 month and last for 1-3 days with vomiting q30-45 minutes. Associated with severe epigastric abdominal pain and preceded by hives . Exacerbating factors include fried foods and EtOH. - Has presented to ED x4 since 2017. EGD at [facility] (04/2017) significant only for mild chronic gastritis, negative H. pylori. CT abd/pelv x2 (2017, 2018) normal. Most recent lipase, LFTs, BMP, CBC normal. UDS + cannabinoids. Continues to smoke marijuana regularly. - Plan: Increase Protonix to 40 mg BID. Follow-up GI clinic in 2 months. If cyclic vomiting is considered more likely once below studies are completed, may consider migraine treatment to lizabeth/alleviate these episodes. Diarrhea Possibly due to malabsorptive process. Celiac disease should be ruled out. Infectious etiology unlikely given chronicity of symptoms. - Chronic, sometimes coffee-ground / black , loose, 3-7 BMs daily. With associated objective weight loss ~30 lbs in one year. No NSAID abuse. Prior workup as above. - Plan: EGD with duodenal biopsy. Colonoscopy with colonic biopsy. Labs - ESR / CRP, stool PCR, TTGIgA, fecal fat. Rash Unclear etiology. Likely atopic in nature given association with foods and onset of nausea, vomiting after rash development. - There is a confluent, macular, erythematous rash at the base of the neck that covers the shoulders. - Plan: Skin biopsy for completeness to further evaluate etiology. Discussed with: Dr. Quinton Barrios MD PGY-1 Pager #: [phone] Chief Complaint: Nausea, vomiting, diarrhea, weight loss History of Present Illness Héctor Conway is a 23 y.o. male with PMH of cannabis hyperemesis syndrome, migraines, chronic diarrhea, GERD. He presents today for evaluation of endoscopy in the setting of ongoing nausea, vomiting, diarrhea, weight loss. Patient states that for the past 3 years or so, he has had intermittent (q1 month) episodes of nausea and vomiting. These episodes usually last 1-3 days and result in vomiting q30-45 minutes. He reports his most recent episode was this week from Friday - Friday. The nausea and vomiting are accompanied by epigastric pain that he states is the most extreme pain (he) has ever been in. Of note, the patient is able to predict when these episodes will begin as he consistently developed a rash prior to episode onset. He describes the rash as hives that are mostly localized to his torso. He has also noticed an association of these episodes with fried foods and alcohol. These episodes were previously attributed to cannabis hyperemesis syndrome; however, the patient reports that he has previously gone 4-5 months without marijuana use but still had ~q1 month episodes of nausea/vomiting. He has since started smoking MJ again. He has had an objective weight loss of ~30 lbs in the past year. Patient also reports chronic diarrhea that is sometimes coffee-ground / black and that is often loosenot watery. He consistently has between 3-7 bowel movements daily. Denies bloody emesis or bright red blood per rectum. Denies fevers, chills, chest pain, shortness of breath. PMH/PSH/SH/FH: Past Medical History: Diagnosis Date Cannabis hyperemesis syndrome concurrent with and due to cannabis dependence (HCC) Migraines Past Surgical History: Procedure Laterality Date ESOPHAGOGASTRODUODENOSCOPY SHOULDER ARTHROSCOPY Right No family history on file. Social History Socioeconomic History Marital status: Single Spouse name: Not on file Number of children: Not on file Years of education: Not on file Highest education level: Not on file Social Needs Financial resource strain: Not on file Food insecurity - worry: Not on file Food insecurity - inability: Not on file Transportation needs - medical: Not on file Transportation needs - non-medical: Not on file Occupational History Not on file Tobacco Use Smoking status: Current Every Day Smoker Packs/day: 0.10 Types: Cigarettes Smokeless tobacco: Never Used Substance and Sexual Activity Alcohol use: Yes Comment: occ Drug use: Yes Types: Marijuana Sexual activity: Not on file Other Topics Concern Not on file Social History Narrative Not on file Allergy Information:I have reviewed the patient's allergies. Patient has no known allergies. Patient Review of Systems Review of Systems Constitutional: Positive for fatigue and unexpected weight change. Negative for chills and fever. Respiratory: Negative for cough and shortness of breath. Gastrointestinal: Positive for abdominal pain, diarrhea, nausea and vomiting. Negative for blood instool and constipation. Skin: Positive for rash (hives preceding nausea/vomiting episodes). Negative for pallor. Neurological: Negative for dizziness and light-headedness. Physical Exam Vital Signs: BP 118/72 Pulse 83 Temp 98.6 F (37 C) (Oral) Wt 87.5 kg (193 lb) BMI 27.69 kg/m Physical Exam Constitutional: He appears well-developed and well-nourished. Cardiovascular: Normal rate, regular rhythm, normal heart sounds and intact distal pulses. Pulmonary/Chest: Effort normal. He has no wheezes. He has no rales. Abdominal: Soft. There is tenderness (diffuse, worst in epigastrium). There is no guarding. Skin: Skin is warm and dry. There is a confluent macular erythematous rash that surrounds the base of the neck and covers the shoulders. Additional Data - Labs/ Radiology/ etc Reviewed Laboratory 10/08/18 3:24 PM Microbiology 10/08/18 3:24 PM Pathology 10/08/18 3:24 PM Radiology 10/08/18 3:24 PM Cardiology 10/08/18 3:24 PM Medications 10/08/18 3:24 PM Transcriptions 10/08/18 3:24 PM No results found for: HGBA1C Lab Results Component Value Date WBC 10.82 12/04/2017 HGB 15.1 12/04/2017 HCT 43.0 12/04/2017 MCV 82.1 12/04/2017 PLT 239 12/04/2017 Lab Results Component Value Date NA 140 12/04/2017 K 3.8 12/04/2017 CL 101 12/04/2017 Lab Results Component Value Date CREATININE 0.93 12/04/2017 BUN 9 12/04/2017 NA 140 12/04/2017 K 3.8 12/04/2017 CL 101 12/04/2017 BICARB 22 12/04/2017 Creatinine Date Value Ref Range Status 12/04/2017 0.93 0.50 - 1.30 mg/dL Final 09/10/2017 1.02 0.50 - 1.30 mg/dL Final 06/02/2017 1.00 0.50 - 1.30 mg/dL Final HomeMedications Héctor Conway Home Medication Instructions Prior to Surgery NOHEMY: Printed on:10/08/18 0583 Medication Information Take last dose on Take the morning of surgery Comment(s) dicyclomine (BENTYL) 10 MG capsule Take 1 (one) capsule (10 mg total) by mouth 3 (three) times a day as needed. yvnrgeub-nhwdeuhhz-rvwjugkkgjuey (MAXITROL) 3.5mg/mL-10,000 unit/mL-0.1 % ophthalmic suspension Apply 1 drop to eye 2 (two) times a day. ondansetron (ZOFRAN) 4 MG tablet Take 1 (one) tablet (4 mg total) by mouth every 8 (eight) hours as needed for nausea. pantoprazole (PROTONIX) 40 MG tablet Take 1 (one) tablet (40 mg total) by mouth daily. in this encounter* Miller Birmingham DO - 01/01/2019 11:41 AM EDT I have reviewed the history, physical, diagnosis and care plan with the resident physician, Rubens Sutton DO. I was present for all aspects of procedures performed. I confirm the assessment and treatment plan: Diagnoses and all orders for this visit: Tinea versicolor - Ambulatory referral to Dermatology - fluconazole (DIFLUCAN) 200 MG tablet; Take 1 (one) tablet (200 mg total) by mouth once a week . Use for a total of 4 weeks (4 doses) . - ketoconazole (NIZORAL) 2 % shampoo; Apply topically 2-3 times weekly, use to wash the chest and back. Leave on for 5-10 minutes and then rinse. . Allergic contact dermatitis due to metals - triamcinolone (KENALOG) 0.1 % ointment; Apply topically 2 (two) times a day . Apply to rough scaly patch on the lower abdomen until resolved . Keratosis pilaris * Rubens Sutton DO - 01/01/2019 11:14 AM EDT Héctor Conway is a 23 y.o. male who presents for a rash. He mentions that he has a rash on his chest and back that has been present for 1.5 years and has progressively expanded. He denies any preceding events before the rash developed. The rash tends to flare when he vomits or feels nauseated, has a hx of cyclical vomiting syndrome. He mentions it's occasionally itchy but not painful. It doestend to darken significantly in the sun. Has not tried any previous treatments. He also developed a rash on his lower abdomen about 2 years ago. He states that this rash can be painful. It developed after he started wearing different types of belts/belt mercy. He also mentions some bumps on the back of his arms that have been present for multiple years. Theyare not symptomatic but he was unsure of the etiology. Location: Upper arms, chest, back and lower abdomen Course: Worsening, progressively expanding Symptoms: Itch? Things previously tried: None? Duration: 1.5 years for the rash on his chest, 2 years for the rash on his lower abdomen Review of Systems Constitutional: No fever, chills or fatigue Skin: Other new or changing growths on skin: Yes Past Medical History: Diagnosis Date Cannabis hyperemesis syndrome concurrent with and due to cannabis dependence (HCC) Migraines No past medical history pertinent negatives. Cancer-related family history is not on file. Allergies and Meds: Reviewed in electronic medical record Physical Exam The following areas were within normal limits except as noted otherwise in this note: Upper body: Oriented x 3/ alert; development/nourishment; mood/affect; scalp/hair; face; eyes/eyelids; lips; neck; digits/nails; right arm; left arm; chest; abdomen; back. Pertinent PE: - Erythematous circinate scaly papules and plaques with inducible scale located on the chest, back and upper arms - Erythematous plaque with overlying lichenification and scattered hyperkeratotic papules at the periphery located on the central lower abdomen - Follicular based whitish red papules bilateral located on the bilateral posterior upper arms Assessment & Plan 1. *Tinea versicolor - clinically. Etiology explained. Treatment options with emphasis on risk/benefits discussed. - Start treatment with fluconazole 200 mg once weekly for 4 weeks (4 doses total) - Start treatment with ketoconazole 2% shampoo, use this medication 2-3 times weekly to wash the chest and back - F/U in 4 weeks 2. Allergic Contact Dermatitis - new problem. Most likely secondary to nickel. Etiology and possible chronic nature explained. Avoid possible triggers including belt mercy that can contain nickel. Counseled that he can purchase a kit that can test products for nickel. Treatment options with emphasis on benefits and possible common side effects explained - Start treatment with triamcinolone 0.1% ointment BID until resolved - Counseled that he can proceed with patch testing in the future to determine specific allergens. Counseled that he needs to stop wearing belts/belt mercy for the next 4 weeks to see if the area improves with treatment 3. Keratosis pilaris - new problem. Etiology explained. Treatment options with emphasis on risk/benefits discussed. - Start treatment with an OTC exfoliative moisturizer such as Amlactin, CeraVe with SA or Goldbond Rough and Bumpy once to twice daily documented in this encounter Additional Source Comments ED Notes - Antonietta Restrepo RN - 12/04/2017 4:02 PM EDTED Update Note - Merlin Bird MD - 12/04/2017 3:06 PM EDTED Notes - Emelina Erickson RN - 12/04/2017 2:58 PM EDT Miscellaneous Notes (unrecog nized section and content) Aeronautical Research Engineer into room at this time. Jack Gorman RN states that he gave d./c papers. Room empty at this time ADDENDUM 22-year-old comes in with cyclical vomiting syndrome. His specific gravity is only 1.009. No evidence of significant dehydration. We have already hydrated the patient up. Feel that he can be released on Zofran and, even though he wants to be admitted, I feel he can be outpatient followup. Instructions were to stop all of his marijuana which he has not done for years, and should be released for outpatient followup with his [facility] physician. This RN currently in another patient's room and hears this patient next door dry heaving loudly multiple times and trying to vomit. Dr. Bird notified. Plan is still for patient to be discharged home with anti-nausea meds. Patient made aware. mechanical car checker at patient's bedside. This RN administered patient his medications. Patient's Mother also at the bedside to take patient home. Patient is upset and states, I am really pissed off at that doctor. Patient's Mother states she needs to leave and has to come back to get patient later because she has to go to work. Patient's Mother leaves and patient asks this RN if he is allowed to have ice chips. Patient given some ice chips. Patient requesting to speak to Dr. Bird. Dr. Bird notified. Patient transported to CT scan. Formatting of this note may be different from the original. PCP - Physician No [id number] Chief Complaint Patient presents with Abdominal Pain Diarrhea Emesis Nausea HPI A 22-year-old comes in complaining of abdominal pain. It is sort of diffuse. Nothing did seem to make it better or worse. Started over last several days. States he has had this in the past for many years and they have never been able to figure out why he has this pain. He states he goes to multiple emergency departments and they have never told him what is wrong. He has been to [facility] and has been scoped. They felt that a lot of his vomiting is due to his marijuana use. He came in for further evaluation. No melena, hematochezia. Is having some loose stools. No hematemesis. No fever. No localization of the pain. Review of Systems CONSTITUTIONAL: No unexpected weight change; HENT: No drooling; EYES: No discharge; RESPIRATORY: No stridor; ENDOCRINE: No polyphagia; ALLERGY/IMMUN: No hives; SKIN: No color changes; NEUROLOGIC: No new face asymmetry; HEMATOLOGIC: No new easy bruising; PSYCH: No self injury Past Medical History Past Medical History: Diagnosis Date Migraines Multiple gastric ulcers sts ulcers came back clear Past Surgical History Past Surgical History: Procedure Laterality Date ESOPHAGOGASTRODUODENOSCOPY SHOULDER ARTHROSCOPY Right Social History Social History Social History Marital status: Single Spouse name: N/A Number of children: N/A Years of education: N/A Occupational History Not on file. Social History Main Topics Smoking status: Current Every Day Smoker Packs/day: 0.10 Types: Cigarettes Smokeless tobacco: Never Used Alcohol use Yes Comment: occ Drug use: Yes Types: Marijuana Sexual activity: Not on file Other Topics Concern Not on file Social History Narrative No narrative on file Family history History reviewed. No pertinent family history. Physical Exam Initial Vital Signs BP (!) 161/107 (BP Location: Right arm, Patient Position: Sitting) Pulse 66 Temp 98 ?F (36.7 ?C) (Oral) Resp (!) 26 Ht 5' 10 Wt 100.3 kg (221 lb 3.2 oz) SpO2 98% BMI 31.74 kg/m Vital Signs During ED Visit (as charted by nursing) Patient Vitals for the past 24 hrs: BP Temp Temp src Pulse Resp SpO2 Height Weight 12/04/17 1155 (!) 161/107 98 ?F (36.7 ?C) Oral 66 (!) 26 98 % 5' 10 100.3 kg (221 lb 3.2 oz) PHYSICAL EXAM General: 22-year-old arrived awake, alert, conversive with vital signs noted. Nursing notes reviewed. Eyes: No draining or discharge. Nose: No drainage or discharge. Throat: Airway was intact. Midline trachea. Lungs: Clear. Cardiovascular: Normal S1, S2. No murmurs. Abdomen: Soft, mildly tender diffusely. No guarding or rebound. Joints: Nontender. Skin: Warm and dry without rash. Neuro: Intact. Labs Reviewed CBC AND DIFFERENTIAL Narrative: The following orders were created for panel order CBC w/ Diff. Procedure Abnormality Status --------- ------ CBC Auto Differential[[id number]] In process Please view results for these tests on the individual orders. BASIC METABOLIC PANEL LIPASE HEPATIC FUNCTION PANEL URINALYSIS DRUGS OF ABUSE SCREEN, URINE RAINBOW DRAW Narrative: The following orders were created for panel order [place] Draw. Procedure Abnormality Status --------- ------ Gold Top[[id number]] In process Light Blue Top[[id number]] In process [place] Top[[id number]] In process [place] Top[[id number]] In process Please view results for these tests on the individual orders. GOLD TOP LIGHT BLUE TOP [place] TOP PINK TOP CBC WITH AUTO DIFFERENTIAL Radiographic Imaging (if any) During ED Visit CT Abdomen Pelvis Without Contrast (Results Pending) MDM MEDICAL DECISION MAKING Patient arrived with his probable cyclical vomiting syndrome for 2 weeks. We went ahead and did a CAT scan, which showed no acute abnormalities. The lab work showed the patient still to be positive for marijuana. The patient states his usual treatment for hot showers to try to help with the cyclical vomiting syndrome are not working any longer. I explained extensively to the patient that the specialist at [facility] and the other ERs have told him not to do marijuana, that is contributing this cyclical vomiting syndrome and abdominal pain, but he continues to persist to do marijuana and these are the consequences of doing that. Will write for [employer], and he will be released for outpatient followup. CLINICAL IMPRESSION 1.Abdominal pain, vomiting. 2.Cyclical vomiting syndrome. 3.Marijuana abuse. DISPOSITION Release the patient. Follow with his [facility] doctor. No diagnosis found. Merlin Bird MD 12/04/17 1412 Merlin Bird MD 12/04/17 1517 Pt arrives with complaints of abdominal cramping with n/v/d for 2 weeksin this encounter Problem: Actual or potential alteration in health Goal: Knowledge of Enviroment Outcome: Completed Date Met: 09/10/17 Patient oriented to Observation Unit: Yes Patient oriented to room: Yes Plan of care reviewed with patient: yes Extended Emergency Contact Information Primary Emergency Contact: Leyla Conway [facility] [place] Relation: Mother Primary Care Physician: Physician No, Needs List Preferred Pharmacy: [facility] [address] Plan for discharge reviewed: Yes How will patient get home: Dad Discharge suite reviewed: Yes Per patient's father, pt had another emesis at this time. Dr. Rae notified and to bedside to see pt and patient's father at this time. Formatting of this note may be different from the original. ED PROVIDER NOTE [facility] NAME: Héctor Conway AGE: 22 y.o. : 1995 VISIT DATE: 09/10/2017 CSN: [id number] PCP: Physician No Chief Complaint Patient presents with Emesis Nausea Abdominal Pain HPI 22-year-old male with a history of chronic abdominal pain presenting with acute on chronic abdominal pain. Patient states that he has had intermittent abdominal pain, nausea, and vomiting for the past 3-4 years. He reports he gets abdominal pain and vomiting flares once a month. Patient reports that his current flare is similar in nature to previous flares he is on the past. He does endorse that he smokes marijuana frequently. He reports for the past 5 days he has had abdominal spasms/cramping, nausea, and vomiting. He states his symptoms have been identical in the past. Denies any fevers or chills. Denies any diarrhea. Patient reports that typically a hot shower will make his symptoms and improve however it did not work this time. He states he feels dehydrated. He has not been able to tolerate any p.o. intake. Denies any other symptoms today. Denies any chest pain or shortness of breath. Denies any lightheadedness or dizziness. Denies any urinary symptoms including dysuria, increased frequency, urgency or hematuria. Patient states he had an upper endoscopy in the past that was unremarkable. He states he also did a gastric emptying study however was inconclusive. Patient does not closely follow with GI. He denies any other complaints. Past Medical History: Diagnosis Date Migraines Multiple gastric ulcers sts ulcers came back clear Past Surgical History: Procedure Laterality Date ESOPHAGOGASTRODUODENOSCOPY SHOULDER ARTHROSCOPY Right History reviewed. No pertinent family history. Social History Social History Marital status: Single Spouse name: N/A Number of children: N/A Years of education: N/A Occupational History Not on file. Social History Main Topics Smoking status: Current Every Day Smoker Packs/day: 0.10 Types: Cigarettes Smokeless tobacco: Never Used Alcohol use Yes Comment: occ Drug use: Yes Types: Marijuana Sexual activity: Not on file Other Topics Concern Not on file Social History Narrative No narrative on file Previous Medications DICYCLOMINE (BENTYL) 10 MG CAPSULE Take 1 (one) capsule (10 mg total) by mouth 3 (three) times a day as needed. TVINITYO-[id number]-[id number] (MAXITROL) 3.5MG/ML-10,000 UNIT/ML-0.1 % OPHTHALMIC SUSPENSION Apply 1 drop to eye 2 (two) times a day. ONDANSETRON (ZOFRAN) 4 MG TABLET Take 1 (one) tablet (4 mg total) by mouth every 6 (six) hours as needed for nausea. No Known Allergies Review of Systems Constitutional: Negative for activity change, chills and fever. HENT: Negative for congestion, rhinorrhea and sore throat. Eyes: Negative for pain, redness and visual disturbance. Respiratory: Negative for cough and shortness of breath. Cardiovascular: Negative for chest pain. Gastrointestinal: Positive for abdominal pain, nausea and vomiting. Negative for constipation and diarrhea. Genitourinary: Negative for decreased urine volume, dysuria, flank pain, frequency and urgency. Musculoskeletal: Negative for back pain and neck pain. Skin: Negative for rash. Allergic/Immunologic: Negative for immunocompromised state. Neurological: Negative for dizziness, weakness, light-headedness, numbness and headaches. Hematological: Negative for adenopathy. Psychiatric/Behavioral: Negative for agitation and confusion. Patient Vitals for the past 24 hrs: BP Temp Temp src Pulse Resp SpO2 09/10/17 1513 122/78 - - - - - 09/10/17 1512 - - - - - 96 % 09/10/17 1432 (!) 168/108 - - 75 16 99 % 09/10/17 1203 (!) 139/103 98.4 ?F (36.9 ?C) Oral 79 16 98 % Physical Exam Constitutional: He is oriented to person, place, and time. He appears well- developed and well-nourished. No distress. Patient appears well, non-toxic appearing, NAD. HENT: Head: Normocephalic and atraumatic. Nose: Nose normal. Mouth/Throat: No oropharyngeal exudate. MM dry. Eyes: EOM are normal. Pupils are equal, round, and reactive to light. Right eye exhibits no discharge. Left eye exhibits no discharge. No scleral icterus. Neck: Normal range of motion. Neck supple. Cardiovascular: Normal rate, regular rhythm, normal heart sounds and intact distal pulses. Exam reveals no gallop and no friction rub. No murmur heard. Pulmonary/Chest: Effort normal and breath sounds normal. No respiratory distress. He has no wheezes. He has no rales. He exhibits no tenderness. Abdominal: Soft. Bowel sounds are normal. He exhibits no distension and no mass. There is tenderness. No hernia. Mild diffuse abdominal tenderness noted, no peritoneal signs, soft, no rebound or guarding. Lymphadenopathy: He has no cervical adenopathy. Neurological: He is alert and oriented to person, place, and time. He exhibits normal muscle tone. Skin: Skin is warm. No rash noted. He is not diaphoretic. Laboratory & Radiographic Imaging (if done): Results for orders placed or performed during the hospital encounter of 09/10/17 BMP Result Value Ref Range Sodium 140 135 - 145 mmol/L Potassium 3.8 3.5 - 5.1 mmol/L Chloride 100 98 - 108 mmol/L Bicarbonate 22 21 - 32 mmol/L Anion Gap 22 (H) 10 - 20 mmol/L Glucose 144 (H) 65 - 99 mg/dL BUN 14 8 - 25 mg/dL Creatinine 1.02 0.50 - 1.30 mg/dL eGFR 103 >=60 mL/min/1.73 m2 BUN/Creatinine Ratio 13.7 10.0 - 20.0 Calcium 10.2 8.4 - 10.2 mg/dL Lipase Result Value Ref Range Lipase 23 15 - 65 U/L Urinalysis Result Value Ref Range Color, Urine Yellow Colorless, Yellow Clarity, Urine Clear Clear Specific [place] 1.018 1.005 - 1.025 pH, Urine 8.0 (H) 5.0 - 7.0 Protein, Urine Negative Negative mg/dL Glucose, Urine Negative Negative mg/dL Ketones, Urine Negative Negative mg/dL Bilirubin, Urine Negative Negative Urobilinogen, Urine <2.0 <2.0 mg/dL Blood, Urine Negative Negative Nitrite, Urine Negative Negative Leukocyte Esterase, Urine Negative Negative RBCs, Urine 2 0 - 3 /hpf Bacteria, Urine None Seen None Seen /hpf Squamous Epithelial <1 0 - 4 /hpf Hepatic Function Panel Result Value Ref Range Total Protein 8.4 (H) 6.0 - 8.0 g/dL Albumin 4.9 3.2 - 5.2 g/dL Total Bilirubin 0.5 0.0 - 1.3 mg/dL Bilirubin, Direct <0.1 0.0 - 0.4 mg/dL Alkaline Phosphatase 71 40 - 140 U/L AST 33 0 - 45 U/L ALT 41 (H) 0 - 40 U/L Gold Top Result Value Ref Range Extra Tube Hold for add-ons. Light Blue Top Result Value Ref Range Extra Tube Hold for add-ons. [place] Top Result Value Ref Range Extra Tube Hold for add-ons. CBC Auto Differential Result Value Ref Range WBC 10.00 4.50 - 11.00 K/mcL RBC 5.91 (H) 4.50 - 5.90 M/mcL Hemoglobin 17.6 (H) 13.5 - 17.5 g/dL Hematocrit 48.7 41.0 - 53.0 % MCV 82.4 80.0 - 100.0 fL MCH 29.8 26.0 - 34.0 pg MCHC 36.1 31.0 - 37.0 g/dL Platelets 250 150 - 400 K/mcL RDW - CV 12.6 11.6 - 14.8 % MPV 11.5 9.0 - 15.5 fL Neutrophils 84.6 % Lymphocytes 10.7 % Monocytes 3.8 % Eosinophils 0.0 % Basophils 0.5 % IG Percent 0.40 % Neutrophils Abs 8.46 (H) 1.70 - 7.00 K/mcL Lymphocytes Abs 1.07 0.90 - 4.00 K/mcL Monocytes Abs 0.38 0.30 - 0.90 K/mcL Eosinophils Abs 0.00 0.00 - 0.50 K/mcL Basophils Abs 0.05 0.00 - 0.30 K/mcL IG Absolute 0.04 0.00 - 0.30 K/mcL Nucleated RBC 0.0 % Nucleated RBC Abs 0.00 0.00 - 0.00 K/mcL No orders to display Procedures MDM ED Course 22-year-old male with a history of chronic abdominal pain presenting with acute on chronic abdominal pain. Patient states that he has had intermittent abdominal pain, nausea, and vomiting for the past 3-4 years. He reports he gets abdominal pain and vomiting flares once a month. Patient reports that his current flare is similar in nature to previous flares he is on the past. He does endorse that he smokes marijuana frequently. He reports for the past 5 days he has had abdominal spasms/cramping, nausea, and vomiting. He states his symptoms have been identical in the past. Denies any fevers or chills. Denies any diarrhea. Patient reports that typically a hot shower will make his symptoms and improve however it did not work this time. He states he feels dehydrated. He has not been able to tolerate any p.o. Intake. On exam, patient is nontoxic-appearing however he is actively vomiting. His abdomen is benign with no significant reproducible tenderness. His mucous membranes are dry. Patient was already treated with Zofran, Benadryl, Reglan and GI cocktail with some mild improvement in his symptoms. I did treated with 2 L of IV fluid. He has continued to vomit while in the emergency department. His abdomen does not require any CT imaging at this time. He does report a history of marijuana use which is likely cyclic vomiting. Patient will be admitted to observation for symptomatic treatment. He was counseled on the importance of refraining from smoking marijuana. His father was present at the bedside. This is been an ongoing issue for him. Will monitor him closely for now to he is admitted to the [facility] service. His lab work was all reassuring. Will monitor closely for now until he is admitted. The patient has been informed that they may have pre-hypertension or hypertension based on a blood pressure reading in the Emergency Department. I recommend that the patient call the primary care provider listed on their discharge instructions or a physician of their choice as soon as possible to arrange follow-up in the next 4 weeks for further evaluation of possible pre-hypertension or hypertension. . Clinical Impression: SNOMED CT(R) 1. Nausea and vomiting, intractability of vomiting not specified, unspecified vomiting type NAUSEA AND VOMITING Follow-up Information Follow-up information has not been specified. Contact information for after-discharge care Follow-up information has not been specified. New Prescriptions No medications on file (Please note that portions of this note may have been completed with a voice recognition software. Efforts were made to correct any errors, but occasionally words are mis-transcribed.) Monet Rae MD 09/10/17 1728 Pt arrives with 3 days nausea and vomiting, denies diarrhea, and abdominal pain, reports long history of same without diagnosisin this encounter Wound drsd with atb ointment and kerlix wrap for comfort Associated Order(s): LACERATION REPAIR Formatting of this note may be different from the original. 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 No numbness or tingling. No trouble with range of motion. He is right-hand dominant. Initially stated he was unsure of his last tetanus, but revises that to tell me that it was completed 2 years ago. Past Medical History Past Medical History: Diagnosis Date Cannabis hyperemesis syndrome concurrent with and due to cannabis dependence (HCC) Migraines Past Surgical History Past Surgical History: Procedure Laterality Date ESOPHAGOGASTRODUODENOSCOPY SHOULDER ARTHROSCOPY Right Family History History reviewed. No pertinent family history. Review of Systems All systems reviewed negative except as mentioned above. Physical Exam Vital Signs During ED Visit (as charted by nursing) Patient Vitals for the past 24 hrs: BP Temp Temp src Pulse Resp SpO2 Height Weight 03/03/18 0003 114/74 98.2 ?F (36.8 ?C) Oral 94 16 97 % 5' 10 89.9 kg (198 lb 3.2 oz) Physical Exam Constitutional: He is oriented to person, place, and time. He appears well- developed and well-nourished. No distress. HENT: Head: Normocephalic and atraumatic. Nose: Nose normal. Mouth/Throat: Oropharynx is clear and moist. No oropharyngeal exudate. Eyes: Conjunctivae and EOM are normal. Pupils are equal, round, and reactive to light. Right eye exhibits no discharge. Left eye exhibits no discharge. No scleral icterus. Neck: Neck supple. No JVD present. No tracheal deviation present. Cardiovascular: Normal rate, regular rhythm, normal heart sounds and intact distal pulses. Exam reveals no gallop and no friction rub. No murmur heard. Pulmonary/Chest: Effort normal and breath sounds normal. No stridor. No respiratory distress. He has no wheezes. He has no rales. Musculoskeletal: Normal range of motion. He exhibits no edema or tenderness. Hands: 1 cm laceration to volar aspect of left hand, and the webspace between the thumb and index finger Neurological: He is alert and oriented to person, place, and time. No cranial nerve deficit. He exhibits normal muscle tone. Coordination normal. Skin: Skin is warm and dry. No rash noted. He is not diaphoretic. No erythema. Psychiatric: He has a normal mood and affect. His behavior is normal. Nursing note and vitals reviewed. MEDICAL DECISION MAKING 23-year-old male presents complaints of left hand laceration sustained at work. Laceration is anesthetized, thoroughly cleansed, irrigated, closed by me with 5- 0 Ethilon sutures. Patient tolerated procedure well. He will be placed in Neosporin bandage with work health follow-up for suture removal in 10 days. His left hand is neurovascularly intact there is no evidence of flexor tendon, nerve or vascular injury. Released home in stable condition to follow-up. The encounter diagnosis was Laceration of left hand without foreign body, initial encounter. John Broussard CNP Labs Reviewed - No data to display Radiographic Imaging (if any) During ED Visit No orders to display Medications Ordered/Given During ED Visit Medications - No data to display Wound extent: Lac Repair Date/Time: 03/03/2018 1:11 AM Performed by: JOHN BROUSSARD Authorized by: LINDSEY PARTIDA Verbal consent: obtained Written consent: not obtained Consent given by: patient Body area: upper extremity Location details: left hand Laceration length: 1 cm Foreign bodies: no foreign bodies Tendon involvement: none Nerve involvement: none Vascular damage: no Anesthesia: local infiltration Anesthesia: Local Anesthetic: lidocaine 1% without epinephrine Anesthetic total: 5 mL Patient sedated: no Repair type: simple Preparation: Patient was prepped and draped in the usual sterile fashion. Irrigation solution: saline Irrigation method: syringe Amount of cleaning: standard Wound exploration: wound explored through full range of motion and entire depth of wound probed and visualized no foreign body, no tendon damage, no underlying fracture and no vascular damage Debridement: none Degree of undermining: none Skin closure: 5-0 ethilon Number of sutures: 2 Technique: simple interrupted Approximation: close Approximation difficulty: simple Dressing: antibiotic ointment Patient tolerance: Patient tolerated the procedure well with no immediate complications John Broussard CNP 03/03/18 0112 Formatting of this note may be different from the original. I personally interviewed the patient. I personally examined the patient. I discussed the patient with NUT SORTER/PA. I agree with the NUT SORTER/PA treatment plan. I agree with the NUT SORTER/PA plan of care. I agree with the NUT SORTER/PA dispo as documented. 23-year-old [id number] male presents emergency department today with laceration on the palmar aspect of the left hand, just proximal to the base of the thumb between the webspace of the first and second digit. Said this occurred at work while he was shucking oysters. He denies any numbness or tingling. Immunizations/tetanus up-to-date. Denies any other complaints. On my exam, wound repaired with 2 sutures. No bleeding. Median, ulnar, radial nerve motor and sensation are intact. Wound care instructions were discussed. Return precautions were given. Discussed with the patient that if they have worsening symptoms or other concerns, they are to seek medical attention. They voiced understanding and have no further questions. Patient Vitals for the past 24 hrs: BP Temp Temp src Pulse Resp SpO2 Height Weight 03/03/18 0003 114/74 98.2 ?F (36.8 ?C) Oral 94 16 97 % 5' 10 89.9 kg (198 lb 3.2 oz) Medications Administered (if any) Medications - No data to display Laboratory Results Labs Reviewed - No data to display Imaging Results No orders to display Procedures . . Physician at bedside. Visitor at bedside. Patient is resting . Call light within reach. Patient updated on continued plan of care. PT arrives with c/o laceration to L hand from shucking oysters. Bleeding controlled at this time. Movement of fingers witnessed, denies numbness/tingling. PT unsure of last tetanus.in this encounter Formatting of this note may be different from the original. ED PROVIDER NOTE [facility] EMERGENCY DEPARTMENT NAME: Héctor Conway AGE: 22 y.o. : 1995 VISIT DATE: 06/02/2017 CSN: [id number] PCP: Physician No Chief Complaint Patient presents with Abdominal Pain Nausea Emesis History provided by: Patient History of present illness on a 22-year-old male who presents to the emergency department with recurrent epigastric pain, nausea vomiting and diarrhea. Patient reports that his episode started today approximately 1 hour prior to arrival. Patient reports a history over the last 2 years of similar episodes. Patient states that his epigastric pain is about a 6 out of 10, he describes it as burning and states it has been constant over the last hour. Patient denies any hematemesis, hematochezia or melenic stool. Past Medical History: Diagnosis Date Migraines Multiple gastric ulcers sts ulcers came back clear History reviewed. No pertinent surgical history. History reviewed. No pertinent family history. Social History Social History Marital status: Single Spouse name: N/A Number of children: N/A Years of education: N/A Occupational History Not on file. Social History Main Topics Smoking status: Current Every Day Smoker Packs/day: 0.10 Smokeless tobacco: Never Used Alcohol use Yes Comment: occ Drug use: Yes Special: Marijuana Sexual activity: Not on file Other Topics Concern Not on file Social History Narrative No narrative on file Previous Medications DICYCLOMINE (BENTYL) 10 MG CAPSULE Take 1 (one) capsule (10 mg total) by mouth 3 (three) times a day as needed. ONDANSETRON (ZOFRAN) 4 MG TABLET Take 1 (one) tablet (4 mg total) by mouth every 6 (six) hours as needed for nausea. No Known Allergies Review of Systems Constitutional: Negative for chills and fever. HENT: Negative for ear pain, sinus pressure and sore throat. Eyes: Negative for pain and visual disturbance. Respiratory: Negative for cough, chest tightness and shortness of breath. Cardiovascular: Negative for chest pain and palpitations. Gastrointestinal: Positive for abdominal pain, diarrhea, nausea and vomiting. Negative for constipation. Genitourinary: Negative for dysuria, flank pain and hematuria. Musculoskeletal: Negative for myalgias. Skin: Negative for rash. Neurological: Negative for dizziness, syncope, weakness, light-headedness, numbness and headaches. Psychiatric/Behavioral: Negative. Negative for hallucinations. All other systems reviewed and are negative. Positives and pertinent negatives as per HPI. All other systems were reviewed and are negative. Patient Vitals for the past 24 hrs: BP Temp Temp src Pulse Resp SpO2 Height Weight 06/02/17 1953 - 97.5 F (36.4 C) Oral - - - - - 06/02/17 1801 (!) 157/109 - - 61 18 100 % - - 06/02/17 1656 (!) 159/105 98.6 F (37 C) Oral 73 18 100 % 5' 11 101.5 kg (223 lb 12.8 oz) Physical Exam Constitutional: He is oriented to person, place, and time. He appears well- developed and well-nourished. No distress. HENT: Head: Normocephalic and atraumatic. Eyes: EOM are normal. Neck: Normal range of motion. Neck supple. Cardiovascular: Normal rate, regular rhythm, normal heart sounds and intact distal pulses. Exam reveals no gallop and no friction rub. No murmur heard. Pulmonary/Chest: Effort normal and breath sounds normal. No respiratory distress. He has no wheezes. He has no rales. He exhibits no tenderness. Abdominal: Soft. Bowel sounds are normal. He exhibits no distension. There is tenderness. Epigastric tenderness to palpation. Musculoskeletal: Normal range of motion. Neurological: He is alert and oriented to person, place, and time. Skin: Skin is warm and dry. Capillary refill takes less than 3 seconds. Psychiatric: He has a normal mood and affect. His behavior is normal. Judgment and thought content normal. Nursing note and vitals reviewed. Laboratory & Radiographic Imaging (if done): Results for orders placed or performed during the hospital encounter of 06/02/17 CMP Result Value Ref Range Sodium 138 135 - 145 mmol/L Potassium 3.3 (L) 3.5 - 5.1 mmol/L Chloride 96 (L) 98 - 108 mmol/L Bicarbonate 25 21 - 32 mmol/L Anion Gap 20 10 - 20 mmol/L Glucose 106 (H) 65 - 99 mg/dL BUN 10 8 - 25 mg/dL Creatinine 1.00 0.50 - 1.30 mg/dL eGFR 106 >=60 mL/min/1.73 m2 BUN/Creatinine Ratio 10.0 10.0 - 20.0 Total Protein 7.9 6.0 - 8.0 g/dL Albumin 4.9 3.2 - 5.2 g/dL Calcium 9.9 8.4 - 10.2 mg/dL Alkaline Phosphatase 65 40 - 140 U/L AST 30 0 - 45 U/L ALT 37 0 - 40 U/L Total Bilirubin 0.6 0.0 - 1.3 mg/dL Lipase Result Value Ref Range Lipase 35 15 - 65 U/L Urinalysis Result Value Ref Range Color, Urine Yellow Colorless, Yellow Clarity, Urine Hazy (A) Clear Specific Blair 1.015 1.005 - 1.025 pH, Urine 8.0 (H) 5.0 - 7.0 Protein, Urine Negative Negative mg/dL Glucose, Urine Negative Negative mg/dL Ketones, Urine 20 (A) Negative mg/dL Bilirubin, Urine Negative Negative Urobilinogen, Urine <2.0 <2.0 mg/dL Blood, Urine Negative Negative Nitrite, Urine Negative Negative Leukocyte Esterase, Urine Negative Negative Bacteria, Urine Rare (A) None Seen /hpf Mucus, Urine Rare None Seen, Rare /lpf Gold Top Result Value Ref Range Extra Tube Hold for add-ons. Light Blue Top Result Value Ref Range Extra Tube Hold for add-ons. [place] Top Result Value Ref Range Extra Tube Hold for add-ons. Drugs of Abuse Screen, Urine Result Value Ref Range Amphetamine Screen, Urine None Detected None Detected Barbiturate Screen, Urine None Detected None Detected Benzodiazepine Screen, Urine None Detected None Detected Cannabinoid Screen, Urine Presumptive Positive (A) None Detected Cocaine, Screen Urine Presumptive Positive (A) None Detected Methadone Screen, Urine None Detected None Detected Opiate Screen, Urine None Detected None Detected Oxycodone Screen, Urine None Detected None Detected CBC Auto Differential Result Value Ref Range WBC 8.80 4.50 - 11.00 K/mcL RBC 5.55 4.50 - 5.90 M/mcL Hemoglobin 16.3 13.5 - 17.5 g/dL Hematocrit 46.1 41.0 - 53.0 % MCV 83.1 80.0 - 100.0 fL MCH 29.4 26.0 - 34.0 pg MCHC 35.4 31.0 - 37.0 g/dL Platelets 273 150 - 400 K/mcL RDW - CV 12.7 11.6 - 14.8 % MPV 11.9 9.0 - 15.5 fL Neutrophils 60.2 % Lymphocytes 28.8 % Monocytes 8.2 % Eosinophils 1.6 % Basophils 0.9 % IG Percent 0.30 % Neutrophils Abs 5.30 1.70 - 7.00 K/mcL Lymphocytes Abs 2.53 0.90 - 4.00 K/mcL Monocytes Abs 0.72 0.30 - 0.90 K/mcL Eosinophils Abs 0.14 0.00 - 0.50 K/mcL Basophils Abs 0.08 0.00 - 0.30 K/mcL IG Absolute 0.03 0.00 - 0.30 K/mcL Nucleated RBC 0.0 % Nucleated RBC Abs 0.00 0.00 - 0.00 K/mcL No orders to display Procedures MDM Medical decision making on a 22-year-old male who presents to the emergency department with an acute on chronic onset of epigastric pain nausea vomiting and diarrhea. Patient was actively vomiting on my initial evaluation. Patient was treated with Zofran and then a GI cocktail per his request. Patient states over the last 2 years he has had multiple episodes of similar events. Patient states that he had a negative upper endoscopy done at [facility] 1 month ago. Patient had a negative CT scan here in February. I am uncertain as to what exactly Tressa is causing these acute episodes. Patient does smoke marijuana on a regular basis and I believe that this may be some hyperemesis associated with chronic marijuana ingestion. I did discuss this with the patient and he told me that this idea had been brought up to him on other occasions. However, patient does not believe that marijuana is the source of his nausea and vomiting as he stated to me he did stop for a couple months once and he did get sick again. Patient was treated in the emergency department with 2 L of normal saline. Patient's potassium is slightly low 3.3, chloride 96, gap is unremarkable, glucose 106 renal function is unremarkable. Lipase is negative. There is no leukocytosis or leukopenia, there is no anemia, no thrombocytosis or thrombopenia. Patient was treated with Capsaicin topical for hyperemesis associated with marijuana ingestion. And later given Benadryl and Reglan which did deviate his nausea and vomiting. Patient's urinalysis shows no acute signs of infection there is rare bacteria and 20 ketones. Urine drug screen is positive for THC and cocaine. Patient is stable for discharge home. I will give him referral to transition of care clinic so that he may establish PCP she has been instructed it would be in his best interest to stop smoking marijuana. ED Course The patient has been informed that they may have pre-hypertension or hypertension based on a blood pressure reading in the Emergency Department. I recommend that the patient call the primary care provider listed on their discharge instructions or a physician of their choice as soon as possible to arrange follow-up in the next 4 weeks for further evaluation of possible pre-hypertension or hypertension. . Clinical Impression: SNOMED CT(R) 1. Nausea and vomiting, intractability of vomiting not specified, unspecified vomiting type NAUSEA AND VOMITING 2. Epigastric pain EPIGASTRIC PAIN Follow-up Information 1. Follow up with [facility]. Specialty: Transition of Care [address] [place] [address] [address] [facility] [facility] [id number] New Prescriptions METOCLOPRAMIDE (REGLAN) 10 MG TABLET Take 1 (one) tablet (10 mg total) by mouth 3 (three) times a day as needed. (Please note that portions of this note may have been completed with a voice recognition software. Efforts were made to correct any errors, but occasionally words are mis-transcribed.) Nay Gamino, EMILY 06/02/17 7881 I personally interviewed the patient. I personally examined the patient. I discussed the patient with NUT SORTER/PA. I agree with the NUT SORTER/PA treatment plan. I agree with the NUT SORTER/PA plan of care. I agree with the NUT SORTER/PA dispo as documented. The patient has been informed that they may have pre-hypertension or hypertension based on a blood pressure reading in the Emergency Department. I recommend that the patient call the primary care provider listed on their discharge instructions or a physician of their choice as soon as possible to arrange follow-up in the next 4 weeks for further evaluation of possible pre-hypertension or hypertension. . The patient is a 22-year-old male who started at 4:30 today having nausea, vomiting, and diarrhea. He denies vomiting any blood or any bloody diarrhea. He says he has had these episodes periodically and they have done CT scans and upper endoscopy, and have not found anything specific. At one point in time, they did talk to him about it possibly being related to his use of marijuana, but he says he did stop it for 2 months and he said he still had some episodes, so he has continued to smoke marijuana. PHYSICAL EXAM Shows that: Lungs: Clear. Cardiac: Regular rhythm. Abdomen: Soft with just some mild diffuse tenderness without rebound, guarding, or masses noted. Pt states pain originally dropped to a 4/10 when Toradol, GI cocktail and bentyl were given, but has risen back to a 5 or 6. ED cart rails up, call light within reach and warm blankets applied for comfort. Pt sits up and is gagging, but not episodes of emesis. Pt states that he feels really cold despite blanket application. Pt made aware of need for urine sample. Patient complaining of n/v and severe abd pain x 1 hour. Patient stated this has been a reoccurring issue over the last couple years.in this encounter Maya Hampton MD - 09/10/2017 5:50 PM EST H&P Notes (unrecognized sect ion and content) Formatting of this note may be different from the original. [facility] History and Physical Patient Name: Héctor Conway : 1995 MR #: [id number] Admit Date: [id number] Physicians: Physician No (Family); No ref. provider found (Referring) Héctor Conway is a 22 y.o. male patient of Physician Lena with history of chronic abdominal pain and regular THC use comes in with acute abdominal pain, nausea, vomiting- 1. Cyclical Vomiting Syndrome- admit for symptomatic care with IVF, PRN Zofran, Reglan. Advance diet as tolerated. Encourage THC cessation. Admitted From: Home Quality Measures DVT Prophylaxis: Ambulate Browning Catheter: None Chief Complaint: abdominal pain, nausea, vomiting History of Present Illness: 22 yo with chronic abdominal pain and regular THC use comes in with acute abdominal pain, nausea, vomiting and inability to keep anything down. He has felt sick for last 5 days with pain that comes in spasms/cramping nad is generalized all over abdomen. It is severe when he gets the episode and along with this he has had Nausea and Vomiting. Usually the symptoms are better with hot showers but not this time. He has no cough, SOB, CP or fevers. No UTI symptoms. He has had an EGD and a GES in past. Past Medical History: Past Medical History: Diagnosis Date Migraines Multiple gastric ulcers sts ulcers came back clear Past Surgical Hisory: Past Surgical History: Procedure Laterality Date ESOPHAGOGASTRODUODENOSCOPY SHOULDER ARTHROSCOPY Right Family History: History reviewed. No pertinent family history. Social History: History Smoking Status Current Every Day Smoker Packs/day: 0.10 Types: Cigarettes Smokeless Tobacco Never Used History Alcohol Use Yes Comment: occ History Drug Use Types: Marijuana Allergy Information: I have reviewed the patient's allergies. Patient has no known allergies. Home Medications: Home medications were reviewed. ROS: The following system(s) were reviewed: Constitutional:No fever, no weight loss Eyes:No diplopia ENT:No sinus drainage CV:No chest pain. No ankle swelling Resp:No dyspnea. No wheezing :No dysuria Neuro:No headache Integumentary:No skin rash MuscSkel:No arthralgias Endo:No polyuria Heme/lymphatic:No apparent lymphadenopathy Allergic/Immunologic:No hives Psych:No unusual mood swings All other systems reviewed and negative other than HPI. PHYSICAL EXAMINATION: BP 122/78 Pulse 75 Temp 98.4 ?F (36.9 ?C) (Oral) Resp 16 Ht 5' 10 Wt 99.8 kg (220 lb) SpO2 96% BMI 31.57 kg/m General appearance: Alert, well appearing, and in no acute distress. HEENT: Head- normocephalic, atraumatic. Eyes - JOSE bilaterally and EOMI. Ears - normal external appearance, hearing intact. Nose - normal, no erythema. Throat- mucous membranes moist, pharynx without lesions. Neck: supple, trachea midline. Cardiovascular: S1,S2 normal. No murmurs, rubs, clicks or gallops appreciated. No pedal edema. Respiratory: Lungs clear to auscultation, no wheezes, rales or rhonchi heard Abdomen: Soft,+tenderness, normal bowel sounds, nondistended, no masses or organomegaly appreciated. Neurological: Alert, oriented X 3. Grossly normal motor and sensory exam. No focal deficits. Musculoskeletal: No joint tenderness, deformity or swelling. Skin: Normal coloration and turgor. No rashes. Psych: Normal mood and affect Laboratory and Additional Data Reviewed: Laboratory 09/10/17 6:29 PM Microbiology 09/10/17 6:29 PM Pathology 09/10/17 6:29 PM Radiology 09/10/17 6:29 PM Cardiology 09/10/17 6:29 PM Medications 09/10/17 6:29 PM Transcriptions 09/10/17 6:29 PM Expected Discharge/Time Spent: NA renetta this encounter (unrecognized sect ion and content) No Status Records FoundNo Status Records FoundNo Status Records FoundNo Status Records FoundNo Status Records FoundNo Status Records Found INFORMATION SOURCE (unrecogn ized section and content) DATE CREATED AUTHOR AUTHOR'S ORGANIZ ATION 03/21/2019 [facility] DATE CREATED AUTHOR AUTHOR'S ORGANIZ ATION 03/21/2019 [facility] DATE CREATED AUTHOR AUTHOR'S ORGANIZ ATION 02/06/2021 [facility] DATE CREATED AUTHOR AUTHOR'S ORGANIZ ATION 05/21/2021 [facility] DATE CREATED AUTHOR AUTHOR'S ORGANIZ ATION 11/12/2022 [facility] Reason for Visit (unrecogniz ed section and content) Reason Comments eval for colonoscopy Reason Comments Dental Pain Reason Comments Urticaria Status Reason Specialty Diagnoses / Procedures Referred By Contact Referred To Contact Closed Dermatology Diagnoses Marii Coleman MD [address] [place] [address] [facility] [address] [place] [address] Reason Comments Vomiting Pain between shoulde rs blades x 2 days Ting Rand RN - 12/13/2018 8:35 PM EDTSCam leyva DO - 12/13/2018 7:57 PM EDTEmelina Erickson RN - 12/13/2018 7:26 PM EDT ED Notes (unrecognized secti on and content) Discharge instructions, medications, and follow up care reviewed. Questions answered. ED PROVIDER NOTE [facility] EMERGENCY DEPARTMENT NAME: Héctor Conway AGE: 23 y.o. : 1995 VISIT DATE: 12/13/2018 CSN: [id number] PCP: Chidi Workman DO Chief Complaint Patient presents with Dental Pain 23-year-old male presents emergency room for left dental pain and swelling. States he had some fillings placed in 2 of the front teeth about 2 weeks ago. Yesterday started getting some pain in the left upper jaw all region. The pain has spread up a little bit into the face associated with some swelling. He denies fevers. He is tried mnmt-gos-oylphdt medications with no luck. History provided by: Patient Dental Pain Associated symptoms: no congestion, no fever and no headaches Past Medical History: Diagnosis Date Cannabis hyperemesis syndrome concurrent with and due to cannabis dependence (HCC) Migraines Past Surgical History: Procedure Laterality Date ESOPHAGOGASTRODUODENOSCOPY SHOULDER ARTHROSCOPY Right History reviewed. No pertinent family history. Social History Socioeconomic History Marital status: Single Spouse name: Not on file Number of children: Not on file Years of education: Not on file Highest education level: Not on file Social Needs Financial resource strain: Not on file Food insecurity - worry: Not on file Food insecurity - inability: Not on file Transportation needs - medical: Not on file Transportation needs - non-medical: Not on file Occupational History Not on file Tobacco Use Smoking status: Current Every Day Smoker Packs/day: 0.10 Types: Cigarettes Smokeless tobacco: Never Used Substance and Sexual Activity Alcohol use: Yes Comment: occ Drug use: Yes Types: Marijuana Sexual activity: Not on file Other Topics Concern Not on file Social History Narrative Not on file Previous Medications Medication Sig dicyclomine (BENTYL) 10 MG capsule Take 1 (one) capsule (10 mg total) by mouth 3 (three) times a day as needed. zlitlvjz-khcvircyu-eyriqxsqarnim (MAXITROL) 3.5mg/mL-10,000 unit/mL-0.1 % ophthalmic suspension Apply 1 drop to eye 2 (two) times a day. ondansetron (ZOFRAN) 4 MG tablet Take 1 (one) tablet (4 mg total) by mouth every 8 (eight) hours as needed for nausea. pantoprazole (PROTONIX) 40 MG tablet Take 1 (one) tablet (40 mg total) by mouth 2 (two) times a day . No Known Allergies Review of Systems Constitutional: Negative. Negative for chills, diaphoresis, fatigue and fever. HENT: Negative. Negative for congestion, nosebleeds and sore throat. Respiratory: Negative. Negative for cough and shortness of breath. Cardiovascular: Negative. Gastrointestinal: Negative. Negative for abdominal pain, diarrhea, nausea and vomiting. Genitourinary: Negative. Negative for dysuria. Musculoskeletal: Negative. Skin: Negative. Negative for rash. Neurological: Negative. Negative for seizures, light-headedness, numbness and headaches. Hematological: Negative. Psychiatric/Behavioral: Negative. All other systems reviewed and are negative. Patient Vitals for the past 24 hrs: BP Temp Temp src Pulse Resp SpO2 Height Weight 12/13/18 1930 134/89 100.2 F (37.9 C) Oral (!) 105 18 98 % 5' 10 88 kg (194 lb 1 oz) Physical Exam Constitutional: He appears well-developed and well-nourished. HENT: Head: Normocephalic and atraumatic. Patient has some soft tissue swelling along the left cheek region just lateral to the nose extending down to the lip. The inside of the mouth does not reveal any localized abscess. There are no fractures of the teeth. Cardiovascular: Normal rate and regular rhythm. Pulmonary/Chest: Effort normal and breath sounds normal. Skin: Skin is warm and dry. Psychiatric: He has a normal mood and affect. His behavior is normal. Nursing note and vitals reviewed. Laboratory & Radiographic Imaging (if done): No results found for this visit on 12/13/18. No orders to display Procedures MDM Number of Diagnoses or Management Options Dental infection: Dentalgia: Diagnosis management comments: Patient will be started on penicillin and pain medication. He is to call his dentist office tomorrow. There was no localized abscess to drain. The patient has been informed that they may have pre-hypertension or hypertension based on a blood pressure reading in the Emergency Department. I recommend that the patient call the primary care provider listed on their discharge instructions or a physician of their choice as soon as possible to arrange follow-up in the next 4 weeks for further evaluation of possible pre-hypertension or hypertension. . Clinical Impression: SNOMED CT(R) 1. Dental infection INFECTION OF TOOTH 2. Dentalgia TOOTHACHE ED Disposition ED Disposition Condition Comment Discharge Stable Héctor Conway discharged to home/self care in stable condition. Follow-up Information 1. Your dentist. Contact information for after-discharge care Follow-up information has not been specified. New Prescriptions penicillin v potassium (VEETID) 500 MG tablet Take 1 (one) tablet (500 mg total) by mouth 3 (three) times a day . HYDROcodone-acetaminophen (NORCO) 5-325 mg per tablet Take 1 (one) tablet by mouth every 4 (four) hours as needed for pain . Cam Espinal DO 12/13/181999 Patient ambulates to triage desk with c/o I think my tooth is infected. Patient's left side of cheek is swollen. Patient states I had a filling done a couple weeks ago on the same side. documented in this encounter Source Comments (unrecognize d section and content) In the event this informatio n is protected by the Federal Confidentiality of Alcohol and Drug Abuse Patient Records regulations: The Federal rules restrict any use of the information to criminally investigate or prosecute any alcohol or drug abuse patient.[facility] FOR RECORDS PERTAINING TO PATIENTS WHO ARE OR HAVE BEEN ENROLLED IN A CHEMICAL DEPENDENCY/SUBSTANCEABUSE PROGRAM, SOME INFORMATION MAY BE OMITTED. This clinical summary was aggregated from multiple sources. Caution should be exercised in using it in the provision of clinical care. This summary normalizes information from multiple sources, and as a consequence, information in this document may materially change the coding, format and clinical context of patient data. In addition, data may be omitted in some cases. CLINICAL DECISIONS SHOULD BE BASED ON THE PRIMARY CLINICAL RECORDS. [facility] [email or web address] [facility]. provides no warranty or guarantee of the accuracy or completeness of information in this document.
== END | disposition home or self-care (01) ==
PROVIDERS: Referring Provider Nurse Practitioner Family; Visit Provider Nurse Practitioner Family
DX: G47.10 Hypersomnia, unspecified (principal)
CPT/HCPCS: 95810

== ENCOUNTER 2024-10-05 17:22 | Emergency (ER) | payer OTHER, SELFPAY ==
[2024-10-05 17:26] VITALS: BP 134/91; PULSE 101; RESP 18; TEMP 36.6; O2SAT 98
--- NOTE | 2024-10-05 22:46 | ED.VIS.BACK ---
HPI History of Present Illness Chief Complaint: Back Informant: patient Onset/Context/Timing Onset: Yesterday Context: Sudden Onset Timing: Continuous Quality: Sharp and Aching Location: Lumbar and Buttock Worsened by: improves with Bending Relieved by: Nothing Associated Symptoms Associated Symptoms: Negative for Numbness, Tingling, Radiation to Right Leg, Radiation to Left Leg, Fever, Abdominal Pain, Dysuria, Unable to Ambulate, Unable to Transfer, Urinary Retention, Urinary Incontinence, Constipation or Fecal Incontinence Narrative Narrative: Patient presents with back pain that began yesterday after going to the chiropractor. Patient states that when he was getting off of the chiropractor table he felt pain in his low back. Patient states chiropractor readjusted his back and he was able to get up off of the table but was still having some pain. Patient states it became worse today. Patient describes it as aching but sharp at times. Patient states it is worse when he bends forward. Patient states it is mainly in the lower lumbar area but does radiate into his buttocks. Patient denies any radiation of the pain down his legs. Patient denies any abdominal pain. Patient denies any bowel or bladder changes. Patient denies any saddle anesthesia. [facility] Medical History Back pain due to injury Chronic headaches Tetrahydrocannabinol (THC) use disorder, mild, abuse Wears partial dentures ADHD Colitis Nausea and vomiting Depression Anxiety Alcohol use Marijuana use Restless legs Injury of back Injury of head and neck History of ulceration Asthma Vapes nicotine containing substance Cannabis hyperemesis syndrome concurrent with and due to cannabis abuse Colon wall thickening Home Medications ?Medication ?Instructions ?Recorded ?Last Taken ?Type buspirone 10 mg tablet 10 mg PO BID 09/21/21 Unknown History hydroxyzine pamoate 50 mg capsule 50 mg PO Q8H PRN anxiety 10/04/21 Unknown History (Vistaril) dextroamphetamine-amphetamine 5 mg 5 mg PO 1500 10/05/21 Unknown History tablet (Adderall) dextroamphetamine-amphetamine ER 30 mg PO DAILY 10/05/21 Unknown History 25 mg 24hr capsule,extend release (Adderall XR) pantoprazole 40 mg tablet,delayed 40 mg PO DAILY #90 TABLETS 03/12/24 Unknown Rx release cyclobenzaprine 10 mg tablet 10 mg PO QHS PRN PRN Muscle Spasm 10/05/24 Unknown Rx #10 TABLETS hydrocodone-acetaminophen 5-325mg 1 tab PO Q6H PRN PRN Pain 3 days 10/05/24 Unknown Rx 5mg-325mg #10 TABLETS Allergy/AdvReac Type Severity Reaction Status Date / Time No Known Allergies Allergy Verified 10/05/24 17:26 Surgical History Hx of colonoscopy with polypectomy History of esophagogastroduodenoscopy (EGD) History of shoulder surgery Social History Smoking Status: Current some day smoker tobacco type: e-cigarettes ROS ROS ED Constitutional Constitutional ED: Denies chills or fever(s) Eyes Eyes: Denies blurry vision or change in vision ENT ENT ED: Denies rhinorrhea or sore throat Cardiovascular Cardiovascular: Denies chest pain or palpitations Respiratory/Chest Respiratory/Chest: Denies cough or dyspnea Gastrointestinal Gastrointestinal: Denies nausea or vomiting Genitourinary Genitourinary ED: Denies dysuria or hematuria Musculoskeletal Musculoskeletal: Reports back pain and neck pain Integumentary Denies abscess or rash Neurologic Neurologic: Denies headache(s) or weakness Allergic/Immunologic Allergic/Immunologic ED: Denies mouth swelling or urticaria EXAM Physical Exam Const Vital Signs: 10/05/24 17:26 Temperature 97.8 F Temperature Source Temporal Pulse Rate 101 H Respiratory Rate 18 Blood Pressure 134/91 H Blood Pressure Mean 105 Pulse Ox 98 Positive well nourished and well developed General Appearance ED: well developed and NAD HEENT Reports moist mucous membranes Neck supple Back/Spine Back/Spine Narrative: There is tenderness over the lumbar spine and paraspinal muscles. There is spasm of the lumbar paraspinal muscles. There is no bony crepitus or step-off. Range of motion was limited in all motions of the lumbar spine secondary to pain. Strength is 5/5 bilaterally in the lower extremities. There are no sensory deficits noted. Deep tendon reflexes are 2/4 bilaterally in the lower extremities. Straight leg raises were negative bilaterally. Lumbar Spine / Lower Back: ROM limited and straight leg raise negative bilaterally Extremity normal to inspection Neuro oriented x3 and no sensory deficits noted Sensorium / Orientation: alert Motor Exam: strength 5/5 throughout Deep Tendon Reflexes: Rt Patellar (L4): 2+, Lt Patellar (L4): 2+, Rt Ankle (S1): 2+ and Lt Ankle (S1): 2+ Deep Tendon Reflexes Back: Rt Patellar (L4): 2+, Lt Patellar (L4): 2+, Rt Ankle (S1): 2+ and Lt Ankle (S1): 2+ Psych mental status grossly normal MDM MDM MDM Narrative Medical decision making narrative: Patient was advised that this is most likely a muscular strain. Patient was given prescription for Flexeril and a short course of [place]. Patient was instructed to use ice or heat for his low back. Patient was instructed to follow-up with his primary care physician in 5 to 7 days. Patient was instructed to return if worse in any way. Patient understood and was agreeable with the plan. All questions were answered. Discharge Plan Triage Chief Complaint: Back ED Provider: Jack Contreras Dx/Rx/DC Orders Clinical Impression: Acute myofascial strain of lumbosacral region, Acute low back pain Instructions: ED Back Spasm, No Trauma, ED Back Sprain/Strain Prescriptions: New cyclobenzaprine 10 mg tablet 10 mg PO QHS PRN PRN (Reason: Muscle Spasm) Qty: 10 0RF hydrocodone-acetaminophen 5-325 mg tablet 1 tab PO Q6H PRN PRN (Reason: Pain) 3 Days Qty: 10 0RF No Action hydroxyzine pamoate [Vistaril] 50 mg capsule 50 mg PO Q8H PRN (Reason: anxiety) pantoprazole 40 mg tablet,delayed release (DR/EC) 40 mg PO DAILY Qty: 90 4RF buspirone 10 mg tablet 10 mg PO BID Patient Comments: TAKE 1 TABLET BY MOUTH TWICE DAILY dextroamphetamine-amphetamine [Adderall] 5 mg Tablet 5 mg PO 1500 dextroamphetamine-amphetamine [Adderall XR] 25 mg Capsule,Extended Release 24hr 30 mg PO DAILY Primary Care Provider: [facility] Olive Nguyen Referrals: [facility] Olive Nguyen [Primary Care Provider] - 5-7 Days Print Language: Uzbek Disposition Disposition: Home, Self Care
[2024-10-05 23:01] VITALS: BP 115/85; PULSE 97; RESP 16; TEMP 36.6; O2SAT 98
== END 2024-10-05 23:11 | disposition home or self-care (01) ==
LOC: ED 23:11
PROVIDERS: Emergency Provider Emergency Medicine; PCP Nurse Practitioner Family; Visit Provider Emergency Medicine
DX: S39.012A Strain of muscle, fascia and tendon of lower back, initial encounter (principal); X58.XXXA Exposure to other specified factors, initial encounter; F90.9 Attention-deficit hyperactivity disorder, unspecified type; F41.9 Anxiety disorder, unspecified; F32.A Depression, unspecified; F17.290 Nicotine dependence, other tobacco product, uncomplicated; Z79.899 Other long term (current) drug therapy
CPT/HCPCS: 99282

== ENCOUNTER → 2025-05-18 | Outpatient (CLI) | payer OTHER, SELFPAY ==
[2025-05-18 12:16] LABS: Hematocrit 43.9 % (40-54); Hemoglobin 15.0 g/dL (13.0-16.5); Immature Granulocytes Count 0.020 X10^3/uL (0.0-0.0); Mean Corp Hgb Conc 34.2 g/dL (32-36); Mean Corpuscular Volume 84.4 fL (80-94); Mean Platelet Vol. 12.1 fl (6.2-12.0); NRBC Flagged by Analyzer 0 % (0-5); Platelet Count 230 K/mm3 (150-450); RBC Distribution Width CV 13.5 % (11.6-14.6); RBC Distribution Width SD 41.7 fl (35.1-43.9); Red Blood Count 5.20 M/mm3 (4.6-6.2); White Blood Count 3.8 K/mm3 (4.4-11.0)
[2025-05-18 13:13] LABS: Cholesterol 162 mg/dL (<=200); Low Density Lipoprotein Calc. 104 mg/dL; Triglycerides 82 mg/dL; Very Low Density Lipoprotein 16 mg/dL (5-40); Vitamin B12 612 pg/mL (180-914); Vitamin D,25 Hydroxy 29.9 ng/mL (30-100); cholesterol:hdl ratio screen 3.86
[2025-05-22 16:08] LABS: Testosterone, % Free 2.71 % (1.50-4.20); Testosterone, Free 4.31 ng/dL (5.00-21.00)
== END | disposition home or self-care (01) ==
LOC: VSLAB 10:06
PROVIDERS: PCP Nurse Practitioner Family
DX: Z00.00 Encounter for general adult medical examination without abnormal findings (principal); R53.83 Other fatigue
CPT/HCPCS: 36415; 80061; 82306; 82607; 84402; 84403; 84443; 85025

== ENCOUNTER 2025-05-26 10:11 | Day surgery (SDC) | payer OTHER, SELFPAY ==
[2025-05-26] VITALS (9 sets, daily range): BP systolic 100–120; BP diastolic 62–84; PULSE 85–98; RESP 16–20; TEMP 36.2–36.6; O2SAT 93–98; BMI 37.3
[2025-05-26] MEDS: Lactated Ringers 1,000 ML 15 ML IV (10:46)
== END 2025-05-26 13:20 | disposition home or self-care (01) ==
LOC: EN 10:12 → AC 10:57
PROVIDERS: PCP Nurse Practitioner Family; Referring Provider Nurse Practitioner Family; Visit Provider Internal Medicine Gastroenterology
PROC: 0DJ08ZZ Inspection of Upper Intestinal Tract, Via Natural or Artificial Opening Endoscopic (ICD-10-PCS; CPT 43235; principal; 2025-05-26 11:10)
DX: K21.00 Gastro-esophageal reflux disease with esophagitis, without bleeding (principal); K31.84 Gastroparesis; Z79.899 Other long term (current) drug therapy; Z79.85 Long-term (current) use of injectable non-insulin antidiabetic drugs; J45.909 Unspecified asthma, uncomplicated; F17.290 Nicotine dependence, other tobacco product, uncomplicated
CPT/HCPCS: 44361; 88305; J2405

== ENCOUNTER → 2025-05-30 | Outpatient (CLI) | payer OTHER, SELFPAY ==
[2025-05-30 12:10] LABS: Hematocrit 48.1 % (40-54); Hemoglobin 16.1 g/dL (13.0-16.5); Immature Granulocytes Count 0.010 X10^3/uL (0.0-0.0); Mean Corp Hgb Conc 33.5 g/dL (32-36); Mean Corpuscular Volume 83.9 fL (80-94); Mean Platelet Vol. 11.4 fl (6.2-12.0); NRBC Flagged by Analyzer 0 % (0-5); Platelet Count 299 K/mm3 (150-450); RBC Distribution Width CV 13.7 % (11.6-14.6); RBC Distribution Width SD 42.3 fl (35.1-43.9); Red Blood Count 5.73 M/mm3 (4.6-6.2); White Blood Count 5.8 K/mm3 (4.4-11.0)
[2025-05-30 12:46] LABS: Follicle Stimulating Hormone 1.8 mIU/mL
[2025-06-02 13:08] LABS: Testosterone, % Free 2.51 % (1.50-4.20); Testosterone, Free 4.77 ng/dL (5.00-21.00)
[2025-06-06 13:08] LABS: PROLACTIN 15.8 ng/mL (3.9-22.7)
== END | disposition home or self-care (01) ==
LOC: VSLAB 10:05
PROVIDERS: PCP Nurse Practitioner Family; Visit Provider Nurse Practitioner Family
DX: R89.1 Abnormal level of hormones in specimens from other organs, systems and tissues (principal); R53.83 Other fatigue; E66.9 Obesity, unspecified
CPT/HCPCS: 36415; 83001; 83002; 84146; 84402; 84403; 85025